=== PATIENT | female | born 1935 | race Caucasian/White ===

== ENCOUNTER 2018-10-03 00:10 | Inpatient (IN) | payer MEDICARE, OTHER, SELFPAY ==
[2018-10-03] VITALS (19 sets, daily range): BP systolic 130–183; BP diastolic 60–79; PULSE 51–66; RESP 12–20; TEMP 36–37; O2SAT 96–99; BMI 23.3
--- NOTE | 2018-10-03 | PATH_ITS ---
[facility] Accession Number: [id number] . 01 Material submitted: . hernia - RIGHT FEMORAL HERNIA SAC . 02 Diagnosis: Right Femoral Sac, Hernia Repair: Mildly inflamed portions of fibroconnective/fibroadipose tissue with a focal mesothelial lining, consistent with hernia sac and contents; negative for malignancy. MRV/10/07/2018 . 02 Electronically signed: . Jocelynn Bunn MD, Pathologist NPI- [id number] . 01 Gross description: . Received in formalin, labeled right femoral hernia sac, are multiple pieces of barba-yellow membranous adipose tissue (6.7 x 4.6 x 1.3 cm in aggregate). [employer] tissue submitted in cassette A1. ([id number]) /MRV . 02 Pathologist provided ICD-10: K40.90 . 02 CPT . 486070 Performed at: 01 [facility] [address], [place], [place] [id number] MD Jose Floyd MD Phone: [phone] Performed at: [address] [facility] [address] [place], [place] [id number] MD Rashmi Siegel MD Phone: [phone]
--- NOTE | 2018-10-03 00:28 | ED.ABDPAIN ---
HPI - Abdominal Pain General Chief Complaint: Abdominal Pain Stated Complaint: has belly pain Time Seen by Provider: 10/03/18 00:14 Source: patient Mode of arrival: ambulatory Limitations: no limitations History of Present Illness HPI narrative: Otherwise healthy 83-year-old female here for evaluation of vomiting and abdominal pain. Patient states she was at her normal state health earlier today when she started having episodes of vomiting. In started noticing lower abdominal pain and a lump in her right lower abdomen. No urinary symptoms. Arrived here with her daughter and by private vehicle. Related Data Home Medications Medication Instructions Recorded Confirmed No Known Home Medications 10/03/18 10/03/18 Allergies Allergy/AdvReac Type Severity Reaction Status Date / Time azithromycin Allergy Verified 10/03/18 00:28 Penicillins Allergy Verified 10/03/18 00:28 Review of Systems Constitutional Denies fever(s) and Denies headache(s) ENT Ears, Nose, Mouth, and Throat: Denies headache(s) Cardiovascular Denies chest pain and Denies dyspnea Respiratory Denies dyspnea Gastrointestinal Gastrointestinal: Reports abdominal pain, Denies change in stool character, Reports nausea and Denies vomiting Genitourinary Denies dysuria Musculoskeletal Denies myalgias and Denies arthralgias Integumentary/Breasts Denies rash Neurologic Denies behavioral changes and Denies headache(s) Psychiatric Denies behavioral changes Hematologic/Lymphatic Denies easy bleeding and Denies easy bruising COUNTS INCLUDE 234 BEDS AT THE [facility] Medical History (Updated 10/03/18 @ 02:09 by Dago Meyers DO) Breast cancer (Acute) Surgical History History of mastectomy (Acute) Hx of appendectomy (Acute) Social History Smoking Status: Never smoker Social History Smoking Status: Never smoker Exam Initial Vital Signs Initial Vital Signs: Vital Signs Temperature 97.4 F L 10/03/18 00:20 Pulse Rate 55 L 10/03/18 00:20 Respiratory Rate 16 10/03/18 00:20 Blood Pressure 166/74 H 10/03/18 00:20 Pulse Oximetry 98 10/03/18 00:20 Const General: cooperative, well developed, well groomed and No acute distress Orientation: alert and awake HENSC Head: normal to inspection and normocephalic Resp Effort & Inspection: normal respiratory effort Auscultation: clear to auscultation bilaterally Cardio Rate: regular rate Rhythm: regular rhythm Pulses: radial pulses present GI Inspection: non-distended Palpation: soft, No firm and tender (Right lower abdomen) Other: Patient has a lemon size mass in the right inguinal area that was tender to palpation. Patient states this is the source of her abdominal pain. Skin Lesions: no lesions Rashes: no rashes Neuro General: alert, awake and oriented x3 Cognition: normal cognition Speech: speech normal Motor: muscle tone normal throughout Extrem General: normal to inspection and capillary refill normal Psych Appearance: grossly normal and well kempt Scores GCS Fly coma scale eye opening: Spontaneous [place] coma scale verbal response: Orientated [place] coma scale motor response: Obey commands [place] coma scale total score: 15 Course Orders Ordered: ED Orders 10/03/18 00:29 CT abdomen pelvis w con Stat 10/03/18 00:30 Partial Thromboplastin Time Stat Prothrombin Time INR Stat 10/03/18 00:38 Complete Blood Count AUTO DIFF Stat Comprehensive Metabolic Panel Stat Lactate (Lactic Acid) Stat Lipase Stat 10/03/18 01:52 EKG-12 Lead Stat 10/03/18 02:01 Consult to General Surgery Routine 10/03/18 02:16 Type and Screen Stat Sodium Chloride (Normal Saline 0.9%) 1,000 mls @ 125 mls/hr IV CONT AMBER Last Admin: 10/03/18 01:57 Dose: 125 mls/hr Sodium Chloride (Normal Saline 0.9%) 1,000 mls @ 125 mls/hr IV CONT AMBER Morphine Sulfate (Morphine) 2 mg IV Q4HR PRN PRN Reason: Pain, Mild (1-3) Ondansetron HCl (Zofran) 4 mg IV Q4HR PRN PRN Reason: Nausea And Vomiting Discontinued Medications Sodium Chloride (Normal Saline 0.9%) 1,000 mls @ 1,000 mls/hr IV BOLUS ONE Stop: 10/03/18 01:27 Last Infusion: 10/03/18 01:57 Dose: 1,000 mls/hr Admin: 10/03/18 00:30 Dose: 1,000 mls/hr Morphine Sulfate (Morphine) 2 mg IV NOW ONE Stop: 10/03/18 02:01 Last Admin: 10/03/18 02:05 Dose: 2 mg Ondansetron HCl (Zofran) 4 mg IV NOW ONE Stop: 10/03/18 01:52 Last Admin: 10/03/18 01:57 Dose: 4 mg Vital Signs - 8 hr 10/03/18 00:20 10/03/18 01:35 10/03/18 02:00 Temperature 97.4 F L Pulse Rate 55 L 63 58 L Respiratory Rate 16 20 12 Blood Pressure 166/74 H Blood Pressure [Left Arm] 183/74 H 161/69 H Pulse Oximetry 98 96 96 MDM - Abdominal Pain Lab Data Attestation: I reviewed the patient's lab results. Result diagrams: 10/03/18 00:38 10/03/18 00:38 Lab Results 10/03/18 10/03/18 10/03/18 Range/Units 00:30 00:38 00:38 WBC 9.1 (4.5-11.0) X10^3/uL RBC 4.07 (4.0-5.2) X10^6/uL Hgb 12.1 (12.0-16.0) g/dL Hct 36.1 (36-46) % MCV 88.8 (80-100) fL MCH 29.6 (26-34) PG MCHC 33.4 (30-36) % RDW 14.6 (11.6-14.8) % Plt Count 189 (150-400) X10^3/uL Neut % (Auto) 78.8 H (50-75) % Lymph % (Auto) 9.4 L (25-40) % [place] % (Auto) 10.0 (3-14) % Eos % (Auto) 0.9 L (2-4) % Baso % (Auto) 0.9 (0-2) % Neut # (Auto) 7100 H (6626-8011) /uL Lymph # (Auto) 900 L (7299-5216) /uL [place] # (Auto) 900 (0-900) /uL Eos # (Auto) 100 (0-450) /uL Baso # (Auto) 100 (0-100) /uL PT 11.6 (10.1-12.7) SECONDS INR 1.0 (0.9-1.3) APTT 30 (26.4-36.2) SECONDS Sodium 139 (137-145) mmol/L Potassium 3.9 (3.4-5.1) mmol/L Chloride 102 (98-107) mmol/L Carbon Dioxide 28 (22-32) mmol/L BUN 16 (7-17) mg/dL Creatinine 0.70 (0.52-1.04) mg/dL Estimated GFR > 60.0 (>60) mL/min BUN/Creatinine Ratio 22.9 H (6-22) Glucose 151 H (80-110) mg/dL Lactate (0.7-2.1) mmol/L Calcium 10.2 (8.4-10.2) mg/dL Total Bilirubin 0.7 (0.2-1.3) mg/dL AST 30 (14-36) IU/L ALT 22 (9-52) IU/L Alkaline Phosphatase 155 H (38-126) U/L Total Protein 7.1 (6.3-8.2) g/dL Albumin 4.4 (3.5-5.0) g/dL Globulin 2.7 (1.7-4.1) g/dL Albumin/Globulin Ratio 1.6 (1.0-2.8) Lipase 91 (23-300) U/L 10/03/18 Range/Units 00:38 WBC (4.5-11.0) X10^3/uL RBC (4.0-5.2) X10^6/uL Hgb (12.0-16.0) g/dL Hct (36-46) % MCV (80-100) fL MCH (26-34) PG MCHC (30-36) % RDW (11.6-14.8) % Plt Count (150-400) X10^3/uL Neut % (Auto) (50-75) % Lymph % (Auto) (25-40) % [place] % (Auto) (3-14) % Eos % (Auto) (2-4) % Baso % (Auto) (0-2) % Neut # (Auto) (5860-4458) /uL Lymph # (Auto) (0418-2291) /uL Denton # (Auto) (0-900) /uL Eos # (Auto) (0-450) /uL Baso # (Auto) (0-100) /uL PT (10.1-12.7) SECONDS INR (0.9-1.3) APTT (26.4-36.2) SECONDS Sodium (137-145) mmol/L Potassium (3.4-5.1) mmol/L Chloride (98-107) mmol/L Carbon Dioxide (22-32) mmol/L BUN (7-17) mg/dL Creatinine (0.52-1.04) mg/dL Estimated GFR (>60) mL/min BUN/Creatinine Ratio (6-22) Glucose (80-110) mg/dL Lactate 1.0 (0.7-2.1) mmol/L Calcium (8.4-10.2) mg/dL Total Bilirubin (0.2-1.3) mg/dL AST (14-36) IU/L ALT (9-52) IU/L Alkaline Phosphatase (38-126) U/L Total Protein (6.3-8.2) g/dL Albumin (3.5-5.0) g/dL Globulin (1.7-4.1) g/dL Albumin/Globulin Ratio (1.0-2.8) Lipase (23-300) U/L Point of care testing: Urine Dip Bedside Urine Glucose Negative Bedside Urine Bilirubin - Negative Bedside Urine Ketone +/- 5 Urine Specific Renton 1.025 Bedside Urine Occult Blood - Negative Bedside Urine pH 6.0 Bedside Urine Protein - Negative Bedside Urine Urobilinogen - Negative Bedside Urine Nitrite - Negative Bedside Urine Leukocytes - Negative Esterase Imaging Data CT scan - abdomen: Radiologist's impression: Small-bowel obstruction caused by right inguinal hernia containing obstructed small bowel. There is a small amount of ascites in the right inguinal hernia sac which is likely reactive. Indeterminate 5 mm right lower lobe pulmonary nodule. Follow-up as clinically indicated. Slightly asymmetric wear the left acetabular component of a total hip arthroplasty. There may be proximal femur periprosthetic loosening. Correlate with plain films. ECG Data Attestation: I personally reviewed and interpreted this ECG as follows: Prior ECG tracings: not available for review Interpretation: Sinus bradycardia Ventricular rate of 59 Normal axis Normal QRS Normal QTC Nonspecific ST T wave changes MDM Narrative Medical decision making narrative: Patient does have a lump that is tender in her right lower quadrant. CT scan does show what appears to be an inguinal hernia causing a small bowel obstruction. Patient refused NG tube here in the ER. She stated that her nausea was much better after the IV Zofran. Attempted to reduce the hernia here in the emergency department after medications. Was able to reduce the size of the hernia greatly however was unable to completely reduce the hernia. I discussed the case with Dr. Farrell with General surgery who will admit the patient for planned operative surgery in the morning. I discussed this with the patient to the daughter who was at bedside expressed understanding and agreement. I also informed them of the lung nodule that was seen on the CT scan. Informed that they needed to contact her primary doctor for follow-up. We also discussed the possible issue with the prosthesis of the left hip. She states that she has an appointment to see her orthopedic surgeon in [place] sometime in the near future. Will admit for further evaluation and treatment. Discharge Plan Departure Patient Disposition: Admitted As Inpatient Clinical Impression: Hernia, inguinal, right, Small bowel obstruction, Incidental pulmonary nodule, > 3mm and < 8mm Admit Date/Time: 10/03/18 02:10 Admit Provider: Sean Farrell
--- NOTE | 2018-10-03 00:29 | DI.CT.S_ITS ---
PROCEDURE: CT ABDOMEN PELVIS W CON INDICATIONS: Right lower quadrant mass concern for hernia TECHNIQUE: After the administration of intravenous contrast, 5 mm thick sections acquired from the diaphragm to the symphysis. 5 mm coronal and sagittal reformats were acquired. For radiation dose reduction, the following was used: automated exposure control, adjustment of mA and/or kV according to patient size. COMPARISON: None. FINDINGS: Image quality: Streaking artifact and beam hardening artifacts are noted from patient's arms and bilateral hip prosthesis. ABDOMEN: Lung bases: Scarring/atelectasis in posterior aspect of the lateral lung bases are seen. 5 mm nodular density in posterior aspect of right lower lobe the right lung base is seen series 4 image 5. Heart size is normal. Solid organs: Liver is enlarged, no discrete hepatic lesion is seen. Gallbladder is not visualized, suggest clinical correlation for prior cholecystectomy.. Biliary system is non dilated. Pancreas enhances normally. Spleen is normal in size and enhancement. No adrenal nodules. Kidneys demonstrate normal size and enhancement, without hydronephrosis. Peritoneum and bowel: Moderately fluid distended small bowel loops are noted as well abdomen. There is a moderate-sized right inguinal hernia containing fluid and a loop of small bowel. There is decompression of bowel loops exiting the herniation sac. PICC in the small bowel loop within herniation sac is seen. No other area of bowel wall thickening. Small amount of ascites fluid in lower abdomen or pelvis. No gross free air. Nodes and vessels: No retroperitoneal or mesenteric adenopathy by size criteria. Aorta and inferior vena cava are normal in size. Miscellaneous: No ventral hernias. PELVIS: Genitourinary: Bladder wall thickness is normal. Miscellaneous: No inguinal adenopathy. No left inguinal hernia. Bones: Patient is status post prior bilateral total hip arthroplasty. No obvious hardware loosening or failure is seen. Clinical correlation is recommended. Comparison with prior study can also be helpful. No acute fracture or dislocation. Osteoarthritic changes throughout bony pelvis. Degenerative disc disease at L4-5 and L5-S1 levels are seen with grade 1 anterolisthesis of L4 on L5. IMPRESSION: 1. Finding is consistent with distal small bowel obstruction with transition point involving right inguinal hernia and possibly early incarcerated small bowel loop within the herniation sac. Small to moderate amount of ascites fluid in lower abdomen or pelvis. No gross free air. 2. Incidental finding of 5 mm right lower lobe nodule, CT of chest followup is recommended. 3. Patient is status post bilateral total hip arthroplasty. Questionable asymmetric wear involving left acetabular component. Comparison with prior radiograph can be helpful. No discrepancies. Dictated by: Matt Jordan M.D. on 10/03/2018 at 8:40 Approved by: Matt Jordan M.D. on 10/03/2018 at 8:50
[2018-10-03] MEDS: SODIUM CHLORIDE 0.9% 1,000 ML 1000 ML IV (00:30)
[2018-10-03 00:54] LABS: Add Manual Diff / Slide Review NO; Basophils Absolute Auto 100 /uL (0-100); Basophils Percent Auto 0.9 % (0-2); Eosinophils Absolute Auto 100 /uL (0-450); Eosinophils Percent Auto 0.9 % (2-4); Hematocrit 36.1 % (36-46); Hemoglobin 12.1 g/dL (12.0-16.0); Lymphocytes Absolute Auto 900 /uL (1100-4500); Lymphocytes Percent Auto 9.4 % (25-40); Mean Corpuscular HGB Conc 33.4 % (30-36); Mean Corpuscular Hemoglobin 29.6 PG (26-34); Mean Corpuscular Volume 88.8 fL (80-100); Monocytes Absolute Auto 900 /uL (0-900); Neutrophils Absolute Auto 7100 /uL (1500-7000); Neutrophils Percent Auto 78.8 % (50-75); Platelet Count 189 X10^3/uL (150-400); Red Blood Cell Count 4.07 X10^6/uL (4.0-5.2); Red Cell Distribution Width 14.6 % (11.6-14.8); White Blood Cell Count 9.1 X10^3/uL (4.5-11.0)
[2018-10-03 01:01] LABS: Alanine Aminotransferase 22 IU/L (9-52); Albumin 4.4 g/dL (3.5-5.0); Albumin Globulin Ratio 1.6 (1.0-2.8); Alkaline Phosphatase 155 U/L (38-126); Aspartate Aminotransferase 30 IU/L (14-36); BUN Creatinine Ratio 22.9 (6-22); Bilirubin Total 0.7 mg/dL (0.2-1.3); Blood Urea Nitrogen 16 mg/dL (7-17); Calcium 10.2 mg/dL (8.4-10.2); Carbon Dioxide 28 mmol/L (22-32); Chloride 102 mmol/L (98-107); Estimated Glomerular Filt Rate > 60.0 mL/min (>60); Globulin 2.7 g/dL (1.7-4.1); Glucose 151 mg/dL (80-110); HEMOLYSIS < 15 (0-50); Lipase 91 U/L (23-300); Potassium 3.9 mmol/L (3.4-5.1); Sodium 139 mmol/L (137-145); Total Protein 7.1 g/dL (6.3-8.2)
[2018-10-03] MEDS: SODIUM CHLORIDE 0.9% 1,000 ML 125 ML IV (01:57)
[2018-10-03] MEDS: ONDANSETRON 4 MG/2 ML INJ IV (01:57)
[2018-10-03] MEDS: MORPHINE 4 MG/ML INJ 2 MG IV (02:05)
[2018-10-03 02:18] LABS: PTT Partial Thromboplastin Tim 30 SECONDS (26.4-36.2); Prothrombin Time 11.6 SECONDS (10.1-12.7)
--- NOTE | 2018-10-03 04:02 | PC.NURSE ---
Pt arrived on unit at 0250 with daughter. She was given 2 mg MS IVP in ER and was very desirous to sleep and be left alone. She was steady on her feet for a stand and pivot to BSC. She appears to have urine urgency issues. She is now wearing a pull up. Urine was clear and pale yellow. Pt rates pain = 3/10. Hernia is hard and large and per daughter evolved at 1999 last night (10/02/18). LBM 10/02/18, + BTs. LS clear and heart rhythm S1, S2. Pt is able to sleep. Daughter sleeping in room.
--- NOTE | 2018-10-03 06:28 | PM.HP.1 ---
History of Present Illness Date Patient Seen: 10/03/18 Time Patient Seen: 06:41 Chief complaint: has belly pain Narrative: Patient was well up until yesterday when she developed abdominal pain and vomiting and noticed a painful mass in the right groin. She came to the emergency room with a diagnosis of small-bowel obstruction secondary to incarcerated right inguinal hernia was made. She is admitted for urgent surgery. Patient History Medical History Breast cancer (Acute) Surgical History History of mastectomy (Acute) Hx of appendectomy (Acute) Social History household members: spouse Smoking Status: Former smoker Family & Social History Social History: household members spouse Prior Living Arrangements House Safety & Behavioral: Feels Safe in Current Yes Environment Been Physically Hurt or No Threatened By a Person Suicidal Ideation Description None Suicide Plan Description No Plan Tobacco & Substance use: Tobacco type cigarettes Smoking Status Former smoker alcohol intake frequency 0-2 drinks per day Substance Use Type does not use Meds Home Medications Medication Instructions Recorded Confirmed Type No Known Home Medications 10/03/18 10/03/18 History Allergies Allergy/AdvReac Type Severity Reaction Status Date / Time azithromycin Allergy Verified 10/03/18 00:28 Penicillins Allergy Verified 10/03/18 00:28 Exam Vital Signs (past 8 hours): - 10/03/18 00:20 10/03/18 01:35 10/03/18 02:00 Temperature 97.4 F L Pulse Rate 55 L 63 58 L Respiratory Rate 16 20 12 Blood Pressure 166/74 H Blood Pressure [Left Arm] 183/74 H 161/69 H Pulse Oximetry 98 96 96 10/03/18 03:05 10/03/18 06:09 Temperature 98.4 F 98.0 F Pulse Rate 66 63 Respiratory Rate 16 16 Blood Pressure 149/74 H 144/66 H Blood Pressure [Left Arm] Pulse Oximetry 96 98 Oxygen Delivery Method Room Air Narrative Exam Narrative: Patient is alert and oriented complaining of right inguinal and abdominal pain She is afebrile with stable vital signs Lungs distant breath sounds but no rales or wheezes Heart regular rhythm no murmur Abdomen mildly distended but nontender there are no abdominal masses Right groin shows a lemon sized incarcerated inguinal possibly femoral hernia this is not reducible. She has a remote history of right breast cancer with a right mastectomy. Otherwise her physical is unremarkable. Objective Labs Result Diagrams: 10/03/18 00:38 10/03/18 00:38 Labs: Laboratory Results - last 24 hr 10/03/18 10/03/18 10/03/18 00:30 00:38 00:38 WBC 9.1 RBC 4.07 Hgb 12.1 Hct 36.1 MCV 88.8 MCH 29.6 MCHC 33.4 RDW 14.6 Plt Count 189 Neut % (Auto) 78.8 H Lymph % (Auto) 9.4 L Thayer % (Auto) 10.0 Eos % (Auto) 0.9 L Baso % (Auto) 0.9 Neut # (Auto) 7100 H Lymph # (Auto) 900 L Thayer # (Auto) 900 Eos # (Auto) 100 Baso # (Auto) 100 PT 11.6 INR 1.0 APTT 30 Sodium 139 Potassium 3.9 Chloride 102 Carbon Dioxide 28 BUN 16 Creatinine 0.70 Estimated GFR > 60.0 BUN/Creatinine Ratio 22.9 H Glucose 151 H Lactate Calcium 10.2 Total Bilirubin 0.7 AST 30 ALT 22 Alkaline Phosphatase 155 H Total Protein 7.1 Albumin 4.4 Globulin 2.7 Albumin/Globulin Ratio 1.6 Lipase 91 Blood Type Antibody Screen Antibody Identification 10/03/18 10/03/18 00:38 02:16 WBC RBC Hgb Hct MCV MCH MCHC RDW Plt Count Neut % (Auto) Lymph % (Auto) Thayer % (Auto) Eos % (Auto) Baso % (Auto) Neut # (Auto) Lymph # (Auto) Thayer # (Auto) Eos # (Auto) Baso # (Auto) PT INR APTT Sodium Potassium Chloride Carbon Dioxide BUN Creatinine Estimated GFR BUN/Creatinine Ratio Glucose Lactate 1.0 Calcium Total Bilirubin AST ALT Alkaline Phosphatase Total Protein Albumin Globulin Albumin/Globulin Ratio Lipase Blood Type A Negative Antibody Screen Positive Antibody Identification Anti-D Assessment & Plan Assessment & Plan narrative: Patient had abdominal pelvic CT which shows bowel obstruction secondary to right inguinal hernia. She is admitted for IV fluid therapy and urgent repair of an incarcerated right femoral hernia and release of bowel obstruction. Patient and her daughter are here in course understand and agree to the procedure and have no further questions Quality VTE Deep Vein Thrombosis/Pulmonary Embolism Present on Admission: No
[2018-10-03] MEDS: LACTATED RINGERS 1,000 ML 42 ML IV (06:40)
[2018-10-03] MEDS: CEFAZOLIN 2 GM/100 ML FROZ.PIGGY IV (06:45)
--- NOTE | 2018-10-03 07:07 | SUR.OPER ---
Supine on padded OR bed, head on pillow, arms secured on padded arm boards at <90 degrees abduction, legs uncrossed, safety belt at thigh, tape over blanket over lower legs.
[2018-10-03] MEDS: BUPIVACAINE 0.5% (PF) VIAL 30 ML INJ (07:15)
--- NOTE | 2018-10-03 07:24 | PC.NURSE ---
Day shift: Pt not on AC unit at this time. Per NOC RN report Pt in surgery at 0630 for left hernia repair.
--- NOTE | 2018-10-03 07:41 | PM.OP.1 ---
Operative Date/Time/Diagnoses Date of procedure: 10/03/18 Time of procedure: 07:41 Pre-op diagnosis: Incarcerated inguinal femoral hernia with small-bowel obstruction Post-op diagnosis: same Procedure & Clinicians Procedure: Patient was properly identified during surgical pause prepped and draped sterile fashion expose the right lower quadrant of the abdomen and right groin. Under general endotracheal anesthesia. right groin incision was made exposing the upon neurosis of the external oblique muscle which was opened in the direction of its fibers to expose the ilioinguinal nerve which was spared of any injury and the round ligament in this female. Patient had an incarcerated femoral hernia with also an inguinal component. The small bowel incarceration was in the femoral component which required division of the of the inguinal ligament for release of the hernia contents. Hernia sac contained hemorrhagic fluid in the sac was opened and the fluid was aspirated small bowel contained within the hernia sac was carefully inspected and observe for nearly 10 minutes. Initially it was cyanotic. Then it gradually turned pink but there were some areas of venous congestion remaining in that segment of bowel I observed until there was some significant peristalsis through that segment. Then I deemed that the segment was viable. Therefore I did not resect that piece of bowel. the hernia sac was removed and closed with a 2 0 Vicryl. a standard Camron ligament Neetu repair was then done with 2 0 Prolene suture. I did not implant mesh because of the ischemic bowel present in the field. this 83-year-old lady will probably be be well served simply with the Neetu repair. External oblique aponeurosis reapproximated with 2 Vicryl. subcu closed with 2 0 Vicryl excellent hemostasis was achieved with the Bovie and those sutures. after % Marcaine was administered. Skin was stapled sterile dressings applied procedure well tolerated. Same procedure as scheduled: Yes Indications: Small bowel obstruction with an incarcerated inguinal hernia. Surgeon: Sean Farrell Click Yes if Unassisted: Yes Anesthesia Type: General Operative Notes Findings: Incarcerated right femoral hernia with ischemic small bowel. Closure Type: primary Specimen(s): other (Hernia sac.) Applied: catheter Estimated Blood Loss (mL): 50 Blood products transfused: none Procedure in detail: Under satisfactory general endotracheal anesthesia patient was properly identified during surgical pause prepped draped sterile fashion exposing the right groin. Right inguinal incision was made. patient was found to have an incarcerated right femoral hernia. upon recess of the external oblique was opened and then divided to release this entrapped small bowel in the femoral hernia component. The sac was opened. hemorrhagic fluid aspirated. Small bowel was carefully inspected and wear with whereas it was ischemic on initial appearance, it eventually turned pink and had peristalsis. Therefore was not resected. I performed a standard Camron ligament with a repair with 2 0 Prolene. This close the femoral space. also close the inguinal component of the hernia. upon neurosis of the external oblique closed with a running 2 0 Vicryl. subcu closed with fine Vicryl. there was excellent hemostasis with the Bovie and the sutures. subcu 0.5% Marcaine was administered. The skin stapled sterile dressings applied procedure well tolerated Complications: none Condition: stable Disposition: PACU
--- NOTE | 2018-10-03 08:35 | CM.IDA ---
Initial DCP Assessment Note: Pt is an 83 yo female, resident of [facility]. Pt presents w/abd pain and now is scheduled today for urgent repair of an incarcerated right hernia and release of SBO. PCP: Unknown Payer: Medicare/[employer] Reviewed chart. Pt will be off the floor for surgery today w/ Dr Mcdaniels. Supportive spouse and dtr have been present and available. Per review, pt is very indp and healthy at baseline and it is expected that there will be no barriers to safe return home when medically cleared. Following closely for any DC needs or concerns that might arise. DEAN Maloney Discharge Planning/Care Management CM Discharge Assessment Start: 10/03/18 08:32 Freq: Status: Active Protocol: Document 10/03/18 08:32 RODRÍGUEZ (Rec: 10/03/18 08:35 [email or web address] [id number]) Discharge Planning Assessment Assigned Program Research Specialist DEAN Danielson DPOA/Assigned Designee Name August Villagran, spouse Contact Information [phone] Advance Directives? No Advance Directives on File No History Provided By Significant Other Medical Record Prior Living Arrangements House Household Members spouse Type of transporation used prior to Drives own vehicle admit Independent with ADL's Yes Is patient alert and oriented? Yes Barriers to Discharge No Discharge Plan Home Transportation Arrangement Family Referrals Initiated None needed Review Status In Process
[2018-10-03] MEDS: DEXTROSE 5%-0.45% NS 1,000 ML 50 ML IV (09:03)
[2018-10-03] MEDS: OXYCODONE/ACETAMINOPHEN 5/325 TABLET 1 TAB PO ×2 (09:07→19:05)
[2018-10-03] MEDS: GABAPENTIN 300 MG CAPSULE PO ×2 (09:35→20:25)
[2018-10-03] MEDS: ENOXAPARIN 30 MG/0.3 ML SYRINGE SUBCUT (09:35)
--- NOTE | 2018-10-03 11:09 | PC.NURSE ---
Day shift: Pt back in room on AC unit at approx 0930 today. Pain rt lower ABD (surgery site) 4/10. Medicated for pain per MAR (Percocet) and pain 2/10 on reassessment. Tolerating clear liquids with no nausea. [place]ullivan remain patent with good output. VS WNL. RA 98%. Instructed on I.S. use and Pt using as directed. Daughter at bedside for support. Remains HFR. Bed alarm on. Pt has been in good spirits and has been A&Ox3.
--- NOTE | 2018-10-03 16:09 | PC.NURSE ---
Addendum entered by Carmen Boucher R.N. 10/03/18 21:19: Pt had uneventful evening. Med @ 1900 for discomfort w/good relief. Dsg remains CDI. Osullivan cath patent clear yellow urine. Stable post op course. Call light w/in reach, bed alarm on for pt safety. Continue w/plan of care. Original Note: Pt awake, visiting w/family. Lungs clear, SpO2 97% RA Dsg to right lower abdomen CDI. Pt denies any discomfort at this time. IVF infusing as per orders @ 50cc/hr via pump w/o incidence. ' Stable post op course. ' Call light w/in reach, bed alarm on for pt safety.
[2018-10-04] VITALS (12 sets, daily range): BP systolic 102–147; BP diastolic 56–71; PULSE 52–74; RESP 15–18; TEMP 36.6–38.8; O2SAT 94–100
[2018-10-04] MEDS: DEXTROSE 5%-0.45% NS 1,000 ML 50 ML IV (00:32)
[2018-10-04] MEDS: GABAPENTIN 300 MG CAPSULE PO ×2 (08:57→20:40)
[2018-10-04] MEDS: ENOXAPARIN 40 MG/0.4 ML SYRINGE SUBCUT (08:57)
[2018-10-04] MEDS: DOCUSATE 100 MG CAPSULE PO ×2 (08:57→20:40)
--- NOTE | 2018-10-04 09:42 | PM.PN.1 ---
Subjective Date Patient Seen: 10/04/18 Time Patient Seen: 09:42 Interval history: Patient is 1 day postop repair of an aid car serrated right femoral hernia with incarcerated small bowel. Small bowel obstruction. Subjectively she feels better than preop she is tolerating a solid diet with no nausea vomiting has no abdominal pain. Minimal incisional pain. Exam Vital Signs (past 8 hours): - 10/04/18 06:13 10/04/18 08:00 Temperature 98.1 F 97.9 F Pulse Rate 60 52 L Respiratory Rate 18 18 Blood Pressure 130/62 147/63 H Pulse Oximetry 97 100 Oxygen Delivery Method Room Air Oxygen Flow Rate 0 Narrative Exam Narrative: Patient is alert and oriented afebrile stable vital signs. Abdomen is soft and nontender. Right inguinal incision is healing nicely with no inflammatory changes. Objective Labs Result Diagrams: 10/03/18 00:38 10/03/18 00:38 Assessment & Plan Assessment & Plan narrative: Patient is 83 years old lives on our [facility]. She has not been ambulating yet her Osullivan is out. She has not had a bowel movement yet. My plan is to give her a laxative have physical therapy ambulate the patient and if she tolerates that well will send her home tomorrow. Quality VTE Deep Vein Thrombosis/Pulmonary Embolism Present on Admission: No
--- NOTE | 2018-10-04 09:45 | P.PN_ITS ---
Subjective Date Patient Seen: 10/04/18 Time Patient Seen: 09:42 Interval history: Patient is 1 day postop repair of an aid car serrated right femoral hernia with incarcerated small bowel. Small bowel obstruction. Subjectively she feels better than preop she is tolerating a solid diet with no nausea vomiting has no abdominal pain. Minimal incisional pain. Exam Vital Signs (past 8 hours): - 10/04/18 06:13 10/04/18 08:00 Temperature 98.1 F 97.9 F Pulse Rate 60 52 L Respiratory Rate 18 18 Blood Pressure 130/62 147/63 H Pulse Oximetry 97 100 Oxygen Delivery Method Room Air Oxygen Flow Rate 0 Narrative Exam Narrative: Patient is alert and oriented afebrile stable vital signs. Abdomen is soft and nontender. Right inguinal incision is healing nicely with no inflammatory changes. Objective Labs Result Diagrams: 10/03/18 00:38 10/03/18 00:38 Assessment & Plan Assessment & Plan narrative: Patient is 83 years old lives on our [facility]. She has not been ambulating yet her Osullivan is out. She has not had a bowel movement yet. My plan is to give her a laxative have physical therapy ambulate the patient and if she tolerates that well will send her home tomorrow. Quality VTE Deep Vein Thrombosis/Pulmonary Embolism Present on Admission: No
[2018-10-04] MEDS: POLYETHYLENE GLYCOL 3350 17 GM POWD.PACK PO (10:41)
--- NOTE | 2018-10-04 12:29 | PT.IIE ---
Current Diagnoses Unilateral femoral hernia, with gangrene, not specified as recurrent (10/03/18) Surgery Performed Operation Date: 10/03/18 06:20 Actual Procedures p Hernia Repair - Femoral - Sean Farrell MD Surgical History (Last Reviewed 10/03/18 @ 06:42 by Sean Farrell MD) History of mastectomy (Acute) Hx of appendectomy (Acute) Medical History (Last Reviewed 10/03/18 @ 06:42 by Sean Farrell MD) Breast cancer (Acute) Physical Therapy Inpatient Evaluation/Re-Eval M1 PT/OT-IP Prior Functional Status Start: 10/04/18 12:10 Freq: NEEDED Status: Active Protocol: Document 10/04/18 11:40 HH (Rec: 10/04/18 12:29 [email or web address]) Medical Review Prior Functional Status Medical History Reviewed Yes Diet/Fluid Consistency Regular Communication No deficits noted. Able to make needs known Mobility and Gait independent mobility at home and community with SPC as needed due to weakness on L hip as she stated. Activities of Daily Living and IADL's Independent with ADLs and IADLs. Social History Household Members spouse Living Arrangements House Number of Floors (Floors) Two Floors Number of Stairs To Enter/Railing? No KATHY Pt primarily lives on main floor with access to bathroom and bedroom. Home Environment Standard Height Toilet Home Equipment Front Wheel Walker Straight Cane [facility] Bed Grab Bars Near Toilet Grab Bars In Shower Employment Status Retired Additional Social History Comment Pt lives in [facility] with who is 92 yo and very healthy. Pt has 7 children and very attentive regarding pt;s condition per . Pt presents w/abd pain since early this week and had urgent repair of an incarcerated right hernia and release of SBO. Past surgical history includes 2 hip replacements and 1 knee replacement. M2 PT-IP Current Condition Start: 10/04/18 12:10 Freq: NEEDED Status: Active Protocol: Document 10/04/18 11:40 HH (Rec: 10/04/18 12:29 [email or web address]) Physical Therapy Current Condition Current Condition Evaluation Date 10/04/18 Treatment Diagnosis Incarcerated R hernia repair for SBO, impaired activity tolerance Onset Date 10/03/18 Precautions Abdominal Surgery Precautions Log Roll Lifting Restrictions Gait Belt above Incisional Area Weight Bearing Status Weight Bearing Status Weight Bear as Tolerated M3 PT-IP Subjective Start: 10/04/18 12:10 Freq: NEEDED Status: Active Protocol: Document 10/04/18 11:40 HH (Rec: 10/04/18 12:29 [email or web address]) Subjective Physical Therapy Visit Type Type Initial Evaluation Visit Start Time 11:40 Visit Stop Time 12:05 Total Visit Minutes 25 Notes Per RN, pt has gotten OOB for BSC with 1pa. Pt's friend at bedside. Number of JACQUARD LOOM WEAVER Visits 0 Physical Therapy Visit Comments Patient Comments I dont have any pain at this point and want to get out of bed. Patient Goals To return home with Therapy Pain Assessment Pain Present Pain Present Denied Pain M4 PT-IP Mobility and Gait Start: 10/04/18 12:10 Freq: NEEDED Status: Active Protocol: Document 10/04/18 11:40 HH (Rec: 10/04/18 12:29 [email or web address]) PT-Bed Mobility Assessment Rolling Type of Rolling Log Rolling Roll to Left Level of Assist Contact Guard Assistance Scooting Scooting to Edge of Bed Contact Guard Assistance PT-Transfer Assessment Sit to and From Stand Sit to and from Stand Contact Guard Assistance Use of Upper Extremities Equipment Transfer Assistive Device Gait Belt Front Wheeled Walker Orthotic/Prosthetic Devices or Brace: No Transfers Transfer Destination Bed Chair Transfer Technique Stand Step Pivot Transfer Ability Level of Assist Contact Guard Assistance Use of Upper Extremities Comments Mobility Comments Instructed pt log roll method to sit EOB on L side. Pt required cues for sequencing but able to perform with CGA. Pt then stood up from EOB with CGA FWW. Pt appears increased trunk flexion and slightly unsteady in standing position. Pt amb from EOB to bedside chair on R with FWW CGA. Pt presents uneven step length and excessive lateral sway during amb. She states I feel a little weak and unsteady but im okay. She was able to safely transfer back to chair with proper and hand placement and walker management. Gait Assessment Gait Gait Assistance Required: Contact Guard Assist Distance (Feet) 15 Able to Maintain Weight Bearing Status Yes During Gait Assistive Devices Assistive Device None Gait Belt Front Wheeled Walker Orthotic/Prosthetic Devices or Brace: No Gait Deviations General Gait Pattern Decreased Stride Length Decreased Feet Clearance Flexed Trunk Lateral Trunk Lean Factors Limiting Gait Function Factors Limiting Gait Function Decreased Activity Tolerance Decreased Strength Limited Range of Motion Pain Poor Balance Poor Safety Awareness Comments Gait Comments check mobility comment PT-Balance Assessment Sitting Balance and Reactions Static Sitting Balance Ability Normal Dynamic Sitting Balance Ability Normal Standing Balance and Reactions Static Standing Balance Ability Good Dynamic Standing Balance Ability Fair Device Used FWW M5 PT-IP Objective Assessments Start: 10/04/18 12:10 Freq: NEEDED Status: Active Protocol: Document 10/04/18 11:40 HH (Rec: 10/04/18 12:29 [email or web address]) Orientation Orientation/Cognition Level of Alertness Alert Orientation Name Age Birthday Month Date Year Day of Week Place Situation Language Function Ability No Deficits Noted Safety Awareness Understands Safety Issues Memory Description No Deficits Noted Gross Range of Motion Upper Extremity ROM Assessment Within Functional Limits Lower Extremity ROM Assessment Within Functional Limits Strength Upper Extremity Strength Assessment Within Functional Limits Lower Extremity Strength Assessment Within Functional Limits Coordination Assessment Gross Coordination Gross Coordination WNL Sensation Assessment Sensation Gross Sensation WNL Muscle Tone Muscle Tone WNL Yes M6 PT-IP Treatment Start: 10/04/18 12:10 Freq: NEEDED Status: Active Protocol: Document 10/04/18 11:40 HH (Rec: 10/04/18 12:29 [email or web address]) Physical Therapy Treatment Education Education Provided Precautions Weight Bearing Status Post-Op Packet Safety Other Treatments Other Treatment Performed education on log roll method use of pillow/ cushion for compression at surgical site for pain relief M7 PT-IP Assessment and Plan Start: 10/04/18 12:10 Freq: NEEDED Status: Active Protocol: Document 10/04/18 11:40 HH (Rec: 10/04/18 12:29 [email or web address]) PT Summary Assessment and Plan Potential Rehabilitation Potential Excellent Status of Condition at Evaluation Stable Summary Impairments Pain ROM Strength Balance Bed Mobility Transfers Gait Activity Tolerance Assessment Summary Pt is low complexity who is POD #2 Incarcerated R hernia repair for SBO. Pt appears relatively weak compared to baseline and required CGA for overall mobility due to unsteadiness and weakness. Recommended pt to use FWW at this point for stability and safety and only amb /transfer with 1 person assist. Pt is far from baseline at this point and is not safe to go home yet but expect to be d/c home once she is medically stable and reaches rehab goals . Goals Bed Mobility Goal Independent Transfer Goal Independent Cane Front Wheeled Walker Gait Goal Independent Cane Front Wheel Walker Gait Distance 200 Other Goals to safely step over a stool ( pt has a tub at home) Days to Meet Goals 5 Frequency of Treatment Frequency Of Treatment Once a Day Treatment Plan Physical Therapy Treatment Plan Bed Mobility Training Transfer Training Gait Training Therapeutic Exercise Balance Retraining Post Op Education Discharge Planning Hot or Cold Pack Neuromuscular Re-ed Other Recommendations and Next Treatment gait training with LRAD as lucio Focus Recommendations To Nursing Amount of Assist Needed 1 Person Assist Discharge Recommendations PT Discharge Recommendations Home with Assistance
--- NOTE | 2018-10-04 14:39 | OT.IP.TRT ---
Current Diagnoses Unilateral femoral hernia, with gangrene, not specified as recurrent (10/03/18) Surgery Performed Operation Date: 10/03/18 06:20 Actual Procedures p Hernia Repair - Femoral - Sean Farrell MD Occupational Therapy Treatment Note M3 OT- IP Subjective and Pain Start: 10/04/18 14:30 Freq: Status: Active Protocol: Document 10/04/18 14:30 [facility] (Rec: 10/04/18 14:38 [facility] [email or web address]) OT- Subjective Occupational Therapy Visit Type Type Administrative Note Notes Pt asleep in the room. Able to speak to pt's daughter. Pt's daughter states and all her siblings will be able to come and assist pt for all needs. Pt's daughter states that she has assisted her mom the the past when she has had hip and knee surgeries and aware of ADL equipment options. Pt at this time CGA for all mobility needs per PT eval.
--- NOTE | 2018-10-04 14:40 | OT.IP.TRT ---
Current Diagnoses Unilateral femoral hernia, with gangrene, not specified as recurrent (10/03/18) Surgery Performed Operation Date: 10/03/18 06:20 Actual Procedures p Hernia Repair - Femoral - Sean Farrell MD Occupational Therapy Treatment Note M3 OT- IP Subjective and Pain Start: 10/04/18 14:30 Freq: Status: Active Protocol: Document 10/04/18 14:30 [facility] (Rec: 10/04/18 14:38 [facility] [email or web address]) OT- Subjective Occupational Therapy Visit Type Type Administrative Note Notes Pt asleep in the room. Able to speak to pt's daughter. Pt's daughter states and all her kids will be able to come and assist pt for all needs. Pt's daughter states that she has been assist her mom the the past when she has had hip and knee surgeries and aware of ADL equipment options. Therefore OT not needed at this time, discharge OT eval orders.
[2018-10-04] MEDS: ACETAMINOPHEN 325 MG TABLET 650 MG PO (17:57)
--- NOTE | 2018-10-04 22:02 | PC.NURSE ---
pt was febrile 101.9, gave tylenol temp down to 98.5. No bowel movement, but passing gas. call light in reach. bed alarm active.
[2018-10-05] MEDS: ACETAMINOPHEN 325 MG TABLET 650 MG PO (03:49)
[2018-10-05 03:56] VITALS: BP 142/75; PULSE 61; RESP 18; TEMP 37.1; O2SAT 98
[2018-10-05 08:24] VITALS: BP 131/67; PULSE 55; RESP 16; TEMP 36.6; O2SAT 96
[2018-10-05] MEDS: DOCUSATE 100 MG CAPSULE PO (08:35)
[2018-10-05] MEDS: GABAPENTIN 300 MG CAPSULE PO (08:35)
[2018-10-05] MEDS: ENOXAPARIN 40 MG/0.4 ML SYRINGE SUBCUT (08:35)
[2018-10-05] MEDS: POLYETHYLENE GLYCOL 3350 17 GM POWD.PACK PO (08:35)
--- NOTE | 2018-10-05 09:59 | PM.DS.1 ---
History of Present Illness Chief complaint: has belly pain Narrative: Patient was well up until yesterday when she developed abdominal pain and vomiting and noticed a painful mass in the right groin. She came to the emergency room with a diagnosis of small-bowel obstruction secondary to incarcerated right inguinal hernia was made. She is admitted for urgent surgery. Discharge Providers Date of admission: 10/03/18 02:10 Discharge Date: 10/05/18 Consults: 10/03/18 02:01 Consult to General Surgery Routine Comment: Consulting Provider: Sean Farrell Reason for consultation: Small-bowel obstruction Has provider been notified: Yes 10/03/18 08:25 Consult to Discharge Planning Routine Comment: 10/04/18 08:32 Consult to Physical Therapy Evaluate & Treat Comment: Physician Instructions: Evaluate and Treat 10/04/18 08:33 Consult to Occupational Therapy Evaluate & Treat Comment: Physician Instructions: Evaluate and treat Discharge provider: Sean Farrell MD Summary Discharge Diagnosis: Incarcerated right femoral hernia with small-bowel obstruction Hospital Course: Patient was admitted through the emergency department with a very painful right inguinal femoral hernia containing small bowel with small bowel obstruction. after intravenous fluid hydration she was taken to the operating room and a right incarcerated inguinal femoral hernia was repaired. The incarcerated small bowel was very ischemic however returned to normal color with observation in the operating room. subsequent to the operation the patient has done very well has no abdominal pain no inguinal pain and is healing her incision beautifully without signs of infection. She is tolerating a solid diet with no nausea vomiting. She is passing flatus easily. She is discharged on no medications. She is enjoying normal bathing. She will have her tramaine removed by her local physicians at the end of next week. Status at Discharge Cognitive/behavioral status at discharge: oriented Functional status at discharge: independent ambulation Overall status at discharge: patient is back to baseline Time Spent with Patient Less than 30 minutes Exam Vital Signs (past 8 hours): - 10/05/18 03:56 10/05/18 08:24 Temperature 98.7 F 97.9 F Pulse Rate 61 55 L Respiratory Rate 18 16 Blood Pressure 142/75 H 131/67 Pulse Oximetry 98 96 Oxygen Delivery Method Nasal Cannula Oxygen Flow Rate 0 Objective Labs Result Diagrams: 10/03/18 00:38 10/03/18 00:38 Discharge Plan Discharge Plan Patient Disposition: Home Discharge Med Rec/Prescriptions Prescriptions: No Action No Known Home Medications RF: 0 Provider Discharge Instructions Diet: Diet as Tolerated Skin/Wound/Dressing Care Report to your healthcare provider any signs of infection, such as:: chills, fever, increased pain, unusual drainage and unusual redness Other wound treatment: remove tramaine in one week, bathe normally Discharge Data Attending Provider: Sean Farrell Admit Date/Time: 10/03/18 02:10 Quality VTE Deep Vein Thrombosis/Pulmonary Embolism Present on Admission: No
--- NOTE | 2018-10-05 11:10 | PT.IPTN ---
Current Diagnoses Unilateral femoral hernia, with gangrene, not specified as recurrent (10/03/18) Surgery Performed Operation Date: 10/03/18 06:20 Actual Procedures p Hernia Repair - Femoral - Sean Farrell MD Physical Therapy Treatment Note M2 PT-IP Current Condition Start: 10/04/18 12:10 Freq: NEEDED Status: Active Protocol: Document 10/04/18 11:40 HH (Rec: 10/04/18 12:29 [facility] [id number]) Physical Therapy Current Condition Current Condition Evaluation Date 10/04/18 Treatment Diagnosis Incarcerated R hernia repair for SBO, impaired activity tolerance Onset Date 10/03/18 Precautions Abdominal Surgery Precautions Log Roll Lifting Restrictions Gait Belt above Incisional Area Weight Bearing Status Weight Bearing Status Weight Bear as Tolerated M3 PT-IP Subjective Start: 10/04/18 12:10 Freq: NEEDED Status: Active Protocol: Document 10/05/18 11:10 [facility] (Rec: 10/05/18 11:53 [facility] [id number]) Subjective Physical Therapy Visit Type Type Patient Refusal Notes Pt and family states pt has no needs and plans on using FWW at home. M4 PT-IP Mo
--- NOTE | 2018-10-05 14:41 | PC.NURSE ---
Discharge instructions reviewed, patient states understanding and has no further questions or concerns at this time. Escorted out via wheelchair with all belongings to be discharged to home with daughter.
== END 2018-10-05 14:42 | disposition home or self-care (01) | DRG 352 ==
LOC: ED 01:54 → AC 02:11
PROVIDERS: Admitting Provider Surgery; Emergency Provider Emergency Medicine; Visit Provider Surgery
PROC: 0YQ70ZZ Repair Right Femoral Region, Open Approach (ICD-10-PCS; principal; 2018-10-03 06:20)
DX: K41.40 Unilateral femoral hernia, with gangrene, not specified as recurrent (principal); Z87.891 Personal history of nicotine dependence; R00.1 Bradycardia, unspecified
CPT/HCPCS: 36415; 36591; 49553; 74177; 80053; 81003; 83605; 83690; 85025; 85610; 85730; 86850; 86870; 86900; 86901; 88304; 93005; 94762; 96361; 96374; 96375; 97161; 97530; 99283; 99285; J0330; J0690; J1100; J1650; J2270; J2405; J2704; J3010; Q9967

== ENCOUNTER 2019-02-17 21:00 | Inpatient (IN) | payer MEDICARE, OTHER, SELFPAY ==
[2018-10-03 02:39] VITALS: BMI 23.3
[2019-02-17 21:04] VITALS: BP 170/90; PULSE 70; RESP 18; TEMP 36.2; O2SAT 99
--- NOTE | 2019-02-17 21:50 | ED.SKABFB ---
HPI - Skin/Abscess/Foreign Bdy General Chief complaint: Skin/Abscess/Foreign Body Stated complaint: LEFT FOOT INFECTION Time Seen by Provider: 02/17/19 21:49 Source: patient and family Mode of arrival: Family Vehicle Limitations: no limitations History of Present Illness HPI narrative: This is an 84-year-old female comes in with left foot infection. Patient states that she noticed changes about 3 days ago. Patient states there was a small callus on her foot there was a hole then started draining some clear issue drainage. But has increased in swelling and is quite painful to walk on. She states if she is not walking it is not painful. She has noticed some swelling into her foot and lower extremity patient has not any fevers, no chills. No chest pain, no shortness of breath, no nausea or vomiting no new issues with diarrhea constipation. She has chronic urinary incontinence, she denies any diabetes, neuropathy or similar symptoms. She did recently have a trip to [place] for a [facility] conference but states that she does not think that she had any injuries cuts or other trauma to the feet. Patient has had prior bilateral hip surgery, knee surgery. She has had a mastectomy for breast cancer in the past, appendectomy and recently had a hernia repair here at [facility] in September. She states she is allergic to penicillin and she thinks another medication. She lives on [facility]. Related Data Home Medications Medication Instructions Recorded Confirmed No Known Home Medications 10/03/18 10/03/18 Allergies Allergy/AdvReac Type Severity Reaction Status Date / Time azithromycin Allergy Verified 10/03/18 00:28 Penicillins Allergy Verified 10/03/18 00:28 Review of Systems Review of Systems ROS Unobtainable: All systems reviewed & are unremarkable except as noted in HPI and below Patient History Medical History Breast cancer (Acute) Surgical History History of mastectomy (Acute) Hx of appendectomy (Acute) Social History household members: spouse Smoking Status: Former smoker alcohol intake frequency: 0-2 drinks per day Substance Use Type: does not use Exam Narrative Exam Narrative: GENERAL: Alert and oriented x three, thin, well-appearing elderly female in mild distress. HEENT: Head normocephalic, atraumatic, EOMI, pupils reactive, face symmetric, moist mucous membranes NECK: Supple, full range of motion CARDIOVASCULAR: Regular rate and rhythm without murmurs, rubs or gallops. RESPIRATORY: Breath sounds equal bilaterally, no wheezes rales or rhonchi. ABDOMEN: Soft, nontender. Normoactive bowel sounds all 4 quadrants. 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 She has a large area of swelling on the ball of the foot extending towards the 2nd 3rd and 4th toes there is an open wound that is draining serous fluid I am not able to drain any additional purulence fluid but I am able to drain some small additional serous fluid. Patient is mildly tender to touch. There does appear to be some ecchymosis and swelling extending up underneath the toes. There is redness on the dorsum of the toes as well as into the ankle and lower leg. No clubbing. Patient has cap refill less than 2 seconds in all 5 toes. She has sensation in all toes to light touch as well as throughout foot. Neurovascularly intact. NEUROLOGICAL: Cranial nerves II through XII grossly intact. Moving all extremities SKIN: Warm, dry, no petechiae, no rashes or lesions otherwise noted than above. Initial Vital Signs Initial Vital Signs: Vital Signs Temperature 97.1 F L 02/17/19 21:04 Pulse Rate 70 02/17/19 21:04 Respiratory Rate 18 02/17/19 21:04 Blood Pressure 170/90 H 02/17/19 21:04 Pulse Oximetry 99 02/17/19 21:04 Course Orders Ordered: ED Orders 02/17/19 22:04 Wound Culture and Gram Stain Stat 02/17/19 22:05 XR foot LT min 3V Stat 02/17/19 22:21 Basic Metabolic Panel Stat Complete Blood Count AUTO DIFF Stat 02/17/19 22:33 Blood Culture Stat Lactate (Lactic Acid) Stat Acetaminophen (Tylenol) 650 mg PO Q6HR PRN PRN Reason: As Needed for Fever/Mild Pain Enoxaparin Sodium (Lovenox) 40 mg SUBCUT DAILY AMBER Ciprofloxacin (Cipro) 400 mg in 200 mls @ 200 mls/hr IV NOW [facility] Ondansetron HCl (Zofran) 4 mg IV Q8HR PRN PRN Reason: Nausea And Vomiting Pantoprazole Sodium (Protonix) 40 mg PO 0600 [facility] Vancomycin HCl (Vancomycin Per Pharmacy) 1 request MISC NOW ONE Stop: 02/17/19 23:56 Discontinued Medications Diphtheria/Tetanus/Acell Pertussis (Adacel) 0.5 ml IM .ONCE ONE Stop: 02/17/19 23:50 Last Admin: 02/17/19 23:54 Dose: 0.5 ml Documented by: GATITO Vancomycin HCl/Dextrose (Vancomycin) 1,500 mg in 300 mls @ 200 mls/hr IV NOW ONE Stop: 02/17/19 23:35 Last Infusion: 02/18/19 00:25 Dose: 0 mls/hr Documented by: Admin: 02/17/19 22:53 Dose: 200 mls/hr Documented by: ZEN Vital Signs Vital signs: Vital Signs - 8 hr 02/17/19 21:04 Temperature 97.1 F L Pulse Rate 70 Respiratory Rate 18 Blood Pressure 170/90 H Pulse Oximetry 99 MDM - Skin/Abscess/Foreign Bdy Lab Data Attestation: I reviewed the patient's lab results. Result diagrams: 02/17/19 22:21 02/17/19 22:21 Labs: Lab Results 02/17/19 02/17/19 02/17/19 Range/Units 22:21 22:21 22:33 WBC 6.5 (4.5-11.0) X10^3/uL RBC 3.83 L (4.0-5.2) X10^6/uL Hgb 11.3 L (12.0-16.0) g/dL Hct 34.5 L (36-46) % MCV 90.2 (80-100) fL MCH 29.6 (26-34) PG MCHC 32.8 (30-36) % RDW 14.6 (11.6-14.8) % Plt Count 204 (150-400) X10^3/uL Neut % (Auto) 61.2 (50-75) % Lymph % (Auto) 19.2 L (25-40) % Ashley % (Auto) 16.9 H (3-14) % Eos % (Auto) 1.7 L (2-4) % Baso % (Auto) 1.0 (0-2) % Neut # (Auto) 4000 (2888-4774) /uL Lymph # (Auto) 1200 (7951-4208) /uL Ashley # (Auto) 1100 H (0-900) /uL Eos # (Auto) 100 (0-450) /uL Baso # (Auto) 100 (0-100) /uL Sodium 140 (137-145) mmol/L Potassium 4.0 (3.4-5.1) mmol/L Chloride 107 (98-107) mmol/L Carbon Dioxide 28 (22-32) mmol/L BUN 17 (7-17) mg/dL Creatinine 0.50 L (0.52-1.04) mg/dL Estimated GFR > 60.0 (>60) mL/min BUN/Creatinine Ratio 34.0 H (6-22) Glucose 93 (80-110) mg/dL Lactate 0.9 (0.7-2.1) mmol/L Calcium 9.9 (8.4-10.2) mg/dL Imaging Data foot xray: My impression: patient has changes to the toe consistent with hammer toe/chronic deformity. no osteomyelitis noted. MDM Narrative Medical decision making narrative: Patient has appears to be infection in her foot with progressive cellulitis, unclear if she has an osteomyelitis there is no clear changes on x-ray, lab work not show any major abnormalities. Spoke with Jefferson MONTIEL, accepts but would like for us to consult with Orthopedic surgery for any additional recommendations. Patient has received a dose of Vancomycin. Spoke with Dr. murcia he would recommend broad-spectrum antibiotics. He would recommend MRI potentially for imaging for evaluation for osteomyelitis of some strong suspicion. He will see the patient in the morning. Updated hospitalist on recommendations. Discharge Plan Departure Patient Disposition: Admitted As Inpatient Clinical Impression: Open wnd foot-complicated, Cellulitis Admit Date/Time: 02/17/19 23:40 Admit Provider: Kaley Paulino
--- NOTE | 2019-02-17 22:05 | DI.RAD.S_ITS ---
PROCEDURE: XR FOOT LT MIN 3V INDICATIONS: infection, ball of foot into 2/3/4 toe region TECHNIQUE: 3 views of the foot were acquired. COMPARISON: None. FINDINGS: Bones: No fractures or dislocations. No suspicious bony lesions. Flexion deformities of the lesser toes as well as medial subluxation of the MTP joints most pronounced involving the second and third toe. Diffuse midfoot joint degeneration. No definite focal osseous destruction although flexion deformities limits evaluation Soft tissues: No tibiotalar joint effusion. Achilles tendon appears normal. Possible soft tissue gas projecting in the plantar forefoot. IMPRESSION: No focal osseous destruction to suggest advanced osteomyelitis. If there is persistent clinical concern, continued short interval radiographic followup or contrast enhanced MRI could be performed to assess for early infection. Possible soft tissue gas projecting in the plantar forefoot. Diffuse midfoot joint degeneration raising possibility of neuropathic arthropathy. Flexion deformities of the lesser toes. Dictated by: Johnny Paulino M.D. on 02/18/2019 at 9:07 Approved by: Johnny Paulino M.D. on 02/18/2019 at 9:10
[2019-02-17 22:35] LABS: Add Manual Diff / Slide Review NO; Basophils Absolute Auto 100 /uL (0-100); Eosinophils Absolute Auto 100 /uL (0-450); Eosinophils Percent Auto 1.7 % (2-4); Hematocrit 34.5 % (36-46); Hemoglobin 11.3 g/dL (12.0-16.0); Lymphocytes Absolute Auto 1200 /uL (1100-4500); Lymphocytes Percent Auto 19.2 % (25-40); Mean Corpuscular HGB Conc 32.8 % (30-36); Mean Corpuscular Hemoglobin 29.6 PG (26-34); Mean Corpuscular Volume 90.2 fL (80-100); Monocytes Absolute Auto 1100 /uL (0-900); Monocytes Percent Auto 16.9 % (3-14); Neutrophils Absolute Auto 4000 /uL (1500-7000); Neutrophils Percent Auto 61.2 % (50-75); Platelet Count 204 X10^3/uL (150-400); Red Blood Cell Count 3.83 X10^6/uL (4.0-5.2); Red Cell Distribution Width 14.6 % (11.6-14.8); White Blood Cell Count 6.5 X10^3/uL (4.5-11.0)
[2019-02-17 22:41] LABS: Blood Urea Nitrogen 17 mg/dL (7-17); Calcium 9.9 mg/dL (8.4-10.2); Carbon Dioxide 28 mmol/L (22-32); Chloride 107 mmol/L (98-107); Estimated Glomerular Filt Rate > 60.0 mL/min (>60); Glucose 93 mg/dL (80-110); HEMOLYSIS < 15 (0-50); Sodium 140 mmol/L (137-145)
[2019-02-17] MEDS: VANCOMYCIN 1,500 MG/300 ML FROZ.PIGGY 200 MG IV (22:53)
[2019-02-17 22:55] LABS: Lactate (Lactic Acid) 0.9 mmol/L (0.7-2.1)
[2019-02-17 23:47] VITALS: BP 148/78; PULSE 67; RESP 14; TEMP 36.3; O2SAT 96
[2019-02-17] MEDS: TET,DIPH,PERTUSS(ACELL),VAC/PF 0.5 ML SYRINGE IM (23:54)
[2019-02-18] VITALS (17 sets, daily range): BP systolic 90–151; BP diastolic 53–93; PULSE 59–75; RESP 12–18; TEMP 36.3–36.7; O2SAT 94–98; BMI 19.3
--- NOTE | 2019-02-18 00:36 | P.HP_ITS ---
History of Present Illness History of Present Illness Date Patient Seen: 02/17/19 Time Patient Seen: 23:00 Chief complaint: LEFT FOOT INFECTION Narrative: Roxana Villagran is pleasant 84-year-old female with a limited medical history and was in her usual state of health when she developed pain and swelling at the bottom of her left foot. She saw her PCP on [facility] and was directed to present to the Emergency Department. 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 Patient states she has had a ?corn? for approximately 3 years, then it callused over. She also has had long standing hammer toe where the callous is located. She denies fever, sweats though does endorse chills, denies shortness of breath, nausea or vomiting, dysuria, diarrhea or constipation. She states a prior history of sterile abcesses. Patient History Medical History (Updated 02/18/19 @ 01:08 by DINESH Powers) Breast cancer (Acute) Cellulitis (Acute) Surgical History (Updated 02/18/19 @ 00:58 by DINESH Powers) History of hip replacement (Acute) History of mastectomy (Acute) Hx of appendectomy (Acute) Total knee replacement status (Acute) Family & Social History Family History (Updated 02/18/19 @ 00:56 by DINESH Powers) Mother CVA (cerebral vascular accident) Father Renal failure Alcoholism Social History: household members spouse Tobacco & Substance use: Tobacco type cigarettes Smoking Status Former smoker alcohol intake frequency 0-2 drinks per day Substance Use Type does not use Meds Home Medications and Allergies Home Medications Medication Instructions Recorded Confirmed Type No Known Home Medications 10/03/18 10/03/18 History Allergies Allergy/AdvReac Type Severity Reaction Status Date / Time azithromycin Allergy Verified 10/03/18 00:28 Penicillins Allergy Verified 10/03/18 00:28 Review of Systems Review of Systems ROS Unobtainable: All systems reviewed & are unremarkable except as noted in HPI and below Exam Vital Signs (past 8 hours): - 02/17/19 21:04 02/17/19 23:47 Temperature 97.1 F L 97.4 F L Pulse Rate 70 67 Respiratory Rate 18 14 Blood Pressure 170/90 H Blood Pressure [Left Arm] 148/78 H Pulse Oximetry 99 96 Oxygen Delivery Method Room Air Narrative Exam Narrative: Gen: Alert, oriented, well-developed 84 y.o. female, HEENT: normocephalic, atraumatic, conjunctiva clear, sclera non-icteric, oral mucosa pink and moist Neck: supple, full ROM Resp: Lungs CTA, non-labored breathing CV: RRR, no murmur or rubs Abd: well healing surgical scar left lower abdomen, soft, non-tender, normoactive BTs Skin: no lesions or rashes, dry and intact Neuro: Alert and oriented X 4 w/no focal deficits Extremities: Has an ulcerated and indurated area with streaking (marked) on the plantar surface of her left foot, is ambulatory, negative Kash?s sign Psyche: normal mood and affect. Objective Labs Result Diagrams: 02/17/19 22:21 02/17/19 22:21 Labs: Laboratory Results - last 24 hr 02/17/19 02/17/19 02/17/19 22:21 22:21 22:33 WBC 6.5 RBC 3.83 L Hgb 11.3 L Hct 34.5 L MCV 90.2 MCH 29.6 MCHC 32.8 RDW 14.6 Plt Count 204 Neut % (Auto) 61.2 Lymph % (Auto) 19.2 L Bull[place] % (Auto) 16.9 H Eos % (Auto) 1.7 L Baso % (Auto) 1.0 Neut # (Auto) 4000 Lymph # (Auto) 1200 [place] # (Auto) 1100 H Eos # (Auto) 100 Baso # (Auto) 100 Sodium 140 Potassium 4.0 Chloride 107 Carbon Dioxide 28 BUN 17 Creatinine 0.50 L Estimated GFR > 60.0 BUN/Creatinine Ratio 34.0 H Glucose 93 Lactate 0.9 Calcium 9.9 Assessment & Plan Assessment & Plan narrative: Roxana Villagran is a pleasant 84 y.o. female with a minimal medical history, but a recent inguinal hernia surgical repair will be admitted for a cellulitis of the plantar surface of her left foot. 1. Cellulitis and abscess of the left foot, acute and present on admission * She is initiated on IV vanco 1500 mg in the ED. * Will request dosing by Pharmacy * Dr. Cohen, Orthopedic Surgery has been notified and appreciate consultation. * Will order MRI to r/o osteomylitis, she needs to be screened for hardware * She may require ID involvement in the case she has osteomylitis requiring a long antibiotic course Patient is admitted inpatient as her stay is anticipated to exceed 2 midnights. FEN: IV saline lock, regular diet, chemistries in the am. VTE Prophylaxis: Enoxaparin 40 mg subQ daily Disposition: unknown at this time. Code status: Full Code Admission time: 45 minutes Meds reconciled: not applicable, patient does not take any medications. Quality VTE Deep Vein Thrombosis/Pulmonary Embolism Present on Admission: No
[2019-02-18] MEDS: CIPROFLOXACIN 400 MG/200 ML PIGGYBACK 200 MG IV (01:33)
[2019-02-18] MEDS: ACETAMINOPHEN 325 MG TABLET 650 MG PO (01:33)
--- NOTE | 2019-02-18 02:16 | PC.NURSE ---
Patient arrived to the acute care floor around 0110. She is alert and oriented and complains of discomfort in the left hip. Patient is on room air and is resting comfortably in bed. Her left foot has a blister-like wound on the dorsal side. The wound is shiny, taut and filled with a serous/purulent drainage. The surrounding tissue on the left foot is red, swollen/edematous and warm. Pictures taken and wound documented in the chart.
[2019-02-18] MEDS: PANTOPRAZOLE 20 MG TABLET 40 MG PO (05:04)
[2019-02-18 07:03] LABS: Add Manual Diff / Slide Review NO; Basophils Absolute Auto 0 /uL (0-100); Basophils Percent Auto 0.9 % (0-2); Eosinophils Absolute Auto 100 /uL (0-450); Lymphocytes Absolute Auto 1000 /uL (1100-4500); Lymphocytes Percent Auto 17.9 % (25-40); Mean Corpuscular HGB Conc 33.4 % (30-36); Mean Corpuscular Hemoglobin 29.8 PG (26-34); Mean Corpuscular Volume 89.4 fL (80-100); Monocytes Absolute Auto 1100 /uL (0-900); Neutrophils Absolute Auto 3100 /uL (1500-7000); Neutrophils Percent Auto 59.2 % (50-75); Platelet Count 187 X10^3/uL (150-400); Red Blood Cell Count 3.69 X10^6/uL (4.0-5.2); Red Cell Distribution Width 14.6 % (11.6-14.8); White Blood Cell Count 5.3 X10^3/uL (4.5-11.0)
[2019-02-18 07:14] LABS: Blood Urea Nitrogen 15 mg/dL (7-17); Calcium 9.4 mg/dL (8.4-10.2); Carbon Dioxide 25 mmol/L (22-32); Chloride 108 mmol/L (98-107); Estimated Glomerular Filt Rate > 60.0 mL/min (>60); Glucose 84 mg/dL (80-110); HEMOLYSIS 18 (0-50); Potassium 4.1 mmol/L (3.4-5.1); Sodium 140 mmol/L (137-145)
--- NOTE | 2019-02-18 07:21 | P.CONS_ITS ---
History of Present Illness Consult details Date Patient Seen: 02/18/19 Time Patient Seen: 07:22 Chief complaint: LEFT FOOT INFECTION Reason for consult: L foot infection Requesting provider: Kaley Paulino Narrative: 84-year-old female with a left foot infection. About 3 days ago she noticed swelling and drainage from her foot. She had a longstanding corn on the bottom of the foot that recently just opened up and started swelling and draining with some pain. Came into the emergency room yesterday as this was increasing. She denies any fevers or chills. No recent infections. Not hurting anywhere else. She denies diabetes. She does have significant hammertoes and foot deformity on this side. She recently had a hernia repair. She also needs to have her left hip replacement revised. [facility] Medical History Breast cancer (Acute) Cellulitis (Acute) Surgical History History of hip replacement (Acute) History of mastectomy (Acute) Hx of appendectomy (Acute) Total knee replacement status (Acute) Family History Mother CVA (cerebral vascular accident) Father Renal failure Alcoholism Social History household members: spouse Smoking Status: Former smoker Meds Home Medications and Allergies Home Medications Medication Instructions Recorded Confirmed Type No Known Home Medications 10/03/18 02/18/19 History Allergies Allergy/AdvReac Type Severity Reaction Status Date / Time azithromycin Allergy Verified 10/03/18 00:28 Penicillins Allergy Verified 10/03/18 00:28 Review of Systems Constitutional Constitutional: Denies chills and Denies fever(s) Cardiovascular Cardiovascular: Denies chest pain Respiratory Respiratory: Denies cough and Denies wheezing Gastrointestinal Gastrointestinal: Denies abdominal pain Neurologic Neurologic: Denies confusion Psychiatric Psychiatric: Denies confusion Endocrine Endocrine: Denies change in body appearance Hematologic/Lymphatic Hematologic/Lymphatic: Denies easy bleeding Allergic/Immunologic Allergic/Immunologic: Denies wheezing Exam Vital Signs (past 8 hours): - 02/17/19 23:47 02/18/19 01:10 02/18/19 05:00 Temperature 97.4 F L 98.1 F 97.9 F Pulse Rate 67 72 68 Respiratory Rate 14 18 18 Blood Pressure 135/72 138/71 Blood Pressure [Left Arm] 148/78 H Pulse Oximetry 96 97 96 Oxygen Delivery Method Room Air Oxygen Flow Rate 0 Const Orientation: alert and oriented x3 Resp Auscultation: clear to auscultation bilaterally Cardio Rate: regular rate Rhythm: regular rhythm Extrem Other: Left foot -mild dorsal swelling. Hammertoe deformities. Callus over the plantar 2nd metatarsal head. Raised blister approximately 5 cm in diameter going up underneath the 2nd toe hammertoe with drainage, erythema. Erythema along the arch. Limited motion of toes due to deformity. Intact sensation through toes. Objective Labs Result Diagrams: 02/18/19 06:54 02/18/19 06:54 Labs: Laboratory Results - last 24 hr 02/17/19 02/17/19 02/17/19 22:21 22:21 22:33 WBC 6.5 RBC 3.83 L Hgb 11.3 L Hct 34.5 L MCV 90.2 MCH 29.6 MCHC 32.8 RDW 14.6 Plt Count 204 Neut % (Auto) 61.2 Lymph % (Auto) 19.2 L T[place] % (Auto) 16.9 H Eos % (Auto) 1.7 L Baso % (Auto) 1.0 Neut # (Auto) 4000 Lymph # (Auto) 1200 [place] # (Auto) 1100 H Eos # (Auto) 100 Baso # (Auto) 100 Sodium 140 Potassium 4.0 Chloride 107 Carbon Dioxide 28 BUN 17 Creatinine 0.50 L Estimated GFR > 60.0 BUN/Creatinine Ratio 34.0 H Glucose 93 Lactate 0.9 Calcium 9.9 02/18/19 02/18/19 06:54 06:54 WBC 5.3 RBC 3.69 L Hgb 11.0 L Hct 33.0 L MCV 89.4 MCH 29.8 MCHC 33.4 RDW 14.6 Plt Count 187 Neut % (Auto) 59.2 Lymph % (Auto) 17.9 L [place] % (Auto) 20.0 H Eos % (Auto) 2.0 Baso % (Auto) 0.9 Neut # (Auto) 3100 Lymph # (Auto) 1000 L [place] # (Auto) 1100 H Eos # (Auto) 100 Baso # (Auto) 0 Sodium 140 Potassium 4.1 Chloride 108 H Carbon Dioxide 25 BUN 15 Creatinine 0.50 L Estimated GFR > 60.0 BUN/Creatinine Ratio 30.0 H Glucose 84 Lactate Calcium 9.4 Assessment & Plan Assessment & Plan narrative: Left foot infection. I think that this is going to require operative debridement. She is set up for MRI this morning which show a the extent of the infection and provide surgical planning but plan is to take her to the operating room this afternoon. I will check back with her after the MRI.
--- NOTE | 2019-02-18 07:29 | DI.MRI.S_ITS ---
PROCEDURE: MR FOOT LT WO/W CON INDICATIONS: L foot infection TECHNIQUE: Noncontrast coronal T1 spin echo and STIR, sagittal T1 spin echo with fat saturation and STIR, axial T1 spin echo and T2 fast spin echo with fat saturation. After the administration of contrast, axial/sagittal/coronal T1 spin echo with fat saturation through the left foot. COMPARISON: [facility], CR, XR FOOT LT MIN 3V, 02/17/2019, 22:19. FINDINGS: Image quality: Motion degraded study. Bones: No fracture identified. There is marrow signal change involving the fifth metatarsal head with loss of the normal fat signal intensity on T1-weighted images and questionable enhancement along the cortex raising the possibility of osteomyelitis, although this could represent chronic erosion given the relative paucity of enhancement. There is soft tissue edema adjacent to the fifth metatarsal. Fourth and fifth tarsal metatarsal joint degeneration. Presumed nonenhancing cyst present within the proximal phalanx of the great toe. Soft tissues: Dorsal subcutaneous edema. At the plantar subcutaneous soft tissues of the level of the second/third metatarsal head, there is suggestion of peripheral rim enhancement however no definite internal fluid signal intensity image 14 series 13, to suggest abscess. This could represent developing abscess or phlegmon. This measures approximately 8mm. There is similar enhancement pattern present at the plantar subcutaneous soft tissues at the level of the first metatarsal head. No soft tissue masses are visualized. The scanned muscles demonstrate normal overall bulk and internal signal. Subcutaneous tissues appear normal as well. No abnormal soft tissue enhancement. IMPRESSION: Prominent soft tissue rim enhancement pattern at the base of the first metatarsal head, and the second/third metatarsal heads, involving the subcutaneous soft tissue raising the possibility of phlegmon versus developing abscess. However, no definite internal fluid signal intensity. Marrow signal changes at the fifth metatarsal head raises possibility of chronic erosion although early osteomyelitis cannot be entirely excluded. Please correlate to clinical exam findings Second and third toe marrow signal intensity, as well as the remaining marrow signal intensity grossly unremarkable. Diffuse dorsal subcutaneous edema. Dictated by: Johnny Paulino M.D. on 02/18/2019 at 12:54 Approved by: Johnny Paulino M.D. on 02/18/2019 at 13:14
[2019-02-18 08:37] LABS: C-Reactive Protein Quant 1.7 mg/dL (<1.0)
[2019-02-18 08:49] LABS: Erythrocyte Sedimentation Rate 29 MM/HR (0-20)
[2019-02-18] MEDS: CEFEPIME 2 GM in SODIUM CHLORIDE 0.9% 100 ML 200 ML IV (08:54)
[2019-02-18] MEDS: ENOXAPARIN 40 MG/0.4 ML SYRINGE SUBCUT (08:54)
--- NOTE | 2019-02-18 10:20 | PC.NURSE ---
Day shift: Pt very pleasant this AM. Pictures of foot in chart. Pt does c/o mild left hip pain after using the BSC. Pt NPO at this time. Ice pack provided. Daughter in room for support. MRI today at 1030 then I&D later on today. Call light in reach. Bed alarm on.
--- NOTE | 2019-02-18 11:02 | PC.NURSE ---
Day shift: Pt off unit for MRI. Placed ABD dressing on affected foot and wrapped looses with sterile gauze per request of service technician. Wound needed to be covered. Pt tolerated well. Will remove this temporary dressing when Pt returns.
--- NOTE | 2019-02-18 11:48 | PC.NURSE ---
Day shift: Pt returns to AC unit.
[2019-02-18] MEDS: VANCOMYCIN 750 MG/150 ML FROZ.PIGGY 100 MG IV ×2 (12:03→22:55)
--- NOTE | 2019-02-18 12:22 | CM.DANOTE ---
DCP: Case received, EMR reviewed and met with patient. Daughter, Edwar, also in room. Introduced self and role. Was able to obtain baseline health and activity information from patient. DCP assessment/template completed with information currently available. Patient is an 84 year old female who admitted yesterday evening to the care of the hospitalist team. PCP: Dr. Tovar. Payer: confirmed: Medicare/[employer]. Patient came to the hospital via private vehicle secondary to some concern of infection on her left foot. Patient had a callus on her left foot, and is now diagnosed with cellulitis. She is scheduled for surgical debridement to her foot. Checked in with patient and daughter, Edwar, at bedside. They both reside on [facility]. Patient lives alone, but is independent, has a walker. Daughter is planning on staying with patient. Had brief conversation regarding skilled rehab if needed, depending on how she does after surgery, and if she needs prolonged ABO therapy. Patient stated, will take one step at a time. Mentioned home health nursing if she needs any wound care at home. P: DCP to continue to follow, and be available for any resources that she may need at discharge. Diamond Trinidad, ZACK/Calender Roll Operator
[2019-02-18] MEDS: KETOROLAC 15 MG/ML VIAL IV ×2 (12:29→21:37)
--- NOTE | 2019-02-18 16:06 | PM.PN.1 ---
Subjective Subjective Date Patient Seen: 02/18/19 Time Patient Seen: 12:15 Interval history: Roxana Villagran is an 84-year-old female seen today for follow-up of a left toe infection. She reports no pain, no fevers, chills, nausea, vomiting. She was evaluated by orthopedic surgery this morning, will obtain an MRI of her left foot which showed a possible developing abscess and some bony changes that could potentially be consistent with osteomyelitis. She is NPO at this time pending operative debridement with Orthopedic surgery later this afternoon. I broadened her antibiotics to cefepime and vancomycin at this time. She had a culture sent from the emergency room which is growing gram-negative bacilli, and she should have cultures from the operative debridement as well. Exam Vital Signs (past 8 hours): - 02/18/19 08:07 02/18/19 08:17 02/18/19 11:31 Temperature 97.5 F L 97.6 F Pulse Rate 60 68 Respiratory Rate 16 15 Blood Pressure 147/78 H 143/83 H Pulse Oximetry 95 95 02/18/19 15:58 Temperature 97.9 F Pulse Rate 62 Respiratory Rate 16 Blood Pressure 116/75 Pulse Oximetry 95 Oxygen Delivery Method Room Air Oxygen Flow Rate 0 Narrative Exam Narrative: GENERAL APPEARANCE: Well developed, well nourished, in no acute distress. SKIN: Patient has foot deformities as noted below, however rest of skin exam is without erythema, ulcerations, or rashes. HEENT: The sclerae were anicteric and conjunctivae were pink and moist. Extraocular movements were intact and pupils were equal, round with normal accommodation. External inspection of the ears and nose showed no scars, lesions, or masses. Lips, teeth, and gums showed normal mucosa. The oral mucosa, hard and soft palate, tongue and posterior pharynx were unremarkable. NECK: Supple and symmetric. There was no thyroid enlargement, and no tenderness, or masses were felt. CHEST: Normal AP diameter and normal contour without any kyphoscoliosis. LUNGS: Auscultation of the lungs revealed no wheezes, rhonchi, or rales. CARDIOVASCULAR: There was a regular rate and rhythm without any murmurs, gallops, rubs. Peripheral pulses were 2+ and symmetric. ABDOMEN: Soft and nontender with normal bowel sounds. No ascites was noted. MUSCULOSKELETAL: There was no tenderness or effusions noted. Muscle strength and tone were normal. EXTREMITIES: Left foot dorsal swelling with what appears to be period went drainage underneath, this extends from approximately her 3rd toe to the medial aspect of her foot 1st toe on the left. There is surrounding erythema in her arch but does not proceed past this. Patient was able to move her left foot significantly more upon my examination. NEUROLOGIC: Alert and oriented x 3. Normal affect. Gait was normal. Strength is +5/5 in the Upper Extremities and Lower Extremities Bilaterally. Sensation to touch was normal. Objective Labs Result Diagrams: 02/18/19 06:54 02/18/19 06:54 Labs: Laboratory Results - last 24 hr 02/17/19 02/17/19 02/17/19 22:21 22:21 22:33 WBC 6.5 RBC 3.83 L Hgb 11.3 L Hct 34.5 L MCV 90.2 MCH 29.6 MCHC 32.8 RDW 14.6 Plt Count 204 Neut % (Auto) 61.2 Lymph % (Auto) 19.2 L [place] % (Auto) 16.9 H Eos % (Auto) 1.7 L Baso % (Auto) 1.0 Neut # (Auto) 4000 Lymph # (Auto) 1200 [place] # (Auto) 1100 H Eos # (Auto) 100 Baso # (Auto) 100 ESR Sodium 140 Potassium 4.0 Chloride 107 Carbon Dioxide 28 BUN 17 Creatinine 0.50 L Estimated GFR > 60.0 BUN/Creatinine Ratio 34.0 H Glucose 93 Lactate 0.9 Calcium 9.9 C-Reactive Protein 02/18/19 02/18/19 02/18/19 06:54 06:54 06:54 WBC 5.3 RBC 3.69 L Hgb 11.0 L Hct 33.0 L MCV 89.4 MCH 29.8 MCHC 33.4 RDW 14.6 Plt Count 187 Neut % (Auto) 59.2 Lymph % (Auto) 17.9 L [place] % (Auto) 20.0 H Eos % (Auto) 2.0 Baso % (Auto) 0.9 Neut # (Auto) 3100 Lymph # (Auto) 1000 L [place] # (Auto) 1100 H Eos # (Auto) 100 Baso # (Auto) 0 ESR 29 H Sodium 140 Potassium 4.1 Chloride 108 H Carbon Dioxide 25 BUN 15 Creatinine 0.50 L Estimated GFR > 60.0 BUN/Creatinine Ratio 30.0 H Glucose 84 Lactate Calcium 9.4 C-Reactive Protein 02/18/19 06:54 WBC RBC Hgb Hct MCV MCH MCHC RDW Plt Count Neut % (Auto) Lymph % (Auto) [place] % (Auto) Eos % (Auto) Baso % (Auto) Neut # (Auto) Lymph # (Auto) [place] # (Auto) Eos # (Auto) Baso # (Auto) ESR Sodium Potassium Chloride Carbon Dioxide BUN Creatinine Estimated GFR BUN/Creatinine Ratio Glucose Lactate Calcium C-Reactive Protein 1.7 H Assessment & Plan Assessment & Plan narrative: Roxana Villagran is a pleasant 84 y.o. female with a minimal medical history, but a recent inguinal hernia surgical repair will be admitted for a left foot abscess and surrounding cellulitis. 1. Cellulitis and abscess of the left foot, acute and present on admission She is initiated on IV vanco 1500 mg in the ED, added cefepime for broader coverage. Will await final cultures but current results are gram-negative bacilli from the wound culture in the ED. Will request dosing by Pharmacy for vancomycin Dr. Cohen, Orthopedic Surgery plans for operative debridement this afternoon, appreciate assistance with management. MRI was indeterminate regarding possible osteomyelitis, but did show possible developing abscess. will wait for operative evaluation at this time to determine appropriate course of antibiotic therapy. She may require ID involvement in the case she has osteomylitis requiring a long antibiotic course. 2. Elevated Glucose -patient had a glucose of 159 on initial BMP, and with corresponding left foot abscess will order A1c to see if there is underlying diabetes contributing to her infection. - follow up A1c Code: Full Dispo: remains inpatient, will obtain PT evaluation following operative interventions, may need prolonged antitbiotic therapy. Quality VTE Deep Vein Thrombosis/Pulmonary Embolism Present on Admission: No
[2019-02-18] MEDS: LACTATED RINGERS 1,000 ML 42 ML IV (16:48)
--- NOTE | 2019-02-18 18:03 | PM.PREOP ---
Pre-operative Note Interval Note History & Physical reviewed/Exam performed by Physician: Yes Changes to H&P: No H&P completed within 30 days and has changed as indicated here:: small early abscess collection 1.3cm. No osteomyelitis
--- NOTE | 2019-02-18 18:08 | PM.OP.1 ---
Operative Date/Time/Diagnoses Date of procedure: 02/18/19 Time of procedure: 19:05 Pre-op diagnosis: Left foot abscess Post-op diagnosis: same Procedure & Clinicians Procedure: Incisional Irrigation and debridement of left foot abscess in the deep tissue Same procedure as scheduled: Yes Indications: A 4-year-old female with a infection in the plantar aspect of her left foot. It was felt that she would benefit from surgical debridement. Risks and benefits of surgery discussed including not limited to medical risks with heart attack, stroke, DVT, PE, , ongoing infection, wound closure problems, failure to alleviate symptoms and need for further surgery. All questions were answered and appropriate consent obtained. Surgeon: Brennan Cohen Click Yes if Unassisted: Yes Anesthesia Type: General Operative Notes Findings: none Closure Type: primary Specimen(s): other (culture) Estimated Blood Loss (mL): 10 Procedure in detail: Patient brought to the operating room and intubated on the table. Attention was turned towards the well marked left foot. Time-out was performed. Preoperative antibiotics and our be being given for her routine hospital antibiotics. The left leg was prepped and draped in the standard sterile fashion. I used a scalpel to incise the blister over the plantar aspect of her dorsal middle foot and thick purulent material was released from this. This was swabbed and sent to microbiology. Once this area was cleaned out I excised the callus over the 2nd metatarsal head. This was tracking deeper. I opened this up with a 8 mm incision and small amount of purulent material was released. This corresponded to the area on the MRI that looked infected. I used a curette to debride this area. This actually tracked deep through the soft tissue for approximately 1 cm in a concentric [place]. This was all debrided and then copiously irrigated. This completed the incisional debridement of her deep foot abscess. A suture was placed to loosely reapproximate the incision over the metatarsal head. Sterile dressing was placed. She was then extubated brought to recovery with no complications. Complications: none Post-operative Condition: stable Disposition: PACU Plan for aftercare: Inpatient with IV antibiotics for a few more days. Weight bear as tolerated on the heel but stay off the ball of the foot.
[2019-02-18] MEDS: LACTATED RINGERS 1,000 ML 125 ML IV (20:45)
[2019-02-18] MEDS: DOCUSATE 100 MG CAPSULE PO (21:37)
--- NOTE | 2019-02-19 00:40 | PC.NURSE ---
[employer] Note: 0015: Awake, resting in bed. Daughter at bedside. Pt alert, oriented X3. Lt leg elevated on pillow; dressing to lt foot cdi. Lt toes pink and warm, and pt states she has normal sensation. She states that the Toradol took the pain away.
[2019-02-19] MEDS: PANTOPRAZOLE 20 MG TABLET 40 MG PO (06:37)
[2019-02-19] MEDS: CEFEPIME 2 GM in SODIUM CHLORIDE 0.9% 100 ML 200 ML IV (06:37)
[2019-02-19] MEDS: KETOROLAC 15 MG/ML VIAL IV (06:38)
[2019-02-19 07:16] LABS: Add Manual Diff / Slide Review NO; Basophils Absolute Auto 100 /uL (0-100); Eosinophils Absolute Auto 100 /uL (0-450); Eosinophils Percent Auto 2.4 % (2-4); Hematocrit 32.5 % (36-46); Hemoglobin 10.9 g/dL (12.0-16.0); Lymphocytes Absolute Auto 1100 /uL (1100-4500); Mean Corpuscular HGB Conc 33.4 % (30-36); Mean Corpuscular Volume 89.9 fL (80-100); Monocytes Absolute Auto 1000 /uL (0-900); Monocytes Percent Auto 17.1 % (3-14); Neutrophils Absolute Auto 3500 /uL (1500-7000); Neutrophils Percent Auto 60.5 % (50-75); Platelet Count 194 X10^3/uL (150-400); Red Blood Cell Count 3.62 X10^6/uL (4.0-5.2); Red Cell Distribution Width 14.8 % (11.6-14.8); White Blood Cell Count 5.8 X10^3/uL (4.5-11.0)
[2019-02-19 07:36] LABS: Blood Urea Nitrogen 18 mg/dL (7-17); Calcium 9.2 mg/dL (8.4-10.2); Carbon Dioxide 25 mmol/L (22-32); Chloride 106 mmol/L (98-107); Estimated Glomerular Filt Rate > 60.0 mL/min (>60); Glucose 91 mg/dL (80-110); HEMOLYSIS < 15 (0-50); Sodium 138 mmol/L (137-145)
[2019-02-19 07:37] LABS: Hemoglobin A1C% w Est Avg Glu 5.3 % (4.0-6.0)
[2019-02-19 07:40] VITALS: BP 137/77; PULSE 62; RESP 14; TEMP 36.6; O2SAT 95
--- NOTE | 2019-02-19 08:02 | PM.PNPO.1 ---
Subjective Subjective Date Patient Seen: 02/19/19 Time Patient Seen: 08:02 Interval history: She is doing well. Not too much discomfort. Exam Vital Signs (past 8 hours): Oxygen Delivery Method Room Air Oxygen Flow Rate 0 Const Orientation: alert and oriented x3 Extrem Other: Left foot dressing clean dry intact. Wiggles toes. Good capillary refill. Objective Labs Result Diagrams: 02/19/19 06:56 02/19/19 06:56 Labs: Laboratory Results - last 24 hr 02/18/19 02/18/19 02/19/19 06:54 06:54 06:56 WBC 5.8 RBC 3.62 L Hgb 10.9 L Hct 32.5 L MCV 89.9 MCH 30.0 MCHC 33.4 RDW 14.8 Plt Count 194 Neut % (Auto) 60.5 Lymph % (Auto) 19.0 L [place] % (Auto) 17.1 H Eos % (Auto) 2.4 Baso % (Auto) 1.0 Neut # (Auto) 3500 Lymph # (Auto) 1100 [place] # (Auto) 1000 H Eos # (Auto) 100 Baso # (Auto) 100 ESR 29 H Sodium Potassium Chloride Carbon Dioxide BUN Creatinine Estimated GFR BUN/Creatinine Ratio Glucose Hemoglobin A1c Calcium Magnesium C-Reactive Protein 1.7 H 02/19/19 02/19/19 06:56 06:56 WBC RBC Hgb Hct MCV MCH MCHC RDW Plt Count Neut % (Auto) Lymph % (Auto) [place] % (Auto) Eos % (Auto) Baso % (Auto) Neut # (Auto) Lymph # (Auto) [place] # (Auto) Eos # (Auto) Baso # (Auto) ESR Sodium 138 Potassium 4.0 Chloride 106 Carbon Dioxide 25 BUN 18 H Creatinine 0.60 Estimated GFR > 60.0 BUN/Creatinine Ratio 30.0 H Glucose 91 Hemoglobin A1c 5.3 Calcium 9.2 Magnesium 2.0 C-Reactive Protein Assessment & Plan Post-op Postoperative Procedures: Procedures Operation Date: 02/18/19 17:30 Actual Procedures Side Surgeon p I&D foot Left Brennan Cohen MD her ER cultures are showing gram-negative bacilli. Her Gram stain from surgery yesterday had gram-positive cocci and gram-negative rods. Continue on IV antibiotics for a few more days. Awaiting final culture results. There is no evidence of osteomyelitis in the infected region of her foot under the 2nd metatarsal head. There was a small cortical reaction on the 5th metatarsal head, 5th far away from the 2nd metatarsal infected region with no sign of any infection there, very doubtful for osteomyelitis. Quality VTE Deep Vein Thrombosis/Pulmonary Embolism Present on Admission: No
[2019-02-19] MEDS: DOCUSATE 100 MG CAPSULE PO ×2 (08:55→20:45)
[2019-02-19] MEDS: ENOXAPARIN 40 MG/0.4 ML SYRINGE SUBCUT (08:55)
--- NOTE | 2019-02-19 10:53 | PM.PN.1 ---
Subjective Subjective Date Patient Seen: 02/19/19 Time Patient Seen: 10:15 Interval history: Roxana Villagran is an 84-year-old female seen today for follow-up of a left toe infection. She feels well at this time. She reports no pain, no fevers, chills, nausea, vomiting. She underwent operative debridement yesterday, and Dr. Cohen feels that there is a low likelihood of osteomyelitis based on his operative findings, especially over the area of the abscess. Gram stain is showing gram-positive cocci and gram-negative rods. Wound cultures from the ED are growing 3 types of gram-negative rods, currently pending speciation and sensitivities. She remains on cefepime and vancomycin, she remain on these pending operative cultures given that that Gram stain is showing gram-positive cocci. Exam Vital Signs (past 8 hours): - 02/19/19 07:40 Temperature 97.9 F Pulse Rate 62 Respiratory Rate 14 Blood Pressure 137/77 Pulse Oximetry 95 Oxygen Delivery Method Room Air Oxygen Flow Rate 0 Narrative Exam Narrative: GENERAL APPEARANCE: Well developed, well nourished, in no acute distress. SKIN: Patient has foot deformities as noted below, however rest of skin exam is without erythema, ulcerations, or rashes. HEENT: The sclerae were anicteric and conjunctivae were pink and moist. Extraocular movements were intact and pupils were equal, round with normal accommodation. External inspection of the ears and nose showed no scars, lesions, or masses. Lips, teeth, and gums showed normal mucosa. The oral mucosa, hard and soft palate, tongue and posterior pharynx were unremarkable. NECK: Supple and symmetric. There was no thyroid enlargement, and no tenderness, or masses were felt. CHEST: Normal AP diameter and normal contour without any kyphoscoliosis. LUNGS: Auscultation of the lungs revealed no wheezes, rhonchi, or rales. CARDIOVASCULAR: There was a regular rate and rhythm without any murmurs, gallops, rubs. Peripheral pulses were 2+ and symmetric. ABDOMEN: Soft and nontender with normal bowel sounds. No ascites was noted. MUSCULOSKELETAL: There was no tenderness or effusions noted. Muscle strength and tone were normal. EXTREMITIES: Left toe bandage is in place and clear dry and intact. She is able to move her toes well. NEUROLOGIC: Alert and oriented x 3. Normal affect. Strength is +5/5 in the Upper Extremities and Lower Extremities Bilaterally. Sensation to touch was normal. Objective Labs Result Diagrams: 02/19/19 06:56 02/19/19 06:56 Labs: Laboratory Results - last 24 hr 02/19/19 02/19/19 02/19/19 06:56 06:56 06:56 WBC 5.8 RBC 3.62 L Hgb 10.9 L Hct 32.5 L MCV 89.9 MCH 30.0 MCHC 33.4 RDW 14.8 Plt Count 194 Neut % (Auto) 60.5 Lymph % (Auto) 19.0 L [place] % (Auto) 17.1 H Eos % (Auto) 2.4 Baso % (Auto) 1.0 Neut # (Auto) 3500 Lymph # (Auto) 1100 [place] # (Auto) 1000 H Eos # (Auto) 100 Baso # (Auto) 100 Sodium 138 Potassium 4.0 Chloride 106 Carbon Dioxide 25 BUN 18 H Creatinine 0.60 Estimated GFR > 60.0 BUN/Creatinine Ratio 30.0 H Glucose 91 Hemoglobin A1c 5.3 Calcium 9.2 Magnesium 2.0 Assessment & Plan Assessment & Plan narrative: Roxana Villagran is a pleasant 84 y.o. female with a minimal medical history, but a recent inguinal hernia surgical repair admitted for a left foot abscess and surrounding cellulitis. 1. Cellulitis and abscess of the left foot, acute and present on admission, improved -She is initiated on IV vanco 1500 mg in the ED, added cefepime for broader coverage. Will await final cultures but current results are gram-negative bacilli from the wound culture in the ED and GNB with GPC -Will request dosing by Pharmacy for vancomycin -Dr. Cohen following with Orthopedic Surgery, appreciate assistance with management. She is POD #1 s/p operative debridement. MRI was indeterminate regarding possible osteomyelitis, but did show possible developing abscess. Dr. Watkins did not see evidence of osteomyelitis in the operating room, and feels that it is highly unlikely there is infection in her bone near her abscess. -will await final cultures and sensitivities before determining optimal length of antibiotics. 2. Elevated Glucose -patient had a glucose of 159 on initial BMP, and with corresponding left foot abscess ordered A1c which is 5.3. - no further mangement. Code: Full Dispo: remains inpatient, will obtain PT evaluation following operative interventions, will await final culture from the operating room before determining appropriate antibiotics. Quality VTE Deep Vein Thrombosis/Pulmonary Embolism Present on Admission: No
[2019-02-19 11:20] VITALS: BP 139/52; PULSE 59; RESP 14; TEMP 36.5; O2SAT 97
--- NOTE | 2019-02-19 11:37 | PT.IIE ---
Current Diagnoses Cellulitis of left lower limb (02/17/19) Surgery Performed Operation Date: 02/18/19 17:30 Actual Procedures p I&D foot(Left) - Brennan Cohen MD Surgical History (Last Reviewed 02/18/19 @ 07:25 by Brennan Cohen MD) History of hip replacement (Acute) History of mastectomy (Acute) Hx of appendectomy (Acute) Total knee replacement status (Acute) Medical History (Last Reviewed 02/18/19 @ 07:25 by Brennan Cohen MD) Breast cancer (Acute) Cellulitis (Acute) Physical Therapy Inpatient Evaluation/Re-Eval M1 PT/OT-IP Prior Functional Status Start: 02/19/19 08:11 Freq: NEEDED Status: Active Protocol: Document 02/19/19 11:11 (Rec: 02/19/19 11:37 [email or web address]) Medical Review Prior Functional Status Medical History Reviewed Yes Diet/Fluid Consistency Regular Communication No deficits noted. Able to make needs known Mobility and Gait Pt is independnent with 2 SPC/ FWW for home and community mobility. 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 Pt was still able to hop and mobilize around at home without assistance. Pt did have falls in the past. Activities of Daily Living and IADL's Independent for ADLs with FWW/ 2 SPC. 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 Pt is able to drive. Social History Household Members spouse,none Living Arrangements House Number of Floors (Floors) One Floor Number of Stairs To Enter/Railing? 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 6 out of 7 of her children live very close by and has many grand children. Pt stated she is very active and independent. She stated that she will stay with her dtr Renea's home after d/c. 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 Pt has hospital bed but does not use it as much. M2 PT-IP Current Condition Start: 02/19/19 08:11 Freq: NEEDED Status: Active Protocol: Document 02/19/19 11:11 HH (Rec: 02/19/19 11:37 [email or web address]) Physical Therapy Current Condition Current Condition Evaluation Date 02/19/19 Treatment Diagnosis I & D on L forefoot, difficulty in walking and balance. Onset Date 02/18/19 Weight Bearing Status Weight Bearing Status Non-Weight Bearing Allowed Weight Bearing Amount (enter % NWB at the ball of the foot. 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 Number of CAR RUNNER Visits 0 Physical Therapy Visit Comments Patient Comments I want to get up to use commode Patient Goals To return home with dtr Renea. Therapy Pain Assessment Pain Present Pain Present Denied Pain M4 PT-IP Mobility and Gait Start: 02/19/19 08:11 Freq: NEEDED Status: Active Protocol: Document 02/19/19 11:11 HH (Rec: 02/19/19 11:37 [email or web address]) PT-Bed Mobility Assessment Supine to Sit Supine to Sit Standby Assistance,Head of Bed Elevated Scooting Scooting to Edge of Bed Standby Assistance Scooting Up and Down in Bed Standby Assistance PT-Transfer Assessment Sit to and From Stand Sit to and from Stand Contact Guard Assistance,Use of Upper Extremities Equipment Transfer Assistive Device Gait Belt,Front Wheeled Walker Orthotic/Prosthetic Devices or Brace: No Transfers Transfer Destination Bed,Chair,Bedside Commode Transfer Technique lateral hop/ scoot Transfer Ability Level of Assist Contact Guard Assistance Comments Mobility Comments Pt was in bed upon assessment. Pt completed supine to sit on L side with CGA from elevated HOB. She then stood up with FWW and able to use lateral hop to BSC on her L side. She was also able to maintain balance unsupported/ with 1UE on walker while doing self care and brittney/doff brief. She then stood up again and amb with heel WB/ hopping up to hallway for a total of 30 feet . Pt appears to have very good UE strength and RLE strength for mobility. She appears safe and steady. She then returned to bedside chair and able to perform lateral scoot with turns and safely descend with proper hand placements on chair armrest and FWW. Call light within reach and chair alarm activated Gait Assessment Gait Gait Assistance Required: Contact Guard Assist Distance (Feet) 30 Able to Maintain Weight Bearing Status Yes During Gait Assistive Devices Assistive Device Gait Belt,Front Wheeled Walker Orthotic/Prosthetic Devices or Brace: No Gait Deviations General Gait Pattern Decreased Stride Length, Decreased Feet Clearance, Flexed Trunk,Step-to Gait Factors Limiting Gait Function Factors Limiting Gait Function Decreased Activity Tolerance, Decreased Strength,Limited Range of Motion,Pain,Poor Balance Comments Gait Comments see mobility comment Stair Climbing Assessment Comments Stair Climbing Comments unable to assess PT-Balance Assessment Sitting Balance and Reactions Static Sitting Balance Ability Normal Dynamic Sitting Balance Ability Normal Standing Balance and Reactions Static Standing Balance Ability Normal Dynamic Standing Balance Ability Good Device Used FWW M5 PT-IP Objective Assessments Start: 02/19/19 08:11 Freq: NEEDED Status: Active Protocol: Document 02/19/19 11:11 (Rec: 02/19/19 11:37 [email or web address]) Orientation Orientation/Cognition Level of Alertness Alert Orientation Name,Age,Birthday,Month,Date, Year,Day of Week,Place, Situation Language Function Ability No Deficits Noted Safety Awareness Understands Safety Issues Memory Description No Deficits Noted Gross Range of Motion Upper Extremity ROM Assessment Within Functional Limits Lower Extremity ROM Assessment Left Impaired Strength Upper Extremity Strength Assessment Within Functional Limits Lower Extremity Strength Assessment Left Impaired M6 PT-IP Treatment Start: 02/19/19 08:11 Freq: NEEDED Status: Active Protocol: Document 02/19/19 11:11 (Rec: 02/19/19 11:37 [email or web address]) Physical Therapy Treatment Education Education Provided Precautions,Weight Bearing Status,Post-Op Packet,Safety Equipment Issued Equipment Type and Company forefoot off loading post op shoes M7 PT-IP Assessment and Plan Start: 10/23/19 08:11 Freq: NEEDED Status: Active Protocol: Document 02/19/19 11:11 (Rec: 02/19/19 11:37 [email or web address]) PT Summary Assessment and Plan Potential Rehabilitation Potential Excellent Status of Condition at Evaluation Stable Summary Impairments Pain,ROM,Strength,Balance,Bed Mobility,Transfers,Gait, Activity Tolerance Assessment Summary Pt is low complexity who is s/ p I & D L foot abscess due to acute cellulitis, along with NWB protocol at L forefoot. 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 Pt's 2 dtrs at bedside today. Review with pt and family regarding WB protocol. Pt did well who needs CGA for all mobility. She was able to either WB through L heel / hop for transfer or gait training with FWW safely. Recommended to acquire forefoot off loading shoes for mobility. Will notify Surgeon for verbal order and attempt to use it for next visit. Pt's current plan is to d/c to her dtr's house with family assistance. Discussed with family and pt that pt will benefit to acquire Lifeline for safety, Pt might also benefit from home health therapy to improve her mobility and strength. Goals Bed Mobility Goal Independent Transfer Goal Independent,Front Wheeled Walker Gait Goal Independent,Front Wheel Walker Gait Distance 80 Other Goals attempt mobility with forefoot off loading shoes Days to Meet Goals 5 Frequency of Treatment Frequency Of Treatment Twice a Day Treatment Plan Physical Therapy Treatment Plan Bed Mobility Training,Transfer Training,Gait Training, Therapeutic Exercise,Balance Retraining,Post Op Education, Discharge Planning,Hot or Cold Pack,Neuromuscular Re-ed Other Recommendations and Next Treatment attempt mobility with forefoot Focus off loading shoes Recommendations To Nursing Amount of Assist Needed 1 Person Assist Discharge Recommendations PT Discharge Recommendations Home with Assistance,Home Health
--- NOTE | 2019-02-19 11:57 | PC.NURSE ---
[facility] trough still processing, will continue to follow.
[2019-02-19 12:31] LABS: Vancomycin Trough 11.2 ug/mL (10-20)
--- NOTE | 2019-02-19 12:32 | PC.NURSE ---
Patient up to chair after working with PT Patient A/Ox4 Patient reports pain at a 3, right foot. Dressing in CDI, pulses are equal and bilateral. Patient denies numbness or tingling. Awaiting Vanco trough from lab in order to proceed with next dose. Will follow up.
[2019-02-19] MEDS: ACETAMINOPHEN 325 MG TABLET 650 MG PO ×2 (13:01→20:45)
[2019-02-19] MEDS: VANCOMYCIN 750 MG/150 ML FROZ.PIGGY 100 MG IV (13:02)
[2019-02-19] MEDS: VANCOMYCIN TROUGH 1 REQUEST MISC (13:02)
--- NOTE | 2019-02-19 15:31 | PT.IPTN ---
Current Diagnoses Cellulitis of left lower limb (02/17/19) Surgery Performed Operation Date: 02/18/19 17:30 Actual Procedures p I&D foot(Left) - Brennan Cohen MD Physical Therapy Treatment Note M2 PT-IP Current Condition Start: 02/19/19 08:11 Freq: NEEDED Status: Active Protocol: Document 02/19/19 11:11 HH (Rec: 02/19/19 11:37 [email or web address]) Physical Therapy Current Condition Current Condition Evaluation Date 02/19/19 Treatment Diagnosis I & D on L forefoot, difficulty in walking and balance. Onset Date 02/18/19 Weight Bearing Status Weight Bearing Status Non-Weight Bearing Allowed Weight Bearing Amount (enter % NWB at the ball of the foot. 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 Assessment Left Impaired M6 PT-IP Treatment Start: 02/19/19 08:11 Freq: NEEDED Status: Active Protocol: Document 02/19/19 15:28 GGD (Rec: 02/19/19 15:31 GGD [email or web address]) Physical Therapy Treatment Education Education Provided Weight Bearing Status Brace Education [place],Caregiver Equipment Issued Equipment Type and Company Post op offloading shoe. M7 PT-IP Assessment and Plan Start: 02/19/19 08:11 Freq: NEEDED Status: Active Treatment Plan Physical Therapy Treatment Plan Bed Mobility Training,Transfer Training,Gait Training, Therapeutic Exercise,Balance Retraining,Post Op Education, Discharge Planning,Hot or Cold Pack,Neuromuscular Re-ed Other Recommendations and Next Treatment attempt mobility with forefoot Focus off loading shoes Recommendations To Nursing Amount of Assist Needed 1 Person Assist Discharge Recommendations PT Discharge Recommendations Home with Assistance,Home Health
[2019-02-19 15:40] VITALS: BP 149/81; PULSE 62; RESP 17; TEMP 37.7; O2SAT 95
[2019-02-19 15:55] VITALS: PULSE 70; O2SAT 96
[2019-02-19] MEDS: CEFEPIME 2 GM in SODIUM CHLORIDE 0.9% 100 ML IV (19:25)
[2019-02-19 19:45] VITALS: BP 132/69; PULSE 64; RESP 17; TEMP 36.8; O2SAT 95
[2019-02-20] VITALS: BP 149/76; PULSE 63; RESP 16; TEMP 36.6; O2SAT 95
[2019-02-20] MEDS: VANCOMYCIN 750 MG/150 ML FROZ.PIGGY 100 MG IV ×2 (01:08→12:57)
[2019-02-20] MEDS: ACETAMINOPHEN 325 MG TABLET 650 MG PO ×2 (02:18→15:14)
--- NOTE | 2019-02-20 04:52 | PC.NURSE ---
Risk Management Specialist Note: 0045: Pt resting in bed. Vital signs stable. Dressing to lt leg cdi. IV in place in lt hand. SCDs on. Pt has visitor at bedside for the night. Recently medicated for pain with Tylenol.
[2019-02-20 05:30] VITALS: BP 143/83; PULSE 67; RESP 16; TEMP 36.8; O2SAT 92
[2019-02-20] MEDS: PANTOPRAZOLE 40 MG TABLET PO (06:27)
[2019-02-20] MEDS: CEFEPIME 2 GM in SODIUM CHLORIDE 0.9% 100 ML IV ×2 (06:27→20:37)
[2019-02-20 07:31] LABS: Add Manual Diff / Slide Review NO; Basophils Absolute Auto 100 /uL (0-100); Eosinophils Absolute Auto 200 /uL (0-450); Eosinophils Percent Auto 2.9 % (2-4); Hematocrit 33.2 % (36-46); Hemoglobin 11.1 g/dL (12.0-16.0); Lymphocytes Absolute Auto 1000 /uL (1100-4500); Lymphocytes Percent Auto 18.7 % (25-40); Mean Corpuscular HGB Conc 33.4 % (30-36); Mean Corpuscular Hemoglobin 29.7 PG (26-34); Mean Corpuscular Volume 88.7 fL (80-100); Monocytes Absolute Auto 1000 /uL (0-900); Monocytes Percent Auto 18.4 % (3-14); Neutrophils Absolute Auto 3200 /uL (1500-7000); Platelet Count 215 X10^3/uL (150-400); Red Blood Cell Count 3.74 X10^6/uL (4.0-5.2); Red Cell Distribution Width 14.8 % (11.6-14.8); White Blood Cell Count 5.4 X10^3/uL (4.5-11.0)
[2019-02-20 07:45] LABS: Blood Urea Nitrogen 14 mg/dL (7-17); Calcium 9.5 mg/dL (8.4-10.2); Carbon Dioxide 27 mmol/L (22-32); Chloride 108 mmol/L (98-107); Estimated Glomerular Filt Rate > 60.0 mL/min (>60); Glucose 94 mg/dL (80-110); HEMOLYSIS < 15 (0-50); Magnesium 2.1 mg/dL (1.6-2.3); Potassium 3.8 mmol/L (3.4-5.1); Sodium 141 mmol/L (137-145)
--- NOTE | 2019-02-20 07:50 | PM.PNPO.1 ---
Subjective Subjective Date Patient Seen: 02/20/19 Time Patient Seen: 07:51 Interval history: She is doing fine Exam Vital Signs (past 8 hours): - 02/20/19 00:00 02/20/19 05:30 Temperature 97.8 F 98.2 F Pulse Rate 63 67 Respiratory Rate 16 16 Blood Pressure 149/76 H 143/83 H Pulse Oximetry 95 92 Oxygen Delivery Method Room Air Oxygen Flow Rate 0 Const Orientation: alert and oriented x3 Extrem Other: Left foot dressing changed incision clean dry intact. No more erythema or induration. No drainage Objective Labs Result Diagrams: 02/20/19 06:58 02/19/19 06:56 Labs: Laboratory Results - last 24 hr 02/19/19 02/20/19 10:45 06:58 WBC 5.4 RBC 3.74 L Hgb 11.1 L Hct 33.2 L MCV 88.7 MCH 29.7 MCHC 33.4 RDW 14.8 Plt Count 215 Neut % (Auto) 59.0 Lymph % (Auto) 18.7 L [place] % (Auto) 18.4 H Eos % (Auto) 2.9 Baso % (Auto) 1.0 Neut # (Auto) 3200 Lymph # (Auto) 1000 L [place] # (Auto) 1000 H Eos # (Auto) 200 Baso # (Auto) 100 Vancomycin Trough 11.2 Assessment & Plan Post-op Postoperative Procedures: Procedures Operation Date: 02/18/19 17:30 Actual Procedures Side Surgeon p I&D foot Left Brennan Cohen MD She is doing very well. Continue on her IV antibiotics today. Waiting on final sensitivities but it looks like gram-negative bacilli from her cultures the other day. There was no evidence of osteomyelitis in this area on the MRI. I am comfortable with switching her over to oral antibiotics and discharging home once we have final sensitivities. She can follow up with me in 1 week. Quality VTE Deep Vein Thrombosis/Pulmonary Embolism Present on Admission: No
[2019-02-20 08:05] VITALS: BP 149/76; PULSE 60; RESP 16; TEMP 36.6; O2SAT 94
[2019-02-20] MEDS: DOCUSATE 100 MG CAPSULE PO (08:51)
[2019-02-20] MEDS: ENOXAPARIN 40 MG/0.4 ML SYRINGE SUBCUT (08:51)
--- NOTE | 2019-02-20 09:24 | PT.IPTN ---
Current Diagnoses Cellulitis of left lower limb (02/17/19) Surgery Performed Operation Date: 02/18/19 17:30 Actual Procedures p I&D foot(Left) - Brennan Cohen MD Physical Therapy Treatment Note M2 PT-IP Current Condition Start: 02/19/19 08:11 Freq: NEEDED Status: Active Protocol: Document 02/19/19 11:11 HH (Rec: 02/19/19 11:37 [email or web address]) Physical Therapy Current Condition Current Condition Evaluation Date 02/19/19 Treatment Diagnosis I & D on L forefoot, difficulty in walking and balance. Onset Date 02/18/19 Weight Bearing Status Weight Bearing Status Non-Weight Bearing Allowed Weight Bearing Amount (enter % NWB at the ball of the foot. 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 Number of HOSPICE RN Visits 1 Physical Therapy Visit Comments Patient Comments I want to get and move around , need my new shoe. Patient Goals To return home with daughter Renea, 1 step to her front door, can use FWW. Therapy Pain Assessment Pain Present Pain Present Denied Pain M4 PT-IP Mobility and Gait Start: 02/19/19 08:11 Freq: NEEDED Status: Active Protocol: Document 02/20/19 09:24 SP (Rec: 02/20/19 11:12 SP [id number]) PT-Transfer Assessment Sit to and From Stand Sit to and from Stand Contact Guard Assistance,Use of Upper Extremities Equipment Transfer Assistive Device Gait Belt,Front Wheeled Walker Orthotic/Prosthetic Devices or Brace: No Transfers Transfer Destination Chair Transfer Ability Level of Assist Contact Guard Assistance Comments Mobility Comments Pt good safety hand placement and FWW positioning. Occasional cues for heel WB/ flat foot. Gait Assessment Gait Gait Assistance Required: Contact Guard Assist Distance (Feet) 212 Able to Maintain Weight Bearing Status Yes During Gait Assistive Devices Assistive Device Gait Belt,Front Wheeled Walker Orthotic/Prosthetic Devices or Brace: No Gait Deviations General Gait Pattern Decreased Stride Length, Decreased Feet Clearance, Flexed Trunk,Step-to Gait Factors Limiting Gait Function Factors Limiting Gait Function Decreased Activity Tolerance, Decreased Strength,Limited Range of Motion,Pain,Poor Balance Comments Gait Comments Min cues for heel WB/flat foot during RLE advancement and safety positioning of FWW during turns and L foot. M5 PT-IP Objective Assessments Start: 02/19/19 08:11 Freq: NEEDED Status: Active Protocol: Document 02/19/19 11:11 HH (Rec: 02/19/19 11:37 HH [email or web address]) Orientation Orientation/Cognition Level of Alertness Alert Orientation Name,Age,Birthday,Month,Date, Year,Day of Week,Place, Situation Language Function Ability No Deficits Noted Safety Awareness Understands Safety Issues Memory Description No Deficits Noted Gross Range of Motion Upper Extremity ROM Assessment Within Functional Limits Lower Extremity ROM Assessment Left Impaired Strength Upper Extremity Strength Assessment Within Functional Limits Lower Extremity Strength Assessment Left Impaired M6 PT-IP Treatment Start: 02/19/19 08:11 Freq: NEEDED Status: Active Protocol: Document 02/19/19 15:28 GGD (Rec: 02/19/19 15:31 GGD [email or web address]) Physical Therapy Treatment Education Education Provided Weight Bearing Status Brace Education [place],Caregiver Equipment Issued Equipment Type and Company Post op offloading shoe. M7 PT-IP Assessment and Plan Start: 02/19/19 08:11 Freq: NEEDED Status: Active Protocol: Document 02/20/19 09:24 SP (Rec: 02/20/19 11:12 SP [id number]) PT Summary Assessment and Plan Potential Rehabilitation Potential Excellent Status of Condition at Evaluation Stable Summary Impairments Pain,ROM,Strength,Balance,Bed Mobility,Transfers,Gait, Activity Tolerance Assessment Summary Pt is low complexity who is s/ p I & D L foot abscess due to acute cellulitis, along with NWB protocol at L forefoot. 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 Pt did well who needs CGA for all mobility. She was able to either WB through L heel for transfer or gait training with FWW safely. Pt's current plan is to d/c to her dtr's house with family assistance. Pt reported low level more discomfort not pain 2-3/10. Pt call light and chair alarm provided end of appt, left in room with daughter. Goals Bed Mobility Goal Independent Transfer Goal Independent,Front Wheeled Walker Gait Goal Independent,Front Wheel Walker Gait Distance 80 Other Goals attempt mobility with forefoot off loading shoes Days to Meet Goals 5 Frequency of Treatment Frequency Of Treatment Twice a Day Treatment Plan Physical Therapy Treatment Plan Bed Mobility Training,Transfer Training,Gait Training, Therapeutic Exercise,Balance Retraining,Post Op Education, Discharge Planning,Hot or Cold Pack,Neuromuscular Re-ed Other Recommendations and Next Treatment attempt mobility with forefoot Focus off loading shoes Recommendations To Nursing Amount of Assist Needed 1 Person Assist Discharge Recommendations PT Discharge Recommendations Home with Assistance,Home Health
[2019-02-20 12:15] VITALS: BP 149/76; PULSE 63; RESP 16; TEMP 37; O2SAT 96
--- NOTE | 2019-02-20 14:39 | PC.NURSE ---
Patient back to bed. A/O x3. IV is infusing Vanco 750 mg @100cc/hr at this time. Site is intact and patent, small amount of serosangious drainage noted under dsg. Patient tolerating infusion. LLE foot dsg is CDI, patient denies pain at this time. SCD's applied bilaterally, patient has been tolerating ORTHO boot with ambulation. Denies further needs at this time.
--- NOTE | 2019-02-20 15:39 | PT.IPTN ---
Current Diagnoses Cellulitis of left lower limb (02/17/19) Surgery Performed Operation Date: 02/18/19 17:30 Actual Procedures p I&D foot(Left) - Brennan Cohen MD Physical Therapy Treatment Note M2 PT-IP Current Condition Start: 02/19/19 08:11 Freq: NEEDED Status: Active Protocol: Document 02/19/19 11:11 HH (Rec: 02/19/19 11:37 [id number]) Physical Therapy Current Condition Current Condition Evaluation Date 02/19/19 Treatment Diagnosis I & D on L forefoot, difficulty in walking and balance. Onset Date 02/18/19 Weight Bearing Status Weight Bearing Status Non-Weight Bearing Allowed Weight Bearing Amount (enter % NWB at the ball of the foot. 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 Can I get some tylenol first. Patient Goals To return home with daughter Renea, 1 step to her front door, can use FWW. Therapy Pain Assessment Pain When Pain Assessed At Rest Pain Present Pain Present Pain Reported Location Left Hip Intensity 3 Scale Used Numeric (1 - 10) Description Aching,Dull,Tightness Pain Behaviors Holding Area,Restlessness Pain Management Techniques Modification of Treatment,Re- positioning,Timing of Activity with Medications M4 PT-IP Mobility and Gait Start: 02/19/19 08:11 Freq: NEEDED Status: Active Protocol: Document 02/20/19 15:39 SP (Rec: 02/20/19 15:54 SP [id number]) PT-Bed Mobility Assessment Rolling Type of Rolling Roll to Left Level of Assist Standby Assistance Supine to Sit Supine to Sit Standby Assistance,Bedrails Sit to Supine Sit to Supine Standby Assistance,Bedrails Scooting Scooting to Edge of Bed Standby Assistance Scooting Up and Down in Bed Standby Assistance PT-Transfer Assessment Sit to and From Stand Sit to and from Stand Contact Guard Assistance,Use of Upper Extremities Equipment Transfer Assistive Device Gait Belt,Front Wheeled Walker Orthotic/Prosthetic Devices or Brace: No Transfers Transfer Destination Bed,Toilet Transfer Ability Level of Assist Contact Guard Assistance Comments Mobility Comments Pt good safety hand placement, heel WB and FWW positioning during transfer. Gait Assessment Gait Gait Assistance Required: Contact Guard Assist Distance (Feet) 30 Able to Maintain Weight Bearing Status Yes During Gait Assistive Devices Assistive Device Gait Belt,Front Wheeled Walker Orthotic/Prosthetic Devices or Brace: No Gait Deviations General Gait Pattern Decreased Stride Length, Decreased Feet Clearance, Flexed Trunk,Step-to Gait Factors Limiting Gait Function Factors Limiting Gait Function Decreased Activity Tolerance, Decreased Strength,Limited Range of Motion,Pain,Poor Balance M5 PT-IP Objective Assessments Start: 02/19/19 08:11 Freq: NEEDED Status: Active Protocol: Document 02/19/19 11:11 HH (Rec: 02/19/19 11:37 [id number]) Orientation Orientation/Cognition Level of Alertness Alert Orientation Name,Age,Birthday,Month,Date, Year,Day of Week,Place, Situation Language Function Ability No Deficits Noted Safety Awareness Understands Safety Issues Memory Description No Deficits Noted Gross Range of Motion Upper Extremity ROM Assessment Within Functional Limits Lower Extremity ROM Assessment Left Impaired Strength Upper Extremity Strength Assessment Within Functional Limits Lower Extremity Strength Assessment Left Impaired M6 PT-IP Treatment Start: 02/19/19 08:11 Freq: NEEDED Status: Active Protocol: Document 02/20/19 15:39 SP (Rec: 02/20/19 15:51 SP [id number]) Physical Therapy Treatment Exercises Exercises Ankle Pumps,Quad Sets,Heel Slides,Straight Leg Raises, Supine Hip Abduction,Seated Knee Flexion/Extension Equipment Issued Equipment Type and Company Post op offloading shoe. M7 PT-IP Assessment and Plan Start: 02/19/19 08:11 Freq: NEEDED Status: Active Protocol: Document 02/20/19 15:39 SP (Rec: 02/20/19 15:51 SP [id number]) PT Summary Assessment and Plan Potential Rehabilitation Potential Excellent Status of Condition at Evaluation Stable Summary Impairments Pain,ROM,Strength,Balance,Bed Mobility,Transfers,Gait, Activity Tolerance Assessment Summary Pt is low complexity who is s/ p I & D L foot abscess due to acute cellulitis, along with NWB protocol at L forefoot. 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 Pt did well who needs CGA for all mobility. She was able to either WB through L heel for transfer or gait training with FWW safely. Pt's current plan is to d/c to her dtr's house with family assistance. Pt reported low level more discomfort not pain 2-3/. Pt call light and chair alarm provided end of appt, left in room with daughter. Goals Bed Mobility Goal Independent Transfer Goal Independent,Front Wheeled Walker Gait Goal Independent,Front Wheel Walker Gait Distance 80 Other Goals attempt mobility with forefoot off loading shoes Days to Meet Goals 5 Frequency of Treatment Frequency Of Treatment Twice a Day Treatment Plan Physical Therapy Treatment Plan Bed Mobility Training,Transfer Training,Gait Training, Therapeutic Exercise,Balance Retraining,Post Op Education, Discharge Planning,Hot or Cold Pack,Neuromuscular Re-ed Other Recommendations and Next Treatment Continue use of off loadign Focus shoe with mobility , improvement this afternoon with heel WB bed to bathroom. Recommendations To Nursing Amount of Assist Needed 1 Person Assist Discharge Recommendations PT Discharge Recommendations Home with Assistance,Home Health
[2019-02-20 16:00] VITALS: BP 149/77; PULSE 59; RESP 17; TEMP 37.1; O2SAT 97
--- NOTE | 2019-02-20 16:04 | CM.DPC ---
DCP continues: EMR Reviewed: CM met with patient at bedside patient stated she was feeling better and would like to go home to her daughters house to finish recovery. during AM rounds Dr. Nicholas stated he was waiting on Cultures to determine if band attacher IV antibiotics are needed. Plan: patient would like to D/C home to her daughters house on [facility] when medically stable. Patient will need priority boarding at that time. VS d/c home with needed IV infussions. To be determined based on Culture results. CM will follow closely with d/c plan. Erin Byers RN.
--- NOTE | 2019-02-20 17:30 | P.PN_ITS ---
Subjective Subjective Date Patient Seen: 02/20/19 Time Patient Seen: 11:00 Interval history: Roxana Villagran is an 84-year-old female seen today for follow- up of a left toe infection. She feels well at this time. She reports no pain, no fevers, chills, nausea, vomiting. She underwent operative debridement two days ago, and Dr. Cohen feels that there is a low likelihood of osteomyelitis based on his operative findings, especially over the area of the abscess. Gram stain is showing gram-positive cocci and gram-negative rods. Wound cultures from the ED are growing 3 types of gram-negative rods, currently pending speciation and sensitivities. She remains on cefepime and vancomycin, she remain on these pending operative cultures given that that Gram stain from the OR is showing gram-positive cocci. Exam Vital Signs (past 8 hours): - 02/20/19 12:15 Temperature 98.6 F Pulse Rate 63 Respiratory Rate 16 Blood Pressure 149/76 H Pulse Oximetry 96 Oxygen Delivery Method Room Air Oxygen Flow Rate 0 Narrative Exam Narrative: GENERAL APPEARANCE: Well developed, well nourished, in no acute distress. SKIN: Patient has foot deformities as noted below, however rest of skin exam is without erythema, ulcerations, or rashes. HEENT: The sclerae were anicteric and conjunctivae were pink and moist. Extraocular movements were intact and pupils were equal, round with normal accommodation. External inspection of the ears and nose showed no scars, lesions, or masses. Lips, teeth, and gums showed normal mucosa. The oral mucosa, hard and soft palate, tongue and posterior pharynx were unremarkable. NECK: Supple and symmetric. There was no thyroid enlargement, and no tenderness, or masses were felt. CHEST: Normal AP diameter and normal contour without any kyphoscoliosis. LUNGS: Auscultation of the lungs revealed no wheezes, rhonchi, or rales. CARDIOVASCULAR: There was a regular rate and rhythm without any murmurs, gallops, rubs. Peripheral pulses were 2+ and symmetric. ABDOMEN: Soft and nontender with normal bowel sounds. No ascites was noted. MUSCULOSKELETAL: There was no tenderness or effusions noted. Muscle strength and tone were normal. EXTREMITIES: Left toe bandage is in place and clear dry and intact. She is able to move her toes well. NEUROLOGIC: Alert and oriented x 3. Normal affect. Strength is +5/5 in the Upper Extremities and Lower Extremities Bilaterally. Sensation to touch was normal. Objective Labs Result Diagrams: 02/20/19 06:58 02/20/19 06:58 Labs: Laboratory Results - last 24 hr 02/20/19 02/20/19 06:58 06:58 WBC 5.4 RBC 3.74 L Hgb 11.1 L Hct 33.2 L MCV 88.7 MCH 29.7 MCHC 33.4 RDW 14.8 Plt Count 215 Neut % (Auto) 59.0 Lymph % (Auto) 18.7 L [place] % (Auto) 18.4 H Eos % (Auto) 2.9 Baso % (Auto) 1.0 Neut # (Auto) 3200 Lymph # (Auto) 1000 L [place] # (Auto) 1000 H Eos # (Auto) 200 Baso # (Auto) 100 Sodium 141 Potassium 3.8 Chloride 108 H Carbon Dioxide 27 BUN 14 Creatinine 0.50 L Estimated GFR > 60.0 BUN/Creatinine Ratio 28.0 H Glucose 94 Calcium 9.5 Magnesium 2.1 Assessment & Plan Assessment & Plan narrative: Roxana Villagran is a pleasant 84 y.o. female with a minimal medical history, but a recent inguinal hernia surgical repair admitted for a left foot abscess and surrounding cellulitis. 1. Cellulitis and abscess of the left foot, acute and present on admission, improved -She is initiated on IV vanco 1500 mg in the ED, added cefepime for broader coverage. Will await final cultures but current results are gram-negative bacilli from the wound culture in the ED and GNB with GPC -Will request dosing by Pharmacy for vancomycin -Dr. Cohen following with Orthopedic Surgery, appreciate assistance with management. She is POD #2 s/p operative debridement and doing well. She should follow up with Dr. Cohen in one week. - MRI was indeterminate regarding possible osteomyelitis, but did show possible developing abscess. Dr. Watkins did not see evidence of osteomyelitis in the operating room, and feels that it is highly unlikely there is infection in her bone near her abscess. -will await final cultures and sensitivities before discharging home hopefully on oral antibiotics. Would favor a 10 day total course of antibiotics. 2. Elevated Glucose -patient had a glucose of 159 on initial BMP, and with corresponding left foot abscess ordered A1c which is 5.3. - no further mangement. Code: Full Dispo: remains inpatient, will await final culture from the operating room before determining appropriate antibiotics and discharge home. Quality VTE Deep Vein Thrombosis/Pulmonary Embolism Present on Admission: No
[2019-02-21] VITALS: BP 126/70; PULSE 60; RESP 18; TEMP 36.5; O2SAT 95
[2019-02-21] MEDS: VANCOMYCIN 750 MG/150 ML FROZ.PIGGY 100 MG IV ×2 (00:19→13:19)
[2019-02-21] MEDS: ACETAMINOPHEN 325 MG TABLET 650 MG PO ×3 (00:23→19:46)
[2019-02-21 04:30] VITALS: BP 152/78; PULSE 66; RESP 16; TEMP 36.5; O2SAT 94
[2019-02-21] MEDS: PANTOPRAZOLE 40 MG TABLET PO (06:19)
--- NOTE | 2019-02-21 07:25 | PM.PNPO.1 ---
Subjective Subjective Date Patient Seen: 02/21/19 Time Patient Seen: 07:25 Interval history: She is feeling much better today. Exam Vital Signs (past 8 hours): - 02/21/19 00:00 02/21/19 04:30 Temperature 97.7 F 97.7 F Pulse Rate 60 66 Respiratory Rate 18 16 Blood Pressure 126/70 152/78 H Pulse Oximetry 95 94 Oxygen Delivery Method Room Air Oxygen Flow Rate 0 Const Orientation: alert and oriented x3 Extrem Other: Left foot dressing clean dry intact intact sensation, good capillary refill. Comfortably wiggles toes Objective Labs Result Diagrams: 02/20/19 06:58 02/20/19 06:58 Labs: Laboratory Results - last 24 hr 02/20/19 02/20/19 06:58 06:58 WBC 5.4 RBC 3.74 L Hgb 11.1 L Hct 33.2 L MCV 88.7 MCH 29.7 MCHC 33.4 RDW 14.8 Plt Count 215 Neut % (Auto) 59.0 Lymph % (Auto) 18.7 L [place] % (Auto) 18.4 H Eos % (Auto) 2.9 Baso % (Auto) 1.0 Neut # (Auto) 3200 Lymph # (Auto) 1000 L [place] # (Auto) 1000 H Eos # (Auto) 200 Baso # (Auto) 100 Sodium 141 Potassium 3.8 Chloride 108 H Carbon Dioxide 27 BUN 14 Creatinine 0.50 L Estimated GFR > 60.0 BUN/Creatinine Ratio 28.0 H Glucose 94 Calcium 9.5 Magnesium 2.1 Assessment & Plan Post-op Postoperative Procedures: Procedures Operation Date: 02/18/19 17:30 Actual Procedures Side Surgeon p I&D foot Left Brennan Cohen MD she is healing well. Her intraoperative cultures showed gram-positive cocci and gram-negative rods on the Gram stain and are starting to grow bacteria at this point. Her emergency room cultures have grown E coli which is pansensitive as well as they are growing gram-positive cocci. We are waiting on final sensitivities and then she can be discharged home on oral medications once these come back. Follow-up in 1 week in my office. Quality VTE Deep Vein Thrombosis/Pulmonary Embolism Present on Admission: No
[2019-02-21 08:00] VITALS: BP 152/74; PULSE 56; RESP 16; TEMP 36.3; O2SAT 96
[2019-02-21] MEDS: ENOXAPARIN 40 MG/0.4 ML SYRINGE SUBCUT (09:08)
[2019-02-21] MEDS: CEFEPIME 2 GM in SODIUM CHLORIDE 0.9% 100 ML 200 ML IV ×2 (09:15→19:47)
[2019-02-21 11:04] VITALS: BP 140/53; PULSE 54; RESP 16; TEMP 36.4; O2SAT 97
--- NOTE | 2019-02-21 11:20 | P.PN_ITS ---
Subjective Subjective Date Patient Seen: 02/21/19 Interval history: Roxana Villagran is an 84-year-old female with a minimal medical history but a recent inguinal hernia surgical repair who presented with left foot pain and was admitted for a left foot abscess and surrounding cellulitis. The patient is resting in bedside chair comfortably and in no acute distress. She is eager to go home. She has no complaints overall and denies headache, shortness of breath, chest pain, abdominal pain, nausea, vomiting, fever, chills, dysuria, diarrhea or constipation. She is voiding and eliminating without difficulty. She is up ambulating with assistance. Exam Vital Signs (past 8 hours): - 02/21/19 04:30 02/21/19 08:00 Temperature 97.7 F 97.3 F L Pulse Rate 66 56 L Respiratory Rate 16 16 Blood Pressure 152/78 H 152/74 H Pulse Oximetry 94 96 Oxygen Delivery Method Room Air Oxygen Flow Rate 0 Narrative Exam Narrative: General: Elderly thin female sitting in bedside chair and in no acute distress, appropriately interactive HEENT: Normocephalic, atraumatic. External ears without defect. Pupils equal, round, and reactive to light. Anicteric sclerae, moist conjunctivae, and no lid lag. Neck: Supple with full range of motion. No jugular venous distension. No lymphadenopathy or thyromegaly. Cardiovascular: Regular rate and rhythm without murmurs, rubs, or gallops appreciated Pulmonary: Clear to auscultation bilaterally without crackles, wheezes, or rhonchi. Normal respiratory effort with no use of accessory muscles. Abdomen: Soft, bowel sounds present, nontender, nondistended. No hepatosplenomegaly or masses appreciated. Extremities: No clubbing, cyanosis, or edema. Left foot with dressing in place C/D/I without surrounding erythema or edema. Skin: Normal temperature, turgor, and texture; no rash, ulcers, or subcutaneous nodules appreciated. Neurological: Cranial nerves grossly intact. Psychiatric: Normal mood and affect. Alert and oriented to person, place, and time. Objective Labs Result Diagrams: 02/20/19 06:58 02/20/19 06:58 Assessment & Plan Assessment & Plan narrative: Roxana Villagran is an 84-year-old female with a minimal medical history but a recent inguinal hernia surgical repair who presented with left foot pain and was admitted for a left foot abscess and surrounding cellulitis. 1. Acute left foot abscess with surrounding cellulitis, status post I&D, present on admission. Resolving. -MR left foot demonstrated prominent soft tissue rim enhancement pattern at the base of the first metatarsal head, and the second/third metatarsal heads, invol ving the subcutaneous soft tissue raising the possibility of phlegmon versus developing abscess. However, no definite internal fluid signal intensity. Marrow signal changes at the fifth metatarsal head raises possibility of chronic erosion although early osteomyelitis cannot be entirely excluded. Please correlate to clinical exam findings. Second and third toe marrow signal intensity, as well as the remaining marrow signal intensity grossly unremarkable. Diffuse dorsal subcutaneous edema. -Consulted Dr. Cohen of Orthopedic Surgery who performed I&D. Plan for outpatient follow up with Dr. Cohen in one week. -MRI was indeterminate regarding possible osteomyelitis, but did show possible d eveloping abscess. Dr. Watkins did not see evidence of osteomyelitis in the operating room, and feels that it is highly unlikely there is infection in the bone near her abscess. -Wound cultures growing multiple organisms including Klebsiella, E coli, Staph coccus, Streptococcus, and possibly Enterococcus. Blood cultures x 2 have no growth to date. -Continue vancomycin with dosing per pharmacist and cefepime 2 g IV every 12 hours pending final wound culture identification and sensitivities. 2. Acute elevated glucose, present on admission. Resolved. -Patient had a glucose of 159 on initial BMP likely due to acute infection with left foot abscess. -Hemoglobin A1c normal at 5.3%. -No further management. Code: Full Dispo: Patient will discharge home tomorrow pending identification and sensitivities of wound culture. Quality VTE Deep Vein Thrombosis/Pulmonary Embolism Present on Admission: No
--- NOTE | 2019-02-21 11:36 | PT.IPTN ---
Current Diagnoses Cellulitis of left lower limb (02/17/19) Surgery Performed Operation Date: 02/18/19 17:30 Actual Procedures p I&D foot(Left) - Brennan Cohen MD Physical Therapy Treatment Note M2 PT-IP Current Condition Start: 02/19/19 08:11 Freq: NEEDED Status: Active Protocol: Document 02/19/19 11:11 HH (Rec: 02/19/19 11:37 [email or web address]) Physical Therapy Current Condition Current Condition Evaluation Date 02/19/19 Treatment Diagnosis I & D on L forefoot, difficulty in walking and balance. Onset Date 02/18/19 Weight Bearing Status Weight Bearing Status Non-Weight Bearing Allowed Weight Bearing Amount (enter % NWB at the ball of the foot. 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 Therapy Pain Assessment Pain Present Pain Present Denied Pain M4 PT-IP Mobility and Gait Start: 02/19/19 08:11 Freq: NEEDED Status: Active Protocol: Document 02/21/19 09:30 HH (Rec: 02/21/19 11:35 [email or web address]) PT-Transfer Assessment Sit to and From Stand Sit to and from Stand Contact Guard Assistance,Use of Upper Extremities Equipment Transfer Assistive Device Gait Belt,Front Wheeled Walker Orthotic/Prosthetic Devices or Brace: No Transfers Transfer Destination Chair Transfer Technique FWW Transfer Ability Level of Assist Contact Guard Assistance Comments Mobility Comments Pt was able to stand up with UE push off and CGA and FWW. Pt demonstrates good UE strength for transfer activities. Gait Assessment Gait Gait Assistance Required: Contact Guard Assist Distance (Feet) 60 Able to Maintain Weight Bearing Status Yes During Gait Assistive Devices Assistive Device Gait Belt,Front Wheeled Walker Orthotic/Prosthetic Devices or Brace: No Gait Deviations General Gait Pattern Decreased Stride Length, Decreased Feet Clearance, Flexed Trunk,Step-to Gait Factors Limiting Gait Function Factors Limiting Gait Function Decreased Activity Tolerance, Decreased Strength,Limited Range of Motion,Pain,Poor Balance Comments Gait Comments Pt uses step to gait with FWW. She is very steady without sign of LOB. Stair Climbing Assessment Evaluation Level of Assist On Stairs Contact Guard Assistance Devices Stair Climbing Assistive Devices Front Wheel Walker Technique/Endurance Stair Climbing Direction Ascend and Descend Stair Climbing Technique Step to Step Number of Steps Climbed 1 Stair Climbing Set # Repetitions (reps) 2 Comments Stair Climbing Comments use platform step and educated pt to up with the R and down with L to promote stability. Pt has good UE strength to WB through walker for descending . M5 PT-IP Objective Assessments Start: 02/19/19 08:11 Freq: NEEDED Status: Active Protocol: Document 02/19/19 11:11 HH (Rec: 02/19/19 11:37 [id number]) Orientation Orientation/Cognition Level of Alertness Alert Orientation Name,Age,Birthday,Month,Date, Year,Day of Week,Place, Situation Language Function Ability No Deficits Noted Safety Awareness Understands Safety Issues Memory Description No Deficits Noted Gross Range of Motion Upper Extremity ROM Assessment Within Functional Limits Lower Extremity ROM Assessment Left Impaired Strength Upper Extremity Strength Assessment Within Functional Limits Lower Extremity Strength Assessment Left Impaired M6 PT-IP Treatment Start: 02/19/19 08:11 Freq: NEEDED Status: Active Protocol: Document 02/20/19 15:39 SP (Rec: 02/20/19 15:51 SP [id number]) Physical Therapy Treatment Exercises Exercises Ankle Pumps,Quad Sets,Heel Slides,Straight Leg Raises, Supine Hip Abduction,Seated Knee Flexion/Extension Equipment Issued Equipment Type and Company Post op offloading shoe. M7 PT-IP Assessment and Plan Start: 02/19/19 08:11 Freq: NEEDED Status: Active Protocol: Document 02/21/19 09:30 HH (Rec: 02/21/19 11:35 [id number]) PT Summary Assessment and Plan Potential Rehabilitation Potential Excellent Status of Condition at Evaluation Stable Summary Impairments Pain,ROM,Strength,Balance,Bed Mobility,Transfers,Gait, Activity Tolerance Progress Towards Goals Safe For Discharge Assessment Summary Pt cont to improve and required CGA for overall mobility. Pt able to WBAT on L heel with forefoot offloding post op shoe. She is able to climb one step with FWW safely . Pt is safe to d/c dtr's home with partipate outpatient wound care. Pt will see her hip surgeon March 05 for her L hip revision sx appt. Frequency of Treatment Frequency Of Treatment Discharge Recommendations To Nursing Amount of Assist Needed 1 Person Assist Discharge Recommendations PT Discharge Recommendations Home with Assistance,Home Health
[2019-02-21 15:46] VITALS: BP 157/82; PULSE 62; RESP 18; TEMP 36.4; O2SAT 94
[2019-02-21 19:37] VITALS: BP 147/74; PULSE 58; RESP 16; TEMP 36.3; O2SAT 96
[2019-02-22 00:35] VITALS: BP 147/79; PULSE 57; RESP 16; TEMP 36.7; O2SAT 95
[2019-02-22] MEDS: VANCOMYCIN 750 MG/150 ML FROZ.PIGGY 100 MG IV (01:13)
[2019-02-22 05:36] VITALS: BP 153/75; PULSE 56; RESP 16; TEMP 36.9; O2SAT 95
[2019-02-22] MEDS: PANTOPRAZOLE 40 MG TABLET PO (05:41)
[2019-02-22] MEDS: ACETAMINOPHEN 325 MG TABLET 650 MG PO (05:42)
[2019-02-22 07:30] VITALS: BP 148/94; PULSE 64; RESP 14; TEMP 36.5; O2SAT 96
[2019-02-22] MEDS: ENOXAPARIN 40 MG/0.4 ML SYRINGE SUBCUT (08:04)
[2019-02-22] MEDS: CEFEPIME 2 GM in SODIUM CHLORIDE 0.9% 100 ML 200 ML IV (08:04)
--- NOTE | 2019-02-22 08:43 | P.DS_ITS ---
History of Present Illness History of Present Illness Date Patient Seen: 02/17/19 Chief complaint: LEFT FOOT INFECTION Narrative: Written by Kaley MONTIEL: Roxana Villagran is pleasant 84-year-old female with a limited medical history and was in her usual state of health when she developed pain and swelling at the bottom of her left foot. She saw her PCP on [facility] and was directed to present to the Emergency Department. She had been visiting in [place] for a obbying conference and her daughter who was present in the room stated that she had been soaking her foot in Epsom salts. Patient states she has had a ?corn? for approximately 3 years, then it callused over. She also has had long standing hammer toe where the callous is located. She denies fever, sweats though does endorse chills, denies shortness of breath, nausea or vomiting, dysuria, diarrhea or constipation. She states a prior history of sterile abcesses. Discharge Providers Provider Date of admission: 02/17/19 23:40 Discharge Date: 02/22/19 Consults: 02/17/19 23:58 Consult to Physician Routine Comment: Consulting Provider: Brennan Cohen Reason for consultation: Left foot abscess Has provider been notified: Yes 02/18/19 20:09 Consult to Discharge Planning Routine Comment: Consult to Physical Therapy Evaluate & Treat Comment: Physician Instructions: Evaluate and Treat Consult to Respiratory Therapy Evaluate & Treat Comment: Physician Instructions: Evaluate and treat Discharge provider: Marli Gross DO Summary Hospital Course Discharge Diagnosis: 1. Acute polymicrobial left foot abscess with surrounding cellulitis, status post I&D, present on admission. Resolving. 2. Acute elevated glucose, present on admission. Resolved. Hospital Course: Roxana Villagran is an 84-year-old female with a minimal medical history but a recent inguinal hernia surgical repair who presented with left foot pain and was admitted for a left foot abscess and surrounding cellulitis. 1. Acute polymicrobial left foot abscess with surrounding cellulitis, status post I&D, present on admission. Resolving. -MR left foot demonstrated prominent soft tissue rim enhancement pattern at the base of the first metatarsal head, and the second/third metatarsal heads, involving the subcutaneous soft tissue raising the possibility of phlegmon versus developing abscess. However, no definite internal fluid signal intensity. Marrow signal changes at the fifth metatarsal head raises possibility of chronic erosion although early osteomyelitis cannot be entirely excluded. Please correlate to clinical exam findings. Second and third toe marrow signal intensity, as well as the remaining marrow signal intensity grossly unremarkable. Diffuse dorsal subcutaneous edema. -Consulted Dr. Cohen of Orthopedic Surgery who performed I&D. Plan for outpatient follow up with Dr. Cohen in one week. -MRI was indeterminate regarding possible osteomyelitis, but did show possible developing abscess. Dr. Watkins did not see evidence of osteomyelitis in the operating room, and feels that it is highly unlikely there is infection in the bone near her abscess. -Wound cultures grew multiple organisms including Klebsiella, E. coli, Staphylococcus, Streptococcus species all sensitive to Augmentin. Blood cultures x 2 have no growth to date. -Continued vancomycin with dosing per pharmacist and cefepime 2 g IV every 12 hours and discharged on levofloxacin 750 mg daily for 9 additional days to complete 14 days total. Discharged on probiotic. 2. Acute elevated glucose, present on admission. Resolved. -Patient had a glucose of 159 on initial BMP likely due to acute infection with left foot abscess. -Hemoglobin A1c normal at 5.3%. -No further management. Exam Vital Signs (past 8 hours): - 02/22/19 05:36 Temperature 98.4 F Pulse Rate 56 L Respiratory Rate 16 Blood Pressure 153/75 H Pulse Oximetry 95 Oxygen Delivery Method Room Air Oxygen Flow Rate 0 Narrative Exam Narrative: General: Elderly thin female sitting in bedside chair and in no acute distress, appropriately interactive HEENT: Normocephalic, atraumatic. External ears without defect. Pupils equal, round, and reactive to light. Anicteric sclerae, moist conjunctivae, and no lid lag. Neck: Supple with full range of motion. No jugular venous distension. No lymphadenopathy or thyromegaly. Cardiovascular: Regular rate and rhythm without murmurs, rubs, or gallops appreciated Pulmonary: Clear to auscultation bilaterally without crackles, wheezes, or rhonchi. Normal respiratory effort with no use of accessory muscles. Abdomen: Soft, bowel sounds present, non-tender, non-distended. No hepatosplenomegaly or masses appreciated. Extremities: No clubbing, cyanosis, or edema. Left foot with dressing in place C/D/I without surrounding erythema or edema. Skin: Normal temperature, turgor, and texture; no rash, ulcers, or subcutaneous nodules appreciated. Neurological: Cranial nerves grossly intact. Psychiatric: Normal mood and affect. Alert and oriented to person, place, and time. Objective Labs Result Diagrams: 02/20/19 06:58 02/20/19 06:58 Discharge Plan Discharge Plan Patient Disposition: Home Health Service Discharge comment: You're being discharged home. Please follow-up with [facility] Orthopedic surgery, Dr. Cohen, in 1 week. You have been prescribed Levofloxacin 750 mg daily for 9 additional days. Please take a probiotic 3 times a day with meals. Discharge Med Rec/Prescriptions Prescriptions: New Bacid 1 billion cell- 250 mg Tablet 1 ea PO TIDWM Qty: 42 RF: 0 levofloxacin 750 mg tablet 750 mg PO DAILY Qty: 9 RF: 0 Follow up/Referrals: Brennan Cohen MD [Physician] - 1 Week (PLEASE CALL TO SCHEDULE YOUR FOLLOW UP APPT.) Provider Discharge Instructions Diet: Diet as Tolerated, Low-fat, Low-sodium and Low-cholesterol Activity: Activity as tolerated Other treatments: LEAVE YOUR DRESSING CLEAN, DRY AND INTACT. YOUR DRESSING WAS CHANGED TODAY 02/22/19 BY ORTHO MONTEZ MCNALLY. Visit Report/Discharge Packet Instructions: How to Prevent Falls, DI for Incision and Drainage, [facility]: Wound Care Stand Alone Forms: Surgery Discharge Visit Report Forms: Patient Portal/API, Stroke Signs & Symptoms Discharges patient from system. Discharge Date/Time: 02/22/19 14:30 Quality VTE Deep Vein Thrombosis/Pulmonary Embolism Present on Admission: No
--- NOTE | 2019-02-22 11:03 | PM.PN.1 ---
Subjective Subjective Date Patient Seen: 02/22/19 Time Patient Seen: 11:03 Interval history: Patient is POD#4 s/p irrigation and debridement left foot abscess with Dr. Cohen. Her pain has been well controlled and she has no complaints. Exam Vital Signs (past 8 hours): - 02/22/19 05:36 02/22/19 07:30 Temperature 98.4 F 97.7 F Pulse Rate 56 L 64 Respiratory Rate 16 14 Blood Pressure 153/75 H 148/94 H Pulse Oximetry 95 96 Oxygen Delivery Method Room Air Oxygen Flow Rate 0 Narrative Exam Narrative: 84 year old female resting comfortably in chair. Alert and oriented in no acute distress. Dressing change was performed. Incision healing well, no surrounding erythema or drainage. Patient able to move toes. Sensation intact to light touch. Palpable pedal pulse. Objective Labs Result Diagrams: 02/20/19 06:58 02/20/19 06:58 Assessment & Plan Assessment & Plan narrative: Patient is progressing well post operatively. Final cultures grew strep uberis, staph cohnii, and escherichia hermanii. Per hospitalist, ID was consulted and is recommending 14 day course of Augmentin. She may weight bear on the heel but not on the ball of the foot. New dressing applied today, should remain in place until outpatient follow up with Dr. Cohen in one week. Quality VTE Deep Vein Thrombosis/Pulmonary Embolism Present on Admission: No
[2019-02-22 11:12] VITALS: BP 141/66; PULSE 58; RESP 14; TEMP 36.4; O2SAT 97
[2019-02-22] MEDS: LACTOBACILLUS ACIDOPHILUS TABLET 1 EACH PO (12:37)
--- NOTE | 2019-02-22 14:45 | PC.NURSE ---
Discharge pt denied pain this shift. PIV removed prior to d/c. Pt states she took all belongings with her. has offloading boot in place, SBA with FWW. d/c instructions provided to pt and her daughter. aware to f/u with ortho MD and make apt for fri. Will contact MD with any additional questions or concerns. left in w/c with RN escort to car with her daughter. Priority boarding pass for ferry [place] to [place] to cross home.
== END 2019-02-22 14:30 | disposition home or self-care (01) | DRG 571 ==
LOC: ED 23:10 → AC 23:42
PROVIDERS: Internal Medicine; Orthopaedic Surgery; Admitting Provider Nurse Practitioner Family; Emergency Provider Emergency Medicine; Visit Provider Nurse Practitioner Family
PROC: 0JBR0ZZ Excision of Left Foot Subcutaneous Tissue and Fascia, Open Approach (ICD-10-PCS; principal; 2019-02-18 17:30)
DX: L03.116 Cellulitis of left lower limb (principal); L02.612 Cutaneous abscess of left foot; M20.42 Other hammer toe(s) (acquired), left foot; Z87.891 Personal history of nicotine dependence; R73.9 Hyperglycemia, unspecified; B96.1 Klebsiella pneumoniae [K. pneumoniae] as the cause of diseases classified elsewhere; B96.20 Unspecified Escherichia coli [E. coli] as the cause of diseases classified elsewhere; B95.8 Unspecified staphylococcus as the cause of diseases classified elsewhere; B95.5 Unspecified streptococcus as the cause of diseases classified elsewhere; Z23 Encounter for immunization
CPT/HCPCS: 36415; 73630; 73720; 80048; 80202; 83036; 83605; 83735; 85025; 85651; 86140; 87040; 87070; 87075; 87077; 87147; 87186; 87205; 90471; 94760; 96365; 96366; 97116; 97161; 97530; 99283; 99284; 90715; A9579; J0692; J0744; J1650; J1885; J2405; J2704; J3010; J3370

== ENCOUNTER 2023-05-22 15:24 | Emergency (ER) | payer MEDICARE, OTHER, SELFPAY ==
[2021-02-01 14:30] VITALS: BMI 19.3
[2023-05-22] VITALS (12 sets, daily range): BP systolic 158–187; BP diastolic 70–123; PULSE 52–63; RESP 13–39; TEMP 36.8; O2SAT 94–100; BMI 20.5
--- NOTE | 2023-05-22 15:39 | DI.RAD.S_ITS ---
PROCEDURE: XR CHEST 1V INDICATIONS: confusion TECHNIQUE: One view of the chest was acquired. COMPARISON: [facility], CT, CT ANGIO HEAD AND NECK, 05/22/2023, 15:52. [facility], CT, CT HEAD/BRAIN WO CON, 05/22/2023, 15:52. FINDINGS: Surgical changes and devices: Right axillary clips are seen. Lungs and pleura: Lungs are clear, yet hyperexpanded. No pleural effusions or pneumothorax. Mediastinum: The cardiac contours are within normal limits. The aorta demonstrates calcification and tortuosity. Bones and chest wall: No suspicious bony lesions. Age-appropriate bony degenerative changes are seen. Overlying soft tissues appear unremarkable. IMPRESSION: Hyperexpanded lungs, without an acute cardiopulmonary process identified. Postoperative and degenerative changes are seen. Dictated by: Luis Manuel Briceno M.D. on 05/22/2023 at 15:24 Approved by: Luis Manuel Briceno M.D. on 05/22/2023 at 15:24
--- NOTE | 2023-05-22 15:39 | DI.CT.S_ITS ---
PROCEDURE: CT HEAD/BRAIN WO CON INDICATIONS: confusion, unknown onset TECHNIQUE: Noncontrast 4.5 mm thick angled axial sections acquired from the foramen magnum to the vertex, with coronal and sagittal reformats. For radiation dose reduction, the following was used: automated exposure control, adjustment of mA and/or kV according to patient size. COMPARISON: [facility], CT, CT ANGIO HEAD AND NECK, 05/22/2023, 15:52. [facility], CR, XR CHEST 1V, 05/22/2023, 15:55. FINDINGS: Image quality: Diagnostic. CSF spaces: Basal cisterns are patent. No extra-axial fluid collections. The ventricles are symmetric in size and shape. Brain: No intracranial bleeds or masses. There is cerebral volume loss for age, with resultant ventricular and sulcal prominence. There are periventricular and deep white matter chronic small vessel ischemic changes. There is intracranial internal carotid artery atherosclerosis. Skull and face: Calvarium and visualized facial bones appear intact, without suspicious lesions. Sinuses: Visualized sinuses and mastoids are clear. IMPRESSION: No acute intracranial pathology. If it would be helpful for clinical management decision making, please consider a dedicated, scheduled brain MRI for further evaluation (assuming that there is no contraindication). Dictated by: Luis Manuel Briceno M.D. on 05/22/2023 at 15:25 Approved by: Luis Manuel Briceno M.D. on 05/22/2023 at 15:25
--- NOTE | 2023-05-22 15:56 | PC.NURSE ---
Pt brought in via [facility] from [facility]. Reports from EMS daughter went to do a wellness check and noted that her speech was off a little more than usually. EMS completed a BEFAST negative. BS 87. 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 Pt has intermittent bouts of confusion. Example she stated one time that she was 68 years old, then when asked again 88 years old. She was able to answer all questions on stroke scale sheet one correctly without being difficulty.
[2023-05-22 15:57] LABS: Add Manual Diff / Slide Review NO; Basophils Absolute Auto 0 /uL (0-100); Basophils Percent Auto 0.7 % (0-2); Eosinophils Absolute Auto 0 /uL (0-450); Eosinophils Percent Auto 0.7 % (2-4); Hemoglobin 10.7 g/dL (12.0-16.0); Lymphocytes Absolute Auto 600 /uL (1100-4500); Lymphocytes Percent Auto 11.5 % (25-40); Mean Corpuscular HGB Conc 33.3 % (30-36); Mean Corpuscular Hemoglobin 29.6 PG (26-34); Mean Corpuscular Volume 88.7 fL (80-100); Monocytes Absolute Auto 1500 /uL (0-900); Monocytes Percent Auto 27.2 % (3-14); Neutrophils Absolute Auto 3300 /uL (1500-7000); Neutrophils Percent Auto 59.9 % (50-75); Platelet Count 85 X10^3/uL (150-400); Red Blood Cell Count 3.61 X10^6/uL (4.0-5.2); White Blood Cell Count 5.5 X10^3/uL (4.5-11.0)
--- NOTE | 2023-05-22 15:58 | DI.CT.S_ITS ---
PROCEDURE: CT ANGIO HEAD AND NECK INDICATIONS: confusion TECHNIQUE: After the administration of intravenous contrast, 1 mm thick sections acquired from the aortic arch through the [place]. 3-dimensional diriebj-dupaoxuzk-wyqidqwfrm (MIP) and/or volume rendering reformats were acquired of the central intracranial vasculature and neck separately. For radiation dose reduction, the following was used: automated exposure control, adjustment of mA and/or kV according to patient size. COMPARISON: [facility], CT, CT HEAD/BRAIN WO CON, 05/22/2023, 15:52. [facility], CR, XR CHEST 1V, 05/22/2023, 15:55. FINDINGS: Image quality: Diagnostic. BRAIN: CSF spaces: Ventricles are normal in size and shape. Basal cisterns are patent. No extra-axial fluid collections. Brain: No significant abnormality of the brain can be seen. Skull and face: Calvarium and facial bones appear intact, without suspicious lesions. Orbits appear normal. Sinuses: Sinuses and mastoids are clear. HEAD CT ANGIOGRAPHY: Anterior circulation: Intracranial internal carotid arteries are normal in size and flow. The flow within the paired anterior cerebral arteries is normal and symmetric. The flow within the middle cerebral arteries is normal and symmetric. The anterior communicating artery is seen. No aneurysms are seen. Posterior circulation: Visualized portions of the vertebral arteries demonstrate normal caliber, and join to form a normal appearing basilar artery. Flow within the posterior cerebral arteries is normal and symmetric. No aneurysms are seen. NECK CT ANGIOGRAPHY: Carotid system: The great vessels demonstrate a conventional anatomy as they arise from the aortic arch. The origins of the common carotid arteries appear patent. The common carotid arteries demonstrate normal caliber and courses. The bifurcation regions are both widely patent. The internal carotid arteries demonstrate normal calibers and courses. Posterior circulation: The origins of the vertebral arteries both appear widely patent. The more superior extracranial portions of both vertebral arteries also demonstrate normal courses and calibers. They join to form a normal appearing basilar artery. Soft tissues: Visualized neck soft tissues demonstrate no suspicious abnormalities. Right axillary clips can be seen. Bones: No suspicious bony lesions. Visualized cervical spine appears normally aligned. At least moderate cervical spine degenerative change can be seen. IMPRESSION: No significant intracranial arterial abnormality is seen. No significant abnormality is seen within the arteries of the neck. Additional findings: At least moderate cervical spine degenerative change Right axillary clips Any quantitative measurements of stenosis were performed using NASCET criteria. Dictated by: Luis Manuel Briceno M.D. on 05/22/2023 at 15:26 Approved by: Luis Manuel Briceno M.D. on 05/22/2023 at 15:28
[2023-05-22 16:05] LABS: Prothrombin Time 11.7 SECONDS (9.4-12.5)
[2023-05-22 16:08] LABS: PTT Partial Thromboplastin Tim 29 SECONDS (25.1-36.5)
[2023-05-22 16:11] LABS: Alanine Aminotransferase 24 IU/L (<35); Albumin 4.4 g/dL (3.5-5.0); Albumin Globulin Ratio 1.6 (1.0-2.8); Alkaline Phosphatase 87 U/L (38-126); Aspartate Aminotransferase 38 IU/L (14-36); BUN Creatinine Ratio 27.4 (6-22); Bilirubin Total 0.7 mg/dL (0.2-1.3); Blood Urea Nitrogen 17 mg/dL (7-17); COVID19 -Nasal RAPID Negative (Negative); Calcium 9.4 mg/dL (8.4-10.2); Carbon Dioxide 24 mmol/L (22-32); Chloride 108 mmol/L (98-107); Creatine Kinase 170 U/L (30-135); Estimated Glomerular Filt Rate > 60 mL/min (>60); Ethanol (ETOH) < 10 mg/dL; Globulin 2.7 g/dL (1.7-4.1); Glucose 95 mg/dL (80-110); HEMOLYSIS < 15 (0-50); Potassium 4.1 mmol/L (3.4-5.1); Sodium 138 mmol/L (137-145); Total Protein 7.1 g/dL (6.3-8.2)
[2023-05-22 16:22] LABS: Troponin I < 0.012 ng/mL (0.01-0.034)
[2023-05-22 16:23] LABS: Appearance Urine UA CLEAR; Bilirubin Urine UA NEGATIVE (NEGATIVE); Color Urine UA YELLOW; Glucose Urine UA NEGATIVE (Negative); Ketones Urine UA NEGATIVE (NEGATIVE); Leukocyte Esterase Urine UA 1+ (NEGATIVE); Nitrite Urine UA NEGATIVE (Negative); Occult Blood Urine UA 1+ (Negative); Protein Urine UA NEGATIVE (Negative); Specific Gravity Urine UA 1.015 (1.000-1.035); Urobilinogen Urine UA 0.2 E.U./dL (0.2)
[2023-05-22 16:30] LABS: UR Morphine/Opiate cutoff 300 Negative (Negative); Ur Creatinine Normal (Normal); Ur Specific Gravity Normal (Normal); Urine Amphetamines Negative (Negative); Urine Barbiturates Negative (Negative); Urine Benzodiazepines Negative (Negative); Urine Cocaine Negative (Negative); Urine MDMA Negative (Negative); Urine Methadone Negative (Negative); Urine Methamphetamines Negative (Negative); Urine Oxycodone Negative (Negative); Urine Phencyclidine Negative (Negative); Urine Tetrahydrocannabinol Negative (Negative); Urine Tricyclic Antidepressant Negative (Negative); Urine pH Normal (Normal)
[2023-05-22 16:35] LABS: RBC Urine 0-1/HPF (0-5/HPF); Urine Volume Low Vol <10mL (spun); WBC Urine 1-5/HPF (0-5/HPF)
[2023-05-22 16:36] LABS: Bacteria Urine Moderate (10-30); Culture Indicated Urine Specimen Cultured; Squamous Epithelial Cell Urine 0-1 /HPF (0-5/HPF); Transitional Epi Cells Urine 0-1/HPF (0-5/HPF)
--- NOTE | 2023-05-22 17:09 | ED.AMS ---
HPI - Altered Mental Status <Susan Alegre DO - Last Filed: 05/24/23 06:54> General Chief Complaint: Altered Mental Status Stated Complaint: AMS/Slurred speech Time Seen by Provider: 05/22/23 15:39 Source: EMS Mode of arrival: EMS History of Present Illness HPI narrative: Patient is a evelia 88-year-old female [place]. Daughter spoke to her on the phone was concern that she might be a little more confused than normal welfare check was done. Patient has no focal deficits slurring of speech facial droop she is able to follow commands. She has a bit confused about how old she is ultimately gets her age right. She is afebrile. She really has no complaints. Daughter finally at bedside reports that patient is very independent lives alone she is lots of children they all check on her. 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 Daughter noticed today that she was unable to fold piece of paper in thirds and put it in an envelope. She struggled for about 45 minutes unable to do. Now at bedside patient seems back to her normal self. Related Data Previous Rx's Medication Instructions Recorded calcipotriene 0.005 % topical cream 1 applic topical BID #120 grams 04/11/23 Allergies Allergy/AdvReac Type Severity Reaction Status Date / Time azithromycin Allergy Verified 04/19/23 09:29 Penicillins Allergy Verified 04/19/23 09:29 Patient History <Susan Alegre DO - Last Filed: 05/24/23 06:54> Medical History (Updated 05/22/23 @ 20:22 by Dago Meyers DO) Breast cancer Surgical History (Updated 10/03/21 @ 11:41 by Zhen Anaya MD) Total knee replacement status History of hip replacement Hx of appendectomy History of mastectomy Family History Mother CVA (cerebral vascular accident) Father Renal failure Alcoholism Social History household members: spouse and none Smoking Status: Former smoker Smoking Status: Former smoker alcohol intake frequency: 0-2 drinks per day Substance Use Type: does not use Exam <Susan Alegre DO - Last Filed: 05/24/23 06:54> Initial Vital Signs Initial Vital Signs: Vital Signs Temperature 98.2 F 05/22/23 15:29 Pulse Rate 62 05/22/23 15:29 Respiratory Rate 19 05/22/23 15:29 Blood Pressure 185/123 H 05/22/23 15:29 Pulse Oximetry 99 05/22/23 15:29 Oxygen Delivery Method Nasal Cannula 05/22/23 15:29 GENERAL: Alert very pleasant evelia 88-year-old and in [no acute] distress. HEENT: Head atraumatic,EOMI, pupils reactive, face symmetric, [moist] mucous membranes CARDIOVASCULAR: Regular rate and rhythm without murmurs, rubs or gallops. RESPIRATORY: Breath sounds equal bilaterally, no wheezes rales or rhonchi. ABDOMEN: Soft, nontender. Normoactive bowel sounds all 4 quadrants. No guarding or rebound. EXTREMITIES: Normal range of motion, no clubbing or edema. Neurovascularly intact NEUROLOGICAL: Alert and oriented x2.Normal gait and speech. Cranial nerves II through XII grossly intact. [Good quezqf-iv-zrkl, good gjav-at-yled, strength equal bilaterally, no dysarthria or aphasia, sensation in tact to soft touch bilaterally, no visual changes, no facial droop] SKIN: Warm, dry, no laceration, no petechiae, no rashes or lesions. <Dago Meyers, DO - Last Filed: 05/22/23 22:22> Initial Vital Signs Initial Vital Signs: Vital Signs Temperature 98.2 F 05/22/23 15:29 Pulse Rate 62 05/22/23 15:29 Respiratory Rate 19 05/22/23 15:29 Blood Pressure 185/123 H 05/22/23 15:29 Pulse Oximetry 99 05/22/23 15:29 Oxygen Delivery Method Nasal Cannula 05/22/23 15:29 Scores <Susan Alegre, DO - Last Filed: 05/24/23 06:54> NIH Stroke Scale Level of Conciousness: Alert, keenly responsive Ask month/age: Answers one question correctly, intubated follow commands Open/close eyes, close hand: Performs both tasks correctly Best gaze horizontal: Normal Visual stewart: No visual loss Facial palsy: Normal symetrical movement Left arm drift: No drift for full 10 sec Right arm drift: No drift for full 10 sec Left leg drift: No drift for full 5 sec Right leg drift: No drift for full 5 sec Limb ataxia: Absent Sensory on face/arms/legs: Normal, no sensory loss Best language: No aphasia, normal Dysarthria: Normal Extinction or inattention: No abnormality Total NIH Stroke scale score: 1 <Dago Meyers DO - Last Filed: 05/22/23 22:22> NIH Stroke Scale Total NIH Stroke scale score: 1 Course <Susan Alegre DO - Last Filed: 05/24/23 06:54> Orders Ordered: Discontinued Medications Aspirin (Aspirin Ec 325 Mg Tablet) 325 mg PO NOW ONE Stop: 05/22/23 20:22 Last Admin: 05/22/23 20:26 Dose: 325 mg Documented By: BLANCHE Ceftriaxone Sodium 1,000 mg/ (Sodium Chloride) 100 mls @ 200 mls/hr IV NOW ONE Stop: 05/22/23 17:18 Last Infusion: 05/22/23 18:34 Dose: Infused Documented By: Admin: 05/22/23 17:34 Dose: 200 mls/hr Documented By: Vital Signs Vital signs: Vital Signs - 8 hr 05/22/23 15:29 05/22/23 15:31 05/22/23 16:00 Temperature 98.2 F Pulse Rate 62 60 58 L Respiratory Rate 19 18 13 Blood Pressure 185/123 H Pulse Oximetry 99 94 98 Oxygen Delivery Method Nasal Cannula 05/22/23 16:30 05/22/23 17:00 05/22/23 17:30 Temperature Pulse Rate 52 L 56 L 55 L Respiratory Rate 39 H 31 H 26 H Blood Pressure Pulse Oximetry 96 99 100 Oxygen Delivery Method 05/22/23 18:00 05/22/23 18:30 05/22/23 18:30 Temperature Pulse Rate 61 62 Respiratory Rate 25 H 26 H Blood Pressure 187/88 H Pulse Oximetry 99 99 Oxygen Delivery Method 05/22/23 19:12 05/22/23 19:13 05/22/23 19:13 Temperature Pulse Rate 63 61 Respiratory Rate 28 H 23 Blood Pressure 158/70 H Pulse Oximetry 98 95 Oxygen Delivery Method 05/22/23 19:27 05/22/23 20:39 Temperature Pulse Rate 54 L 56 L Respiratory Rate 22 18 Blood Pressure 168/77 H Pulse Oximetry 96 99 Oxygen Delivery Method Room Air <Dago Meyers DO - Last Filed: 05/22/23 22:22> Orders Ordered: Discontinued Medications Aspirin (Aspirin Ec 325 Mg Tablet) 325 mg PO NOW ONE Stop: 05/22/23 20:22 Last Admin: 05/22/23 20:26 Dose: 325 mg Documented By: BLANCHE Ceftriaxone Sodium 1,000 mg/ (Sodium Chloride) 100 mls @ 200 mls/hr IV NOW ONE Stop: 05/22/23 17:18 Last Infusion: 05/22/23 18:34 Dose: Infused Documented By: Admin: 05/22/23 17:34 Dose: 200 mls/hr Documented By: Vital Signs Vital signs: Vital Signs - 8 hr 05/22/23 15:29 05/22/23 15:31 05/22/23 16:00 Temperature 98.2 F Pulse Rate 62 60 58 L Respiratory Rate 19 18 13 Blood Pressure 185/123 H Pulse Oximetry 99 94 98 Oxygen Delivery Method Nasal Cannula 05/22/23 16:30 05/22/23 17:00 05/22/23 17:30 Temperature Pulse Rate 52 L 56 L 55 L Respiratory Rate 39 H 31 H 26 H Blood Pressure Pulse Oximetry 96 99 100 Oxygen Delivery Method 05/22/23 18:00 05/22/23 18:30 05/22/23 18:30 Temperature Pulse Rate 61 62 Respiratory Rate 25 H 26 H Blood Pressure 187/88 H Pulse Oximetry 99 99 Oxygen Delivery Method 05/22/23 19:12 05/22/23 19:13 05/22/23 19:13 Temperature Pulse Rate 63 61 Respiratory Rate 28 H 23 Blood Pressure 158/70 H Pulse Oximetry 98 95 Oxygen Delivery Method 05/22/23 19:27 05/22/23 20:39 Temperature Pulse Rate 54 L 56 L Respiratory Rate 22 18 Blood Pressure 168/77 H Pulse Oximetry 96 99 Oxygen Delivery Method Room Air MDM - Altered Mental Status <Susan Alegre, DO - Last Filed: 05/24/23 06:54> Lab Data 05/22/23 15:45 05/22/23 15:45 Labs: Lab Results 05/22/23 05/22/23 05/22/23 Range/Units 15:45 16:10 16:10 WBC 5.5 (4.5-11.0) X10^3/uL RBC 3.61 L (4.0-5.2) X10^6/uL Hgb 10.7 L (12.0-16.0) g/dL Hct 32.0 L (36-46) % MCV 88.7 (80-100) fL MCH 29.6 (26-34) PG MCHC 33.3 (30-36) % RDW 16.0 H (11.6-14.8) % Plt Count 85 L (150-400) X10^3/uL Neut % (Auto) 59.9 (50-75) % Lymph % (Auto) 11.5 L (25-40) % [place] % (Auto) 27.2 H (3-14) % Eos % (Auto) 0.7 L (2-4) % Baso % (Auto) 0.7 (0-2) % Neut # (Auto) 3300 (3991-3933) /uL Lymph # (Auto) 600 L (8861-6889) /uL [place] # (Auto) 1500 H (0-900) /uL Eos # (Auto) 0 (0-450) /uL Baso # (Auto) 0 (0-100) /uL PT 11.7 (9.4-12.5) SECONDS INR 1.0 (0.9-1.3) APTT 29 (25.1-36.5) SECONDS Sodium 138 (137-145) mmol/L Potassium 4.1 (3.4-5.1) mmol/L Chloride 108 H (98-107) mmol/L Carbon Dioxide 24 (22-32) mmol/L BUN 17 (7-17) mg/dL Creatinine 0.62 (0.52-1.04) mg/dL Estimated GFR > 60 (>60) mL/min BUN/Creatinine Ratio 27.4 H (6-22) Glucose 95 (80-110) mg/dL Lactate 1.0 (0.7-2.1) mmol/L Calcium 9.4 (8.4-10.2) mg/dL Total Bilirubin 0.7 (0.2-1.3) mg/dL AST 38 H (14-36) IU/L ALT 24 (<35) IU/L Alkaline Phosphatase 87 (38-126) U/L Total Creatine Kinase 170 H (30-135) U/L Troponin I < 0.012 (0.01-0.034) ng/mL Total Protein 7.1 (6.3-8.2) g/dL Albumin 4.4 (3.5-5.0) g/dL Globulin 2.7 (1.7-4.1) g/dL Albumin/Globulin Ratio 1.6 (1.0-2.8) TSH 1.37 (0.47-4.68) uIU/mL Urine Color Yellow Urine Appearance Clear Urine pH 6.0 Normal (4.5-8.0) Ur Specific [place] 1.015 (1.000-1.035) Urine Protein Negative (Negative) Urine Glucose (UA) Negative (Negative) g/dL Urine Ketones Negative (NEGATIVE) Urine Occult Blood 1+ H (Negative) Urine Nitrate Negative (Negative) Urine Bilirubin Negative (NEGATIVE) Urine Urobilinogen 0.2 (0.2) E.U./dL Ur Leukocyte Esterase 1+ H (NEGATIVE) Urine RBC 0-1/hpf (0-5/HPF) Urine WBC 1-5/hpf (0-5/HPF) Ur Squamous Epith Cells 0-1 /hpf (0-5/HPF) Ur Transition Epith Cell 0-1/hpf (0-5/HPF) Urine Bacteria Moderate (10-30) H (None) Ur Culture Indicated? Specimen cultured Vol Urine Centrifuged Low vol <10ml (spun) A U Opiates 300ng/mL cut Negative (Negative) Ur Oxycodone Screen Negative (Negative) Urine Methadone Screen Negative (Negative) Ur Barbiturates Screen Negative (Negative) U Tricyclic Antidepress Negative (Negative) Ur Phencyclidine Scrn Negative (Negative) Ur Amphetamines Screen Negative (Negative) U Methamphetamines Scrn Negative (Negative) Ur MDMA Scrn (Ecstasy) Negative (Negative) U Benzodiazepines Scrn Negative (Negative) Urine Cocaine Screen Negative (Negative) U Marijuana (THC) Screen Negative (Negative) Urine Specific [place] Normal (Normal) Ethyl Alcohol < 10 ( - 10) mg/dL Ur Creatinine Normal (Normal) SARS-CoV-2 (PCR) Negative (Negative) Point of Care Testing Glucose POC [address] scan - head: Radiologist's Impression: PROCEDURE: CT HEAD/BRAIN WO CON INDICATIONS: confusion, unknown onset TECHNIQUE: Noncontrast 4.5 mm thick angled axial sections acquired from the foramen magnum to the vertex, with coronal and sagittal reformats. For radiation dose reduction, the following was used: automated exposure control, adjustment of mA and/or kV according to patient size. COMPARISON: [facility], CT, CT ANGIO HEAD AND NECK, 05/22/2023, 15:52. [facility], CR, XR CHEST 1V, 05/22/2023, 15:55. FINDINGS: Image quality: Diagnostic. CSF spaces: Basal cisterns are patent. No extra-axial fluid collections. The ventricles are symmetric in size and shape. Brain: No intracranial bleeds or masses. There is cerebral volume loss for age, with resultant ventricular and sulcal prominence. There are periventricular and deep white matter chronic small vessel ischemic changes. There is intracranial internal carotid artery atherosclerosis. Skull and face: Calvarium and visualized facial bones appear intact, without suspicious lesions. Sinuses: Visualized sinuses and mastoids are clear. IMPRESSION: No acute intracranial pathology. If it would be helpful for clinical management decision making, please consider a dedicated, scheduled brain MRI for further evaluation (assuming that there is no contraindication). Dictated by: Luis Manuel Briceno M.D. on 05/22/2023 at 15:25 CTA - brain/neck: Radiologist's Impression: PROCEDURE: CT ANGIO HEAD AND NECK INDICATIONS: confusion TECHNIQUE: After the administration of intravenous contrast, 1 mm thick sections acquired from the aortic arch through the [place] of [place]. 3-dimensional yolkskz-rvjwcwepi-ribgdvhlqn (MIP) and/or volume rendering reformats were acquired of the central intracranial vasculature and neck separately. For radiation dose reduction, the following was used: automated exposure control, adjustment of mA and/or kV according to patient size. COMPARISON: [facility], CT, CT HEAD/BRAIN WO CON, 05/22/2023, 15:52. [facility], CR, XR CHEST 1V, 05/22/2023, 15:55. FINDINGS: Image quality: Diagnostic. BRAIN: CSF spaces: Ventricles are normal in size and shape. Basal cisterns are patent. No extra-axial fluid collections. Brain: No significant abnormality of the brain can be seen. Skull and face: Calvarium and facial bones appear intact, without suspicious lesions. Orbits appear normal. Sinuses: Sinuses and mastoids are clear. HEAD CT ANGIOGRAPHY: Anterior circulation: Intracranial internal carotid arteries are normal in size and flow. The flow within the paired anterior cerebral arteries is normal and symmetric. The flow within the middle cerebral arteries is normal and symmetric. The anterior communicating artery is seen. No aneurysms are seen. Posterior circulation: Visualized portions of the vertebral arteries demonstrate normal caliber, and join to form a normal appearing basilar artery. Flow within the posterior cerebral arteries is normal and symmetric. No aneurysms are seen. NECK CT ANGIOGRAPHY: Carotid system: The great vessels demonstrate a conventional anatomy as they arise from the aortic arch. The origins of the common carotid arteries appear patent. The common carotid arteries demonstrate normal caliber and courses. The bifurcation regions are both widely patent. The internal carotid arteries demonstrate normal calibers and courses. Posterior circulation: The origins of the vertebral arteries both appear widely patent. The more superior extracranial portions of both vertebral arteries also demonstrate normal courses and calibers. They join to form a normal appearing basilar artery. Soft tissues: Visualized neck soft tissues demonstrate no suspicious abnormalities. Right axillary clips can be seen. Bones: No suspicious bony lesions. Visualized cervical spine appears normally aligned. At least moderate cervical spine degenerative change can be seen. IMPRESSION: No significant intracranial arterial abnormality is seen. No significant abnormality is seen within the arteries of the neck. Additional findings: At least moderate cervical spine degenerative change Right axillary clips Any quantitative measurements of stenosis were performed using NASCET criteria. Dictated by: Luis Manuel Briceno M.D. on 05/22/2023 at 15:26 Approved by: Luis Manuel Briceno M.D. on 05/22/2023 at 15:2 Chest x-ray: Radiologist's Impression: PROCEDURE: XR CHEST 1V INDICATIONS: confusion TECHNIQUE: One view of the chest was acquired. COMPARISON: [facility], CT, CT ANGIO HEAD AND NECK, 05/22/2023, 15:52. [facility], CT, CT HEAD/BRAIN WO CON, 05/22/2023, 15:52. FINDINGS: Surgical changes and devices: Right axillary clips are seen. Lungs and pleura: Lungs are clear, yet hyperexpanded. No pleural effusions or pneumothorax. Mediastinum: The cardiac contours are within normal limits. The aorta demonstrates calcification and tortuosity. Bones and chest wall: No suspicious bony lesions. Age-appropriate bony degenerative changes are seen. Overlying soft tissues appear unremarkable. IMPRESSION: Hyperexpanded lungs, without an acute cardiopulmonary process identified. Postoperative and degenerative changes are seen. Dictated by: Luis Manuel Briceno M.D. on 05/22/2023 at 15:24 ECG Data Interpretation: Sinus rhythm rate 54 TX interval 152 QRS [address] changes no T-wave inversions MDM Narrative Medical decision making narrative: Patient 88-year-old female presents today with confusion no real focal deficits. Last known well is unknown. Low concern for stroke. Blood work reviewed no leukocytosis, no electrolyte abnormality no SENIA, urinalysis does show moderate bacteria with 1+ leukocytes no squamous cell low volume mount possible UTI Imaging has been reviewed: CT head and angio head and neck chest x-ray no acute abnormality Patient is able to have conversation does not seem significantly confused. Possibly a minor UTI but no evidence of sepsis. She is afebrile without leukocytosis. Patient is back to baseline. She is actually able to fold a piece of paper. After speaking with the daughter who finally came there is concern for possible TIA. I discussed this with daughter and patient. Symptoms quickly resolved and unlikely this is UTI related. Disscussed at length admission versus going home. Patient and family would like to go home. A daughter can spend the night with her. MRI is ordered Patient signed out to Dr. Mira Meyers: Received turned over. Review patient's history and physical exam. MRI shows no acute stroke. Patient is at baseline. Had a discussion with the patient regarding her symptoms. We did discuss TIA. There was no indication of acute strokes. Patient desires to be discharged home. Will start on an aspirin. Will have her contact her primary doctor to discuss further workup. She was given return precautions. Both her and daughter at bedside expressed understanding and agreement. <Dago Meyers, DO - Last Filed: 05/22/23 22:22> Lab Data Labs: Lab Results 05/22/23 05/22/23 05/22/23 Range/Units 15:45 16:10 16:10 WBC 5.5 (4.5-11.0) X10^3/uL RBC 3.61 L (4.0-5.2) X10^6/uL Hgb 10.7 L (12.0-16.0) g/dL Hct 32.0 L (36-46) % MCV 88.7 (80-100) fL MCH 29.6 (26-34) PG MCHC 33.3 (30-36) % RDW 16.0 H (11.6-14.8) % Plt Count 85 L (150-400) X10^3/uL Neut % (Auto) 59.9 (50-75) % Lymph % (Auto) 11.5 L (25-40) % [place] % (Auto) 27.2 H (3-14) % Eos % (Auto) 0.7 L (2-4) % Baso % (Auto) 0.7 (0-2) % Neut # (Auto) 3300 (1163-6322) /uL Lymph # (Auto) 600 L (5702-2521) /uL [place] # (Auto) 1500 H (0-900) /uL Eos # (Auto) 0 (0-450) /uL Baso # (Auto) 0 (0-100) /uL PT 11.7 (9.4-12.5) SECONDS INR 1.0 (0.9-1.3) APTT 29 (25.1-36.5) SECONDS Sodium 138 (137-145) mmol/L Potassium 4.1 (3.4-5.1) mmol/L Chloride 108 H (98-107) mmol/L Carbon Dioxide 24 (22-32) mmol/L BUN 17 (7-17) mg/dL Creatinine 0.62 (0.52-1.04) mg/dL Estimated GFR > 60 (>60) mL/min BUN/Creatinine Ratio 27.4 H (6-22) Glucose 95 (80-110) mg/dL Lactate 1.0 (0.7-2.1) mmol/L Calcium 9.4 (8.4-10.2) mg/dL Total Bilirubin 0.7 (0.2-1.3) mg/dL AST 38 H (14-36) IU/L ALT 24 (<35) IU/L Alkaline Phosphatase 87 (38-126) U/L Total Creatine Kinase 170 H (30-135) U/L Troponin I < 0.012 (0.01-0.034) ng/mL Total Protein 7.1 (6.3-8.2) g/dL Albumin 4.4 (3.5-5.0) g/dL Globulin 2.7 (1.7-4.1) g/dL Albumin/Globulin Ratio 1.6 (1.0-2.8) TSH 1.37 (0.47-4.68) uIU/mL Urine Color Yellow Urine Appearance Clear Urine pH 6.0 Normal (4.5-8.0) Ur Specific [place] 1.015 (1.000-1.035) Urine Protein Negative (Negative) Urine Glucose (UA) Negative (Negative) g/dL Urine Ketones Negative (NEGATIVE) Urine Occult Blood 1+ H (Negative) Urine Nitrate Negative (Negative) Urine Bilirubin Negative (NEGATIVE) Urine Urobilinogen 0.2 (0.2) E.U./dL Ur Leukocyte Esterase 1+ H (NEGATIVE) Urine RBC 0-1/hpf (0-5/HPF) Urine WBC 1-5/hpf (0-5/HPF) Ur Squamous Epith Cells 0-1 /hpf (0-5/HPF) Ur Transition Epith Cell 0-1/hpf (0-5/HPF) Urine Bacteria Moderate (10-30) H (None) Ur Culture Indicated? Specimen cultured Vol Urine Centrifuged Low vol <10ml (spun) A U Opiates 300ng/mL cut Negative (Negative) Ur Oxycodone Screen Negative (Negative) Urine Methadone Screen Negative (Negative) Ur Barbiturates Screen Negative (Negative) U Tricyclic Antidepress Negative (Negative) Ur Phencyclidine Scrn Negative (Negative) Ur Amphetamines Screen Negative (Negative) U Methamphetamines Scrn Negative (Negative) Ur MDMA Scrn (Ecstasy) Negative (Negative) U Benzodiazepines Scrn Negative (Negative) Urine Cocaine Screen Negative (Negative) U Marijuana (THC) Screen Negative (Negative) Urine Specific [place] Normal (Normal) Ethyl Alcohol < 10 ( - 10) mg/dL Ur Creatinine Normal (Normal) SARS-CoV-2 (PCR) Negative (Negative) Point of Care Testing Glucose POC 87 Imaging Data MRI brain: Radiologist's Impression: PROCEDURE: MR HEAD/BRAIN WO CON INDICATIONS: TIA TECHNIQUE: Non-contrast axial T1 spin echo, axial T2 fast spin echo, sagittal and axial FLAIR, coronal T2 fast spin echo, axial gradient echo, axial diffusion and ADC through the brain. COMPARISON: [facility], CT, CT HEAD/BRAIN WO CON, 05/22/2023, 15:52. FINDINGS: Image quality: Excellent. CSF spaces: Ventricles appear symmetric in size and shape. Basal cisterns are patent. No extra-axial fluid collections. Brain: No intracranial bleeds or mass effects. There is cerebral volume loss for age. There are periventricular and deep white matter chronic small vessel ischemic changes. Brainstem appears normal. Diffusion-weighted images show no acute infarct. No chronic ischemic insults. Normal intravascular flow voids are present. Skull and face: Calvarial bone marrow is normal in signal. Orbits are normal. Sinuses: Sinuses and mastoids are clear. IMPRESSION: 1. No acute infarction. No intracranial bleed, midline shift or mass effect. 2. Age related volume loss and mild periventricular and deep white matter chronic small vessel ischemic changes. [facility] Narrative Medical decision making narrative: Patient 88-year-old female presents today with confusion no real focal deficits. Last known well is unknown. Low concern for stroke. Blood work reviewed no leukocytosis, no electrolyte abnormality no SENIA, urinalysis does show moderate bacteria with 1+ leukocytes no squamous cell low volume mount possible UTI Imaging has been reviewed: CT head and angio head and neck chest x-ray no acute abnormality Patient is able to have conversation does not seem significantly confused. Possibly a minor UTI but no evidence of sepsis. She is afebrile without leukocytosis. Patient is back to baseline. She is actually able to hold a piece of paper. After speaking with the daughter who finally came there is concern for possible TIA. I discussed this with daughter and patient. Symptoms quickly resolved and unlikely this is UTI related. MRI is ordered Patient and family would like to go home. I daughter can spend the night with her. Patient signed out to Dr. Mira Meyers: Received turned over. Review patient's history and physical exam. MRI shows no acute stroke. Patient is at baseline. Had a discussion with the patient regarding her symptoms. We did discuss TIA. There was no indication of acute strokes. Patient desires to be discharged home. Will start on an aspirin. Will have her contact her primary doctor to discuss further workup. She was given return precautions. Both her and daughter at bedside expressed understanding and agreement. Discharge Plan Departure Patient Disposition: Home Clinical Impression: TIA (transient ischemic attack) Instructions: DI for Transient Ischemic Attack Activity Restrictions/Additional Instructions: Recommend that you start taking a daily aspirin. Also recommend that you contact your primary care doctor for a follow-up. Return to the emergency department for new or worsening symptoms. Prescriptions: No Action calcipotriene 0.005 % cream 1 applic topical BID Qty: 120 0RF Rx Instructions: Apply twice daily with Efudex twice daily for 6 days Referrals: Zhen Anaya MD [Primary Care Provider] - Stand Alone Forms: Patient Portal/API
[2023-05-22 17:16] LABS: Thyroid Stimulating Hormone 1.37 uIU/mL (0.47-4.68)
[2023-05-22] MEDS: cefTRIAXone 1,000 MG in SODIUM CHLORIDE 0.9% 100 ML 200 MG IV (17:34)
--- NOTE | 2023-05-22 18:35 | DI.MRI.S_ITS ---
PROCEDURE: MR HEAD/BRAIN WO CON INDICATIONS: TIA TECHNIQUE: Non-contrast axial T1 spin echo, axial T2 fast spin echo, sagittal and axial FLAIR, coronal T2 fast spin echo, axial gradient echo, axial diffusion and ADC through the brain. COMPARISON: [facility], CT, CT HEAD/BRAIN WO CON, 05/22/2023, 15:52. FINDINGS: Image quality: Excellent. CSF spaces: Ventricles appear symmetric in size and shape. Basal cisterns are patent. No extra-axial fluid collections. Brain: No intracranial bleeds or mass effects. There is cerebral volume loss for age. There are periventricular and deep white matter chronic small vessel ischemic changes. Brainstem appears normal. Diffusion-weighted images show no acute infarct. No chronic ischemic insults. Normal intravascular flow voids are present. Skull and face: Calvarial bone marrow is normal in signal. Orbits are normal. Sinuses: Sinuses and mastoids are clear. IMPRESSION: 1. No acute infarction. No intracranial bleed, midline shift or mass effect. 2. Age related volume loss and mild periventricular and deep white matter chronic small vessel ischemic changes. Dictated by: Matt Jordan M.D. on 05/22/2023 at 20:09 Approved by: Matt Jordan M.D. on 05/22/2023 at 20:09
--- NOTE | 2023-05-22 20:16 | PC.NURSE ---
Dr Meyers in to talk with pt about results
[2023-05-22] MEDS: ASPIRIN EC 325 MG TABLET PO (20:26)
== END 2023-05-22 20:41 | disposition home or self-care (01) ==
PROVIDERS: Emergency Medicine; Emergency Provider Emergency Medicine; PCP Family Medicine
DX: G45.9 Transient cerebral ischemic attack, unspecified (principal); R29.701 NIHSS score 1; Z20.822 Contact with and (suspected) exposure to COVID-19
CPT/HCPCS: 36415; 70450; 70496; 70498; 70551; 71045; 80053; 80305; 80320; 81001; 82550; 83605; 84443; 84484; 85025; 85610; 85730; 87086; 87635; 93005; 96365; 99285; J0696

== ENCOUNTER 2023-10-11 14:11 | Inpatient (IN) | payer MEDICARE, OTHER, SELFPAY ==
[2021-02-01 14:30] VITALS: BMI 19.3
[2023-10-11] VITALS (25 sets, daily range): BP systolic 153–181; BP diastolic 67–78; PULSE 58–72; RESP 16–18; TEMP 36.6–36.9; O2SAT 89–100
[2023-10-11 15:00] LABS: Hematocrit 23.9 % (36-46); Hemoglobin 7.4 g/dL (12.0-16.0); INR 1.1 (0.9-1.3); Mean Corpuscular HGB Conc 30.9 % (30-36); Mean Corpuscular Hemoglobin 23.7 PG (26-34); Mean Corpuscular Volume 76.8 fL (80-100); Platelet Count 111 X10^3/uL (150-400); Prothrombin Time 12.7 SECONDS (9.4-12.5); Red Blood Cell Count 3.11 X10^6/uL (4.0-5.2); Red Cell Distribution Width 18.7 % (11.6-14.8)
[2023-10-11 15:01] LABS: Add Manual Diff / Slide Review YES
[2023-10-11 15:03] LABS: PTT Partial Thromboplastin Tim 33 SECONDS (25.1-36.5)
[2023-10-11 15:06] LABS: Alanine Aminotransferase 20 IU/L (<35); Albumin Globulin Ratio 1.7 (1.0-2.8); Alkaline Phosphatase 102 U/L (38-126); Aspartate Aminotransferase 30 IU/L (14-36); Bilirubin Total 0.7 mg/dL (0.2-1.3); Blood Urea Nitrogen 17 mg/dL (7-17); Calcium 8.6 mg/dL (8.4-10.2); Carbon Dioxide 23 mmol/L (22-32); Chloride 112 mmol/L (98-107); Estimated Glomerular Filt Rate > 60 mL/min (>60); Globulin 2.4 g/dL (1.7-4.1); Glucose 95 mg/dL (80-110); HEMOLYSIS < 15 (0-50); Potassium 3.8 mmol/L (3.4-5.1); Sodium 140 mmol/L (137-145); Total Protein 6.4 g/dL (6.3-8.2)
[2023-10-11 15:21] LABS: Anisocytosis 2+; Neutrophils Absolute Manual 3050 /uL (3000-5900); Total Cells Counted 100
[2023-10-11] MEDS: PANTOPRAZOLE 40 MG VIAL 80 MG IV (16:00)
[2023-10-11 18:54] LABS: Appearance Urine UA CLEAR; Bilirubin Urine UA NEGATIVE (NEGATIVE); Color Urine UA YELLOW; Glucose Urine UA NEGATIVE (Negative); Ketones Urine UA NEGATIVE (NEGATIVE); Leukocyte Esterase Urine UA NEGATIVE (NEGATIVE); Nitrite Urine UA NEGATIVE (Negative); Occult Blood Urine UA NEGATIVE (Negative); Protein Urine UA NEGATIVE (Negative); Specific Gravity Urine UA 1.015 (1.000-1.035); Urobilinogen Urine UA 0.2 E.U./dL (0.2)
[2023-10-11 19:13] LABS: Bacteria Urine Occasional (0-1); Culture Indicated Urine Cult Not Indicated; RBC Urine None Seen (0-5/HPF); Squamous Epithelial Cell Urine 0-1 /HPF (0-5/HPF); Urine Volume 10mL (spun); WBC Urine None Seen (0-5/HPF)
--- NOTE | 2023-10-11 19:27 | ED_ITS ---
HPI - GI Bleed General Chief complaint: GI Bleed Stated complaint: needs blood transfussion Time Seen by Provider: 10/11/23 17:55 Source: patient and family Mode of arrival: Wheelchair History of Present Illness HPI Narrative: Has been is an 88-year-old female. Not on anticoagulation who is here for evaluation of several days of persistent bright red blood per rectum. This is actually been something that has been going on for the past several weeks. She saw her primary doctor in the office today. Had a fingerstick blood counts done which showed a hemoglobin of less than 6. She was sent to the emergency department for blood transfusion. Here in the ER she does report that she has been very fatigued with exertion. Some shortness of breath with the exertion as well. Lightheaded with standing. This has been going on for the past couple days as well. She denies any abdominal pain. No blood in her urine. No fever. No vomiting. Related Data Previous Rx's Medication Instructions Recorded quetiapine 25 mg tablet (Seroquel) 25 mg PO BID #60 tabs 06/28/23 Allergies Allergy/AdvReac Type Severity Reaction Status Date / Time azithromycin Allergy Verified 10/11/23 11:17 Penicillins Allergy Verified 06/28/23 09:06 Review of Systems Review of Systems ROS Unobtainable: All systems reviewed & are unremarkable except as noted in HPI and below Patient History Medical History Breast cancer Surgical History (Updated 06/28/23 @ 06:55 by Zhen Anaya MD) Total knee replacement status History of hip replacement Hx of appendectomy History of mastectomy Family History Mother CVA (cerebral vascular accident) Father Renal failure Alcoholism Social History household members: spouse and none Smoking Status: Former smoker Smoking Status: Former smoker alcohol intake frequency: 0-2 drinks per day Substance Use Type: does not use Exam Initial Vital Signs Initial Vital Signs: Vital Signs Temperature 98.4 F 10/11/23 14:13 Pulse Rate 64 10/11/23 14:13 Respiratory Rate 18 10/11/23 14:13 Blood Pressure 177/77 H 10/11/23 14:13 Pulse Oximetry 99 10/11/23 14:13 Oxygen Delivery Method Room Air 10/11/23 14:13 Const General: cooperative, comfortable and No ill appearing HENMT Head: normal to inspection Resp Effort & Inspection: normal respiratory effort Auscultation: clear to auscultation bilaterally Cardio Rate: regular rate Rhythm: regular rhythm GI Inspection: normal to inspection and non-distended Neuro General: patient alert and patient awake Extrem General: normal to inspection Course Orders Ordered: ED Orders 10/11/23 18:35 Urinalysis and Microscopic Stat 10/11/23 23:03 Consult to General Surgery Stat 10/11/23 23:30 Hemoglobin and Hematocrit Stat Ondansetron HCl (Ondansetron 4 Mg/2 Ml Inj) 4 mg IV NOW PRN PRN Reason: Nausea And Vomiting Ondansetron HCl (Ondansetron 4 Mg Odt) 4 mg SL NOW PRN PRN Reason: Nausea And Vomiting Discontinued Medications Pantoprazole Sodium (Pantoprazole 40 Mg Vial) 80 mg IV NOW ONE Stop: 10/11/23 14:19 Last Admin: 10/11/23 16:00 Dose: 80 mg Documented By: POLLY Vital Signs Vital signs: Vital Signs - 8 hr 10/11/23 16:01 10/11/23 16:30 10/11/23 17:00 Temperature Pulse Rate 60 60 60 Respiratory Rate Blood Pressure Pulse Oximetry 89 L 100 100 10/11/23 17:30 10/11/23 18:00 10/11/23 18:06 Temperature Pulse Rate 62 64 64 Respiratory Rate Blood Pressure Pulse Oximetry 100 100 100 10/11/23 18:06 10/11/23 18:30 10/11/23 18:40 Temperature Pulse Rate 63 Respiratory Rate Blood Pressure 160/71 H 181/78 H Pulse Oximetry 100 10/11/23 18:40 10/11/23 19:00 10/11/23 19:30 Temperature Pulse Rate 72 62 64 Respiratory Rate Blood Pressure Pulse Oximetry 100 99 99 10/11/23 20:00 10/11/23 20:09 10/11/23 20:10 Temperature 98.5 F Pulse Rate 62 62 Respiratory Rate 18 Blood Pressure 174/68 H 174/68 H Pulse Oximetry 99 10/11/23 20:10 10/11/23 20:25 10/11/23 20:30 Temperature 98.3 F Pulse Rate 62 62 61 Respiratory Rate 18 Blood Pressure 160/72 H Pulse Oximetry 99 98 10/11/23 20:32 10/11/23 20:32 10/11/23 21:00 Temperature Pulse Rate 61 62 Respiratory Rate 18 Blood Pressure 160/72 H Pulse Oximetry 97 98 10/11/23 22:00 10/11/23 22:30 10/11/23 23:00 Temperature Pulse Rate 61 66 58 L Respiratory Rate 18 Blood Pressure Pulse Oximetry 98 97 97 10/11/23 23:02 10/11/23 23:02 10/11/23 23:10 Temperature 97.9 F Pulse Rate 61 58 L Respiratory Rate 16 Blood Pressure 154/70 H 154/70 H Pulse Oximetry 97 MDM - GI Bleed Medical Records Attestation: I reviewed the patient's medical records. Lab Data Attestation: I reviewed the patient's lab results. 10/11/23 14:37 10/11/23 14:37 Labs: Lab Results 10/11/23 10/11/23 Range/Units 14:37 18:35 WBC 5.0 (4.5-11.0) X10^3/uL RBC 3.11 L (4.0-5.2) X10^6/uL Hgb 7.4 L (12.0-16.0) g/dL Hct 23.9 L (36-46) % MCV 76.8 L (80-100) fL MCH 23.7 L (26-34) PG MCHC 30.9 (30-36) % RDW 18.7 H (11.6-14.8) % Plt Count 111 L (150-400) X10^3/uL Neut % (Auto) Not Reportable Lymph % (Auto) Not Reportable [place] % (Auto) Not Reportable Eos % (Auto) Not Reportable Baso % (Auto) Not Reportable Lymph # (Auto) Not Reportable [place] # (Auto) Not Reportable Baso # (Auto) Not Reportable Total Counted 100 Seg Neutrophils % 61.0 (38-70) % Lymphocytes % (Manual) 23.0 L (25-45) % Monocytes % (Manual) 16.0 H (2-11) % Neutrophils # (Manual) 3050 (6343-1810) /uL RBC Morphology See below Anisocytosis 2+ H PT 12.7 H (9.4-12.5) SECONDS INR 1.1 (0.9-1.3) APTT 33 (25.1-36.5) SECONDS Sodium 140 (137-145) mmol/L Potassium 3.8 (3.4-5.1) mmol/L Chloride 112 H (98-107) mmol/L Carbon Dioxide 23 (22-32) mmol/L BUN 17 (7-17) mg/dL Creatinine 0.63 (0.52-1.04) mg/dL Estimated GFR > 60 (>60) mL/min BUN/Creatinine Ratio 27.0 H (6-22) Glucose 95 (80-110) mg/dL Calcium 8.6 (8.4-10.2) mg/dL Total Bilirubin 0.7 (0.2-1.3) mg/dL AST 30 (14-36) IU/L ALT 20 (<35) IU/L Alkaline Phosphatase 102 (38-126) U/L Total Protein 6.4 (6.3-8.2) g/dL Albumin 4.0 (3.5-5.0) g/dL Globulin 2.4 (1.7-4.1) g/dL Albumin/Globulin Ratio 1.7 (1.0-2.8) Urine Color Yellow Urine Appearance Clear Urine pH 6.0 (4.5-8.0) Ur Specific [place] 1.015 (1.000-1.035) Urine Protein Negative (Negative) Urine Glucose (UA) Negative (Negative) g/dL Urine Ketones Negative (NEGATIVE) Urine Occult Blood Negative (Negative) Urine Nitrate Negative (Negative) Urine Bilirubin Negative (NEGATIVE) Urine Urobilinogen 0.2 (0.2) E.U./dL Ur Leukocyte Esterase Negative (NEGATIVE) Urine RBC None seen (0-5/HPF) Urine WBC None seen (0-5/HPF) Ur Squamous Epith Cells 0-1 /hpf (0-5/HPF) Urine Bacteria Occasional (0-1) (None) Ur Culture Indicated? Cult not indicated Vol Urine Centrifuged 10ml (spun) Blood Type A Negative Antibody Screen Positive Antibody Identification Anti-D Crossmatch See Detail MDM Narrative Medical decision making narrative: Patient is having bright red blood per rectum and is anemic here in the ER. She is symptomatic from this. She was given 1 unit of packed red blood cells. We did this after discussion about the risks and benefits. Given her age, need for blood transfusion, persistent bloody stool and symptomatic anemia plan will be is to admit to the hospital for further evaluation and treatment. Discussed the case with Dr. Kam on-call for General surgery who will see the patient tomorrow morning. Discussed the case with Dr. Lott who will admit. Discharge Plan Departure Patient Disposition: Admitted As Inpatient Clinical Impression: GI bleed, Anemia Admit Date/Time: 10/11/23 23:25 Admit Provider: Jerzy Ortiz
[2023-10-11 23:44] LABS: Hematocrit 25.2 % (36-46); Hemoglobin 8.1 g/dL (12.0-16.0)
--- NOTE | 2023-10-11 23:45 | PM.HP.1 ---
History of Present Illness History of Present Illness Date Patient Seen: 10/12/23 Chief complaint: needs blood transfussion Narrative: 88 y/o presented to ED anemic, daughter reporting intermittent bright red blood per rectum. On admission patient was very tired, unable to say a lot and her daughter was helpful with a history. She developed painless bleed, w/o preceding nausea, vomiting, abdominal pain, constipation, diarrhea. Seen in PCP's office earlier with Hb on capillary blood draw just above 5. In the ED Hb was > 7, 3 points lower then last from 6 months ago. [facility]LY [facility] Medical History Breast cancer Surgical History Total knee replacement status History of hip replacement Hx of appendectomy History of mastectomy Family History Mother CVA (cerebral vascular accident) Father Renal failure Alcoholism Social History household members: none Smoking Status: Former smoker alcohol intake: former Meds Home Medications and Allergies Home Medications Medication Instructions Recorded Confirmed Type No Known Home Medications 10/12/23 10/12/23 History Allergies Allergy/AdvReac Type Severity Reaction Status Date / Time azithromycin Allergy Verified 10/11/23 11:17 Penicillins Allergy Verified 06/28/23 09:06 Review of Systems Constitutional Comments: w/o fever or chills Cardiovascular Comments: w/o chest pain Respiratory Comments: w/o shortness of breath Gastrointestinal Comments: noted blood in the stool weeks ago, on and off Genitourinary Comments: w/o dysuria Hematologic/Lymphatic Comments: w/o bruising Exam Vital Signs (past 8 hours): - 10/11/23 16:01 10/11/23 16:30 10/11/23 17:00 Temperature Pulse Rate 60 60 60 Respiratory Rate Blood Pressure Pulse Oximetry 89 L 100 100 10/11/23 17:30 10/11/23 18:00 10/11/23 18:06 Temperature Pulse Rate 62 64 64 Respiratory Rate Blood Pressure Pulse Oximetry 100 100 100 10/11/23 18:06 10/11/23 18:30 10/11/23 18:40 Temperature Pulse Rate 63 Respiratory Rate Blood Pressure 160/71 H 181/78 H Pulse Oximetry 100 10/11/23 18:40 10/11/23 19:00 10/11/23 19:30 Temperature Pulse Rate 72 62 64 Respiratory Rate Blood Pressure Pulse Oximetry 100 99 99 10/11/23 20:00 10/11/23 20:09 10/11/23 20:10 Temperature 98.5 F Pulse Rate 62 62 Respiratory Rate 18 Blood Pressure 174/68 H 174/68 H Pulse Oximetry 99 10/11/23 20:10 10/11/23 20:25 10/11/23 20:30 Temperature 98.3 F Pulse Rate 62 62 61 Respiratory Rate 18 Blood Pressure 160/72 H Pulse Oximetry 99 98 10/11/23 20:32 10/11/23 20:32 10/11/23 21:00 Temperature Pulse Rate 61 62 Respiratory Rate 18 Blood Pressure 160/72 H Pulse Oximetry 97 98 10/11/23 22:00 10/11/23 22:30 10/11/23 23:00 Temperature Pulse Rate 61 66 58 L Respiratory Rate 18 Blood Pressure Pulse Oximetry 98 97 97 10/11/23 23:02 10/11/23 23:02 10/11/23 23:10 Temperature 97.9 F Pulse Rate 61 58 L Respiratory Rate 16 Blood Pressure 154/70 H 154/70 H Pulse Oximetry 97 Oxygen Delivery Method Room Air Const Other: laying in bed in no distress, daughter at bedside, poor historian, daughter helpful Eyes Other: glasses, EOMI Neck Other: supple Resp Other: normal respiratory effort Cardio Other: RRR / borderline bradycardic GI Other: w/o distension or tenderness Skin Other: pale Neuro Other: w/o deficits Extrem Other: w/o swelling Psych Other: appropriate mood Objective Labs 10/12/23 05:58 10/12/23 05:58 Labs: Laboratory Results - last 24 hr 10/11/23 10/11/23 10/11/23 14:37 18:35 23:30 WBC 5.0 RBC 3.11 L Hgb 7.4 L 8.1 L Hct 23.9 L 25.2 L MCV 76.8 L MCH 23.7 L MCHC 30.9 RDW 18.7 H Plt Count 111 L Neut % (Auto) Not Reportable Lymph % (Auto) Not Reportable [place] % (Auto) Not Reportable Eos % (Auto) Not Reportable Baso % (Auto) Not Reportable Lymph # (Auto) Not Reportable [place] # (Auto) Not Reportable Baso # (Auto) Not Reportable Total Counted 100 Seg Neutrophils % 61.0 Lymphocytes % (Manual) 23.0 L Monocytes % (Manual) 16.0 H Neutrophils # (Manual) 3050 RBC Morphology See below Anisocytosis 2+ H PT 12.7 H INR 1.1 APTT 33 Sodium 140 Potassium 3.8 Chloride 112 H Carbon Dioxide 23 BUN 17 Creatinine 0.63 Estimated GFR > 60 BUN/Creatinine Ratio 27.0 H Glucose 95 Calcium 8.6 Total Bilirubin 0.7 AST 30 ALT 20 Alkaline Phosphatase 102 Total Protein 6.4 Albumin 4.0 Globulin 2.4 Albumin/Globulin Ratio 1.7 Urine Color Yellow Urine Appearance Clear Urine pH 6.0 Ur Specific [place] 1.015 Urine Protein Negative Urine Glucose (UA) Negative Urine Ketones Negative Urine Occult Blood Negative Urine Nitrate Negative Urine Bilirubin Negative Urine Urobilinogen 0.2 Ur Leukocyte Esterase Negative Urine RBC None seen Urine WBC None seen Ur Squamous Epith Cells 0-1 /hpf Urine Bacteria Occasional (0-1) Ur Culture Indicated? 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
[2023-10-12] VITALS (8 sets, daily range): BP systolic 145–176; BP diastolic 61–98; PULSE 51–74; RESP 15–17; TEMP 36.1–37; O2SAT 95–98; BMI 21.4
[2023-10-12 06:29] LABS: Add Manual Diff / Slide Review NO; Basophils Absolute Auto 0 /uL (0-100); Basophils Percent Auto 0.8 % (0-2); Eosinophils Absolute Auto 0 /uL (0-450); Eosinophils Percent Auto 0.3 % (2-4); Hematocrit 30.1 % (36-46); Hemoglobin 9.6 g/dL (12.0-16.0); Lymphocytes Absolute Auto 700 /uL (1100-4500); Mean Corpuscular Hemoglobin 25.1 PG (26-34); Mean Corpuscular Volume 78.5 fL (80-100); Monocytes Absolute Auto 1600 /uL (0-900); Monocytes Percent Auto 31.2 % (3-14); Neutrophils Absolute Auto 2800 /uL (1500-7000); Neutrophils Percent Auto 54.7 % (50-75); Platelet Count 98 X10^3/uL (150-400); Red Blood Cell Count 3.83 X10^6/uL (4.0-5.2); Red Cell Distribution Width 19.2 % (11.6-14.8); White Blood Cell Count 5.2 X10^3/uL (4.5-11.0)
--- NOTE | 2023-10-12 06:47 | PC.NURSE ---
Patient admitted to room 209 from ED at 0025. Patient A & O x 1, very confused and restless, ties to get OOB without assist, pulls at tubes, unsteady and weak. Up to BSC with assist of 1 and FWW. Daughter Tamera at bedside. Bed alarm on. One unit of PRBC infused, patient tolerated well. SB eith PACs per tele.
[2023-10-12 06:57] LABS: BUN Creatinine Ratio 20.6 (6-22); Blood Urea Nitrogen 13 mg/dL (7-17); Calcium 8.2 mg/dL (8.4-10.2); Carbon Dioxide 24 mmol/L (22-32); Chloride 111 mmol/L (98-107); Estimated Glomerular Filt Rate > 60 mL/min (>60); Glucose 88 mg/dL (80-110); HEMOLYSIS 20 (0-50); Potassium 3.6 mmol/L (3.4-5.1); Sodium 140 mmol/L (137-145)
[2023-10-12] MEDS: PANTOPRAZOLE 40 MG VIAL 20 MG IV (08:27)
[2023-10-12] MEDS: QUETIAPINE 25 MG TABLET PO (08:28)
--- NOTE | 2023-10-12 12:00 | CM.DANOTE ---
DCP Assessment Note: Pt is a 88yo female, resident of [facility], is admitted for a lower GI bleed and anemia. Pt lives in a house alone with her daughter who lives [address] away. Pt's Primary Care Provider is Dr. Zhen Anaya and insurance is Medicare and D[employer]. Reviewed chart and team rounds for pt's medical status and initial discharge needs. DCP met w/patient at bedside; introduced self and role. Pt was found sitting up at the edge of the bed, waiting for assistance from the nurse to utilize the restroom. Present in the room is pt's daughter/DPOA, Edwar, who acted as a good historian for patient, pt did not answer independently. Pt daughter confirmed living situation and explained good support in family members who check on the patient at least twice a day to ensure her medications are managed and she had her meals. Pt's daughter does not anticipate any discharge needs at this time, denied this DCP's offer for home health referral. Plan: Anticipating dc home with family to transport back to [facility] when medically stable. CM team will plan to follow clinical course closely for assessment of need and coordination of discharge plan. ARLENE Rene Discharge Planning/Care Management CM Discharge Assessment Start: 10/12/23 11:54 Freq: Status: Active Protocol: Document 10/12/23 11:55 MW (Rec: 10/12/23 11:59 MW [id number]) Discharge Planning Assessment Assigned [employer] Teacher DEAN Khan/Assigned Designee Name Edwar Pedroza, Norma Contact Information [phone] Advance Directives? Yes Advance Directives on File No History Provided By Patient,Family Member, Significant Other,Medical Record Has Patient been admitted in last 30 No days? Prior Living Arrangements House Comment Daughter lives [address]. Household Members none Type of transporation used prior to Drives own vehicle admit Independent with ADL's Yes Is patient alert and oriented? No: Pt has a past medical history of dementia. Needs Assistance With Eating,Toileting,Home Chores / Shopping Comment Per daughter, pt is able to live at home indepenently prior to admission but has two daughters checking in both in the morning and evening to ensure pt is eating meals. Caregiver for Another No DME Already Rented / Owned Cane Barriers to Discharge No Comment Will be staying with her daughter on [facility]. Discharge Plan Home Transportation Arrangement Family Referrals Initiated None needed Whiteboard Updated in Patient Room with Yes name and ext. # of [employer] Social Science Teacher Comment [phone] Please Provide Date Initial DC 10/12/23 Assessment Was Performed
[2023-10-12 14:02] LABS: Hematocrit 32.3 % (36-46); Hemoglobin 10.4 g/dL (12.0-16.0)
--- NOTE | 2023-10-12 14:52 | PM.DS.1 ---
History of Present Illness History of Present Illness Date Patient Seen: 10/12/23 Time Patient Seen: 14:52 Chief complaint: needs blood transfussion Narrative: Per admitting provider, 88 y/o presented to ED anemic, daughter reporting intermittent bright red blood per rectum. On admission patient was very tired, unable to say a lot and her daughter was helpful with a history. She developed painless bleed, w/o preceding nausea, vomiting, abdominal pain, constipation, diarrhea. Seen in PCP's office earlier with Hb on capillary blood draw just above 5. In the ED Hb was > 7, 3 points lower then last from 6 months ago. Discharge Providers Provider Date of admission: 10/11/23 23:25 Discharge Date: 10/12/23 Primary care physician: Zhen Anaya MD Consults: 10/11/23 23:03 Consult to General Surgery Stat Comment: Consulting Provider: Sonny Kam Reason for consultation: GI bleed Has provider been notified: Yes Discharge provider: Glen Nicholas DO Summary Hospital Course Discharge Diagnosis: (1) Lower GI bleed with acute blood loss anemia (2) Dementia with acute hospital delirium (3) History of TIA (transient ischemic attack): Hospital Course: This is an 88 year old female with PMH of HTN, TIA, dementia who was sent in from her primary care provider after having hematochezia and a Hg of under 6. She was given 2U PRBC transfusion with improvement to Hg of 9, which continued to trend up over 10. She had no further bleeding with observation. Surgery consulted and discussed with the patient and family, whom did not elect to persue endoscopic evaluation at this time. She was more confused according to the family, more likely due to hospital delirium after admission as h/h continued to improve and there were no signs of infectious etiologies nor metabolic abnormalities. Discussed continued observation in the hospital and discharge home. Family elected for discharge home after care discussion. She had stopped taking seroquel, but given recent change from her home environment seroquel was re-prescribed. She was prescribed small dose of pantoprazole as well, though this can probably be discontinued shortly as the likelihood of upper source is highly unlikely. Recommend palliative care consultation if able as an outpatient, though patient is not currently on any medications. Time Spent with Patient Time spent: Greater than 30 minutes Exam Vital Signs (past 8 hours): - 10/12/23 09:00 Temperature 97.0 F L Pulse Rate 51 L Respiratory Rate 16 Blood Pressure 171/98 H Pulse Oximetry 95 Oxygen Delivery Method Room Air Oxygen Flow Rate 0 Narrative Exam Narrative: Gen: elderly female, confused, trying to pull off blanket and gown. Abd: S ND Ext: no edema Objective Labs 10/12/23 13:45 10/12/23 05:58 Labs: Laboratory Results - last 24 hr 10/11/23 10/11/23 10/11/23 14:37 18:35 23:30 WBC 5.0 RBC 3.11 L Hgb 7.4 L 8.1 L Hct 23.9 L 25.2 L MCV 76.8 L MCH 23.7 L MCHC 30.9 RDW 18.7 H Plt Count 111 L Neut % (Auto) Not Reportable Lymph % (Auto) Not Reportable [place] % (Auto) Not Reportable Eos % (Auto) Not Reportable Baso % (Auto) Not Reportable Neut # (Auto) Lymph # (Auto) Not Reportable [place] # (Auto) Not Reportable Eos # (Auto) Baso # (Auto) Not Reportable Total Counted 100 Seg Neutrophils % 61.0 Lymphocytes % (Manual) 23.0 L Monocytes % (Manual) 16.0 H Neutrophils # (Manual) 3050 RBC Morphology See below Anisocytosis 2+ H PT 12.7 H INR 1.1 APTT 33 Sodium 140 Potassium 3.8 Chloride 112 H Carbon Dioxide 23 BUN 17 Creatinine 0.63 Estimated GFR > 60 BUN/Creatinine Ratio 27.0 H Glucose 95 Calcium 8.6 Total Bilirubin 0.7 AST 30 ALT 20 Alkaline Phosphatase 102 Total Protein 6.4 Albumin 4.0 Globulin 2.4 Albumin/Globulin Ratio 1.7 Urine Color Yellow Urine Appearance Clear Urine pH 6.0 Ur Specific [place] 1.015 Urine Protein Negative Urine Glucose (UA) Negative Urine Ketones Negative Urine Occult Blood Negative Urine Nitrate Negative Urine Bilirubin Negative Urine Urobilinogen 0.2 Ur Leukocyte Esterase Negative Urine RBC None seen Urine WBC None seen Ur Squamous Epith Cells 0-1 /hpf Urine Bacteria Occasional (0-1) Ur Culture Indicated? Cult not indicated Vol Urine Centrifuged 10ml (spun) Blood Type A Negative Antibody Screen Positive Antibody Identification Anti-D Crossmatch See Detail 10/12/23 10/12/23 05:58 13:45 WBC 5.2 RBC 3.83 L Hgb 9.6 L 10.4 L Hct 30.1 L 32.3 L MCV 78.5 L MCH 25.1 L MCHC 32.0 RDW 19.2 H Plt Count 98 L Neut % (Auto) 54.7 Lymph % (Auto) 13.0 L [place] % (Auto) 31.2 H Eos % (Auto) 0.3 L Baso % (Auto) 0.8 Neut # (Auto) 2800 Lymph # (Auto) 700 L [place] # (Auto) 1600 H Eos # (Auto) 0 Baso # (Auto) 0 Total Counted Seg Neutrophils % Lymphocytes % (Manual) Monocytes % (Manual) Neutrophils # (Manual) RBC Morphology Anisocytosis PT INR APTT Sodium 140 Potassium 3.6 Chloride 111 H Carbon Dioxide 24 BUN 13 Creatinine 0.63 Estimated GFR > 60 BUN/Creatinine Ratio 20.6 Glucose 88 Calcium 8.2 L Total Bilirubin AST ALT Alkaline Phosphatase Total Protein Albumin Globulin Albumin/Globulin Ratio Urine Color Urine Appearance Urine pH Ur Specific [place] Urine Protein Urine Glucose (UA) Urine Ketones Urine Occult Blood Urine Nitrate Urine Bilirubin Urine Urobilinogen Ur Leukocyte Esterase Urine RBC Urine WBC Ur Squamous Epith Cells Urine Bacteria Ur Culture Indicated? Vol Urine Centrifuged Blood Type Antibody Screen Antibody Identification Crossmatch [facility] Medical History Breast cancer Surgical History Total knee replacement status History of hip replacement Hx of appendectomy History of mastectomy Family History Mother CVA (cerebral vascular accident) Father Renal failure Alcoholism Social History household members: none Smoking Status: Former smoker alcohol intake: former Discharge Plan Discharge Plan Patient Disposition: Home Provider Discharge Comment: Admitted to the hospital with bleeding. H/h stabilized and improved. You did not want endoscopy at this time. Recommend f/u with PCP next week, repeat blood counts, and consider palliative care consultation. Discharge orders & Medications Prescriptions: New quetiapine [Seroquel] 25 mg tablet 25 mg PO BEDTIME 30 Days Qty: 30 0RF pantoprazole 20 mg tablet,delayed release (DR/EC) 20 mg PO DAILY 14 Days Qty: 14 0RF Follow up/Referrals: Zhen Anaya MD [Primary Care Provider] - Diet/Activity/Treatments Diet: Diet as Tolerated and Regular Activity: No restrictions Visit Report/Discharge Packet Stand Alone Forms: Patient Portal/API, Stroke Signs & Symptoms Discharge Data Primary Care Provider: Zhen Anaya
--- NOTE | 2023-10-12 17:08 | PC.NURSE ---
Patient is A&OX1, VSS, afebrile on RA. She has been bradycardic 50's on telemetry and slightly hypertensive. She is medically cleared for discharge today after repeat blood counts h/h continued to improve. She had a few loose stools today, orange in color w/o obvious bleeding. Her daughter Mary Ann at bedside supportive verbalizes understanding of medications and follow up plan of care. She is escorted via w/ch with all of her belongings to private car with her daughter at 1525 this afternoon for discharge home back to [facility].
== END 2023-10-12 15:30 | disposition home or self-care (01) | DRG 378 ==
LOC: ED 23:25 → AC 23:26
PROVIDERS: Emergency Medicine; Internal Medicine; Admitting Provider Internal Medicine; Emergency Provider Emergency Medicine; PCP Family Medicine; Referring Provider Emergency Medicine; Visit Provider Internal Medicine
DX: K92.2 Gastrointestinal hemorrhage, unspecified (principal); D62 Acute posthemorrhagic anemia; I10 Essential (primary) hypertension; F03.90 Unspecified dementia, unspecified severity, without behavioral disturbance, psychotic disturbance, mood disturbance, and anxiety; Z86.73 Personal history of transient ischemic attack (TIA), and cerebral infarction without residual deficits
CPT/HCPCS: 36415; 36430; 80048; 80053; 81001; 85007; 85014; 85018; 85025; 85610; 85730; 86850; 86870; 86900; 86901; 96374; 99284; P9016; C9113